=== PATIENT | male | born 1940 | race Caucasian/White ===

== ENCOUNTER 2023-09-11 07:45 | Outpatient (OUT) | payer OTHER, MEDICARE, SELFPAY ==
[2023-09-11 08:35] LABS: Creatinine Urine Random 150.14 mg/dL (20.00-300.00); Microalbum Creatinine Ratio Ur 170.5 mg/g (0.0-29.9); Microalbumin Urine Random 25.6 mg/dL (<=30.0)
[2023-09-11 08:58] LABS: Albumin Level 3.7 g/dL (3.4-5.0); Anion Gap 11.8; BUN Creatinine Ratio 20.6; Calcium 9.5 mg/dL (8.5-10.1); Carbon Dioxide 27.3 mmol/L (21.0-32.0); Chloride 102 mmol/L (98-107); Chol HDL Ratio 4.4; Cholesterol 193 mg/dL (<=200); Estimated GFR (African America 58 (>=60); Estimated GFR (Non-African Ame 48 (>=60); Glucose 119 mg/dL (74-106); HDL Cholesterol 44 mg/dL (40-60); LDL Cholesterol Calculated 121.4 mg/dL; Phosphorus 4.8 mg/dL (2.6-4.7); Potassium 4.1 mmol/L (3.5-5.1); Sodium 137 mmol/L (136-145); Triglycerides 138 mg/dL (<=150); VLDL CHOLESTEROL 27.6 mg/dL
== END 2023-09-11 07:46 | disposition home or self-care (01) ==
LOC: LAB 07:51
PROVIDERS: Visit Provider Internal Medicine
DX: E11.49 Type 2 diabetes mellitus with other diabetic neurological complication (principal); E66.9 Obesity, unspecified; Z71.3 Dietary counseling and surveillance; Z79.4 Long term (current) use of insulin
CPT/HCPCS: 36415; 80061; 80069; 82043; 82306; 82570

== ENCOUNTER 2024-03-10 16:07 | Emergency (ER) | payer OTHER, MEDICARE, SELFPAY ==
[2024-03-10 16:14] VITALS: BP 162/81; PULSE 79; TEMP 36.8; O2SAT 98; BMI 32.5
--- NOTE | 2024-03-10 16:20 | XR_ITS ---
The [address] [address] Patient Name: JELLY ALVARES MRN: [id number] date: 1940 Sex: M Assigned Patient Location: ER Current Patient Location: ER Accession/Order Number: [id number] Exam Date: 03/10/2024 16:27 Report Date: 03/10/2024 16:56 At the request of: CHARLY HEARN Procedure: XR chest 1V EXAM: CHEST 1 VIEW HISTORY: Cough, Covid + TECHNIQUE: Chest, one view. COMPARISON: None. FINDINGS: Lungs are clear. No focal consolidation, pleural effusion, or pneumothorax. Pulmonary vasculature is within normal limits. Cardiomediastinal silhouette is normal. XR/XR chest 1V IMPRESSION: 1. Clear lungs without acute cardiopulmonary disease. With patient's history of Covid infection, recommend followup imaging if symptoms worsen or persist. Electronically authenticated by: EBONY RUBIO Date: 03/10/2024 16:56
--- NOTE | 2024-03-10 16:21 | ED_ITS ---
HPI - URI/Sore Throat General Chief Complaint: Upper Respiratory Infection Stated Complaint: URTI Time Seen by Provider: 03/10/24 16:09 History of Present Illness HPI Narrative: Patient is an 83-year-old male with a 3-day history of runny nose, cough and chest congestion who presents to the ER after a positive COVID test at home. He states he talked to his doctor's office today, his doctor is aware that he tested positive for COVID and recommended that the patient stay home and take zinc. Patient states he presents to the emergency department for something for the COVID . He has no complaints of chest pain, no significant sputum production or wheezing. No objective fevers or vomiting. He has no history of diabetes, no history of coronary artery disease. He takes only a blood pressure medication daily. Related Data Home Medications ?Medication ?Instructions ?Recorded ?Confirmed spironolactone 25 mg tablet 25 mg PO DAILY 03/10/24 03/10/24 Previous Rx's ?Medication ?Instructions ?Recorded albuterol sulfate 90 mcg/actuation 2 inh inhalation Q4H PRN shortness 03/10/24 aerosol inhaler of breath or wheezing #8.5 grams dexamethasone 4 mg tablet 4 mg PO BID 5 days #10 tabs 03/10/24 Allergies Allergy/AdvReac Type Severity Reaction Status Date / Time No Known Drug Allergies Allergy Verified 03/10/24 16:13 Review of Systems ROS Constitutional Denies: fever or chills Ears, nose, mouth, and throat Reports: nasal congestion; Denies: throat pain Cardiovascular Denies: chest pain Respiratory Reports: shortness of breath and cough; Denies: wheezing Gastrointestinal Denies: nausea or vomiting Musculoskeletal Denies: back pain Integumentary/Breast Denies: rash Neurological Denies: headache Hematologic/Lymphatic Denies: easy bruising or easy bleeding Exam Narrative Exam Narrative: Gen.: Awake, alert, in no distress Head: Normocephalic, atraumatic ENT: Moist mucous membranes Respiratory: No respiratory distress, lungs clear bilaterally Cardio: Regular rate and rhythm Extremities: Moves extremities equally Psych: Normal mood and affect Neuro: No focal neuro deficit Skin: Warm, dry, intact Constitutional Vital Signs, click to edit/add: Last Vital Signs Temp 98.2 F 03/10/24 16:14 Pulse 79 03/10/24 16:14 Resp 18 03/10/24 16:14 BP 162/81 H 03/10/24 16:14 Pulse Ox 98 03/10/24 16:14 O2 Del Method Room Air 03/10/24 16:14 Course Vital Signs Vital signs: Vital Signs Temperature 98.2 F 03/10/24 16:14 Pulse Rate 79 03/10/24 16:14 Respiratory Rate 18 03/10/24 16:14 Blood Pressure 162/81 H 03/10/24 16:14 Pulse Oximetry 98 03/10/24 16:14 Oxygen Delivery Method Room Air 03/10/24 16:14 Temperature 98.2 F 03/10/24 16:14 Pulse Rate 79 03/10/24 16:14 Respiratory Rate 18 03/10/24 16:14 Blood Pressure 162/81 H 03/10/24 16:14 Pulse Oximetry 98 03/10/24 16:14 Oxygen Delivery Method Room Air 03/10/24 16:14 MDM - URI/Sore Throat MDM Narrative Medical decision making narrative: Vital signs are within normal limits, patient breathing easily in the ER. Chest x-ray is clear. Patient was given home-going instructions for COVID. Decadron, albuterol inhaler given for home. Follow-up with PCP and return to the ER if symptoms change or worsen SUPERVISED APC VISIT, PHYSICIAN ATTESTATION: Based on the medical record the care appears appropriate. ? Medical Records Attestation: I reviewed the patient's medical records. Imaging Data Chest x-ray: Attestation: I have reviewed the pertinent imaging results. Radiologist's impression: ITS Impressions Chest X-Ray 03/10/24 16:20 IMPRESSION: 1. Clear lungs without acute cardiopulmonary disease. With patient's history of Covid infection, recommend followup imaging if symptoms worsen or persist. Electronically authenticated by: EBONY RUBIO Date: 03/10/2024 16:56 Discharge Plan Discharge Stand Alone Forms: Portal Instructions Chief Complaint: Upper Respiratory Infection Clinical Impression: COVID-19 Patient Disposition: Home, Self-Care Time of Disposition Decision: 17:02 Condition: Good Prescriptions / Home Meds: New dexamethasone 4 mg tablet 4 mg PO BID 5 Days Qty: 10 0RF albuterol sulfate 90 mcg/actuation HFA aerosol inhaler 2 inh inhalation Q4H PRN (Reason: shortness of breath or wheezing) Qty: 8.5 0RF No Action spironolactone 25 mg tablet 25 mg PO DAILY Print Language: Amharic Instructions: How to Recover from COVID-19 at Home (ED) Referrals: ALONSO BOLTON [Primary Care Provider] - 1 week
[2024-03-10 17:12] VITALS: BP 158/74; O2SAT 99
== END 2024-03-10 17:12 | disposition home or self-care (01) ==
PROVIDERS: Emergency Provider Emergency Medicine; PCP Family Medicine
DX: U07.1 COVID-19 (principal); Z79.899 Other long term (current) drug therapy
CPT/HCPCS: 71045; 99283

== ENCOUNTER 2024-03-25 14:21 | Outpatient (OUT) | payer OTHER, MEDICARE, SELFPAY ==
--- NOTE | 2024-03-25 14:29 | US_ITS ---
The [address] [address] Patient Name: JELLY ALVARES MRN: [id number] date: 1940 Sex: M Assigned Patient Location: US Current Patient Location: US Accession/Order Number: [id number] Exam Date: 03/25/2024 14:30 Report Date: 03/25/2024 15:05 At the request of: ALONSO BOLTON Procedure: US venous doppler LE LT EXAM: US venous doppler LE LT HISTORY: Ulcers Of Bilateral Lower Leg, Acute Leg Pain COMPARISON: None. TECHNIQUE: Multiple sonographic images of the deep veins of the left lower extremity were obtained, supplemented with Doppler. FINDINGS: The deep veins of the left lower extremity are fairly well visualized from the groin to the mid calf. No filling defect is identified to indicate a thrombus. There is normal compression augmentation to flow. There is a nonhealing wound in the distal aspect of the lower leg and adjacent to the bone is a small incompetent varicose vein. US/US venous doppler LE LT IMPRESSION: There is no direct or indirect evidence of deep vein thrombosis in the left lower extremity at this time. Adjacent to the distal nonhealing wound is a small incompetent varicose vein, of uncertain significance. Electronically authenticated by: JAMISON MARTINEZ Date: 03/25/2024 15:05
== END 2024-03-25 14:22 | disposition home or self-care (01) ==
LOC: US 14:22
PROVIDERS: PCP Family Medicine; Visit Provider Family Medicine
DX: L97.911 Non-pressure chronic ulcer of unspecified part of right lower leg limited to breakdown of skin (principal); L97.921 Non-pressure chronic ulcer of unspecified part of left lower leg limited to breakdown of skin; T07.XXXA Unspecified multiple injuries, initial encounter; I87.2 Venous insufficiency (chronic) (peripheral); M79.605 Pain in left leg
CPT/HCPCS: 93971

== ENCOUNTER 2025-05-06 10:49 | Emergency (ER) | payer OTHER, MEDICARE, SELFPAY ==
--- OUTSIDE RECORDS SUMMARY | 2025-05-06 10:57 | XMS_ITS | Encounter Summary ---
Author Organization [facility] Address [address] [place] [address] Care Team Providers Care Cable Cutter And Swager Name Role Phone Arun Downey MD Unavailable [phone] Arun Downey MD Unavailable [phone] Gladis Cline MD Unavailable [phone] Genna Yañez MD Unavailable [phone] Unallocated, Noms Provider Primary Care Provi dilcia Encounter Details Date Type Department Care Team (Late st Contact Info) Description 10/20/2024 Orders Only [facility] Family Medicine [address] [place] [address] Arun Downey MD [address] [place] [address] Social History Tobacco Use Types Packs/Day Years Used Date Smoking Tobacco: Former Cigarettes Smokeless Tobacco: Never Comments:Last smoked : > 20 years Alcohol Use Standard Drinks/Week Comments Yes 4 (1 standard drink = 0.6 oz pur e alcohol) PHQ-2 Answer Date Recorded Patient Health Questionnaire-2 Score 0 10/23/2023 Sex and Gender Information Value Date Recorded Sex Assigned at Not on file Legal Sex Male 6:38 PM EDT Gender Identity Not on file Sexual Orientation Not on file documented as of this encounter Plan of Treatment Upcoming Encounters Date Type Department Care Team (Late st Contact Info) Description 05/09/2025 1:20 PM EDT Office Visit [facility] [address] [place] [address] Genna Yañze MD [address] [place] [address] documented as of this encounter Visit Diagnoses Not on filedocumented in this encounter Additional Health Concerns Assessment Noted Time PHQ-9 Depression Total Score: 0 10/23/19 24 2:00 PM EST documented as of this encounter Care Teams Cable Cutter And Swager Relationship Specialty Start Date End Date Arun Downey MD [address] [place] [address] PCP - [employer] 10/02/22 11/05/24 Arun Downey MD [address] [place] [address] PCP - [facility] 11/30/22 Unallocated, Noms Provider, [address] [place] [address] PCP - General Family Medicine 05/27/24 Gladis Cline MD [address] [place] [address] Referring Physician Dermatology 03/18/24 Genna Yañez MD [address] [place] [address] Referring Physician Endocrinology 03/18/24 documented as of this encounter
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
--- OUTSIDE RECORDS SUMMARY | 2025-05-06 10:57 | XMS_ITS | Encounter Summary ---
Author Organization [facility] Address [address], [address] [place] [address] Care Team Providers Care Community Resource Officer Name Role Phone Arun Downey MD Primary Care Provider [phone] Reason for Visit * Reason Comments Medication Refill Encounter Details Date Type Department Care Team (Late st Contact Info) Description 09/25/2020 Refill [facility] Neurology [address] [place] [address] Brigido Granados MD [address] [address] Medication Refill Social History Tobacco Use Types Packs/Day Years Used Date Smoking Tobacco: Never Smokeless Tobacco: Never Sex and Gender Information Value Date Recorded Sex Assigned at Not on file Legal Sex Male 1:52 PM EDT Gender Identity Not on file Sexual Orientation Not on file documented as of this encounter Plan of Treatment Upcoming Encounters Date Type Department Care Team (Late st Contact Info) Description 05/13/2025 11:00 AM EDT Appointment [facility] [address] [place] [address] Brigido Granados MD [address] [facility] [address] [place] [address] DYSPORT [address], BILATERAL DYSTONIA documented as of this encounter Visit Diagnoses Diagnosis Attention deficit hyperactivity disorder, combined type Attention deficit disorder with hyperactivity documented in this encounter Care Teams Community Resource Officer Relationship Specialty Start Date End Date Arun Downey MD PCP - General 01/08/22 documented as of this encounter
--- OUTSIDE RECORDS SUMMARY | 2025-05-06 10:57 | XMS_ITS | Encounter Summary ---
Author Organization [facility] Address [address] [place] [address] Care Team Providers Care Ski Lift Attendant Name Role Phone Arun Downey MD Unavailable [phone] Arun Downey MD Unavailable [phone] Gladis Cline MD Unavailable [phone] Genna Yañez MD Unavailable [phone] Unallocated, Noms Provider MD Primary Care Provi dilcia Encounter Details Date Type Department Care Team (Late st Contact Info) Description 01/12/2024 Orders Only [facility] Family Medicine [address] [facility] [place] [address] Genna Yañez MD [address] [place] [address] Social History Tobacco Use Types Packs/Day Years [...] Description 05/09/2025 1:20 PM EDT Office Visit [facility] [address] [place] [address] Genna Yañez MD [address] [place] [address] documented as of this encounter Procedures Procedure Name Priority Date/Time Associated Diagnosis Comments HEMOGLOBIN A1C Routine 01/12/2024 1:58 PM EDT documented in this encounter Results * (ABNORMAL) Hemoglobin A1c (01/12/2024 1:58 PM EDT) HEMOGLOBIN A1C 8.7 H Blood Venous blood specimen / Unknown Genna Yañez MD LAB BLOOD ORDERABLES Edited R esult - Final documented in this encounter Visit Diagnoses Not on filedocumented in this encounter Additional Health Concerns Assessment Noted Time PHQ-9 Depression Total Score: 0 10/23/19 24 2:00 PM EST documented as of this encounter Care Teams Ski Lift Attendant Relationship Specialty Start Date End Date Arun Downey MD [address] [place] [address] (Fax) PCP - [employer] 10/02/22 11/05/24 Arun Downey MD [address] [place] [address] (Fax) PCP - [employer] 11/30/22 Unallocated, Noms Provider, [address] [place] [address] PCP - General Family Medicine 05/27/24 Gladis Cline MD [address] [place] [address] Referring Physician Dermatology 03/18/24 Genna Yañez MD [address] [place] [id number] Referring Physician Endocrinology 03/18/24 documented as of this encounter
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
--- OUTSIDE RECORDS SUMMARY | 2025-05-06 10:57 | XMS_ITS | Clinical Summary ---
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 Active lisinopril 10 mg tablet Take 10 mg by mouth once daily. Active sitaGLIPtin-met FORMIN (JANUMET XR) 50-1,000 mg TM24 Take by mouth. Active Aspirin 81 mg Tab Take 81 mg by mouth. Active nateglinide (STARLIX) 120 mg tablet Take 120 mg by mouth as directed. Active tamsulosin (FLOMAX) 0.4 mg Cp24 Take 0.4 mg by mouth. Active montelukast (SINGULAIR) 10 mg tablet Take 10 mg by mouth as directed. Active ferrous sulfate 324 mg (65 mg iron) TbEC Take 1 tablet by mouth twice daily with meals. 60 tablet 0 05/22/2013 Active docusate sodium 100 mg capsule Take 1 capsule by mouth twice daily. 60 capsule 0 05/22/2013 Active traMADol (ULTRAM) 50 mg tablet Take 50 mg by mouth every 4 hours as needed. 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 12/16/2017 Overview (12/16/2017): Added automatically from request for surgery [id number] Primary localized osteoarthrosis, lower leg 05/02 Arthritis of knee, degenerative 01/04/2013 Unspecified essential hypertension Overview (05/20/2013): Essential hypertension Immunizations Immunization Administration Dates Next Due influenza vaccine, whole virus 12/30/2012 pneumococcal polysaccharide (PPV23) vaccine, 23 valent (PNEUMOVAX 23) 12/30/2012 Social History Tobacco Use Types Packs/Day Years Used Date Smoking Tobacco: Former Cigarettes 0 05/19/1953 - 05/19/1973 Pipe Cigars Smokeless Tobacco: Never Tobacco Cessation:Counseling Given: Yes Alcohol Use Standard Drinks/Week Comments Yes 1.3 (1 standard drink = 0.6 oz p ure alcohol) PHQ-2 Answer Date Recorded PHQ-2 score 1 12/16/2017 Area Deprivation Index Answer Date Oren rded National Score (1-100), lower number is lower ri sk Not on file 08/07/2020 State Score (1-10), lower number is lower risk N ot on file 08/07/2020 Data from: https://www.neighborhoodatlas.medicine.[facility].edu/. Last address used for calculation Not on file 08/07/2020 Sex and Gender Information Value Date Recorded Sex Assigned at Not on file Legal Sex Male 8:54 AM EST Gender Identity Not on file Sexual Orientation Not on file Last Filed Vital Signs Vital Sign Reading Time Taken Comments Blood Pressure 146/86 12/17/2017 2:34 PM EDT Pulse 92 12/17/2017 2:34 PM EDT Temperature 35.7 C (96.2 F) 12/17/2017 1:34 PM EDT Respiratory Rate 16 12/17/2017 2:34 PM EDT Oxygen Saturation 94% 12/17/2017 2:34 PM EDT Inhaled Oxygen Concentration - - Weight 99.8 kg (220 lb 0.3 oz) 12/17/2017 1:34 P M EDT Height 175.3 cm (5' 9 ) 05/19/2013 6:55 PM EDT Body Mass Index 32.49 05/19/2013 6:55 PM EDT Plan of Treatment Health Maintenance Due Date Last Done Comments Anxiety Screening 1958 Depression Screening 1958 DTaP,Tdap,Td Vaccine (1 - Tdap) 1960 Shingrix Vaccine (1 of 2) 1991 Pneumococcal Vaccine: 50+ (2 of 2 - PCV) 12/30/2013 12/30/2012 Diabetes Screening 05/22/2016 05/22/2013, 0 05/21/2013, 05/20/2013, Additional history exists RSV Vaccine (1 - 1-dose 75+ series) 2016 Advance Directive Discussion 09/01/2024 Influenza Vaccine (#1) 2025 12/30/2012 Medical Devices Implanted Type Area Insurance Law Specialist Device Identifier Shelf Expiration Date Model / Serial / Lot 0---Cement Bone Simplex P W/ Tobramycin 1gm - [id number] Implanted:Qty: 2 on 05/19/2013 at [facility] Cement / Putty Right: Bone - Knee [employer] 10/29/2014 [id number] / / [id number]---Ins Tib 6 9mm Kn X3 Ps Trthln - [id number] Implanted:Qty: 1 on 05/19/2013 at [facility] Joint - Knee Right: Bone - Knee [employer] 02/28/2018 [id number] / / [id number]---Comp Fem 6 Rt Kn Ps Alfonso Trthln - [id number] Implanted:Qty: 1 on 05/19/2013 at [facility] Joint - Knee Right: Bone - Knee [employer] 02/28/2018 [id number] / / [id number]---Comp Pat 10mm 35mm Asym Trthln - [id number] Implanted:Qty: 1 on 05/19/2013 at [facility] Joint - Patella Right: Bone - Knee [employer] 08/31/2017 [id number] / / [id number]---Baseplt Tib Trthln 6 Prim - [id number] Implanted:Qty: 1 on 05/19/2013 at [facility] Plate Right: Bone - Knee [employer] 05/31/2018 [id number] / / [id number] Procedures Procedure Name Priority Date/Time Associated Diagnosis Comments BASIC METABOLIC PANEL (EU,FV,HL,SARBJIT,MM,SP) Routine 05/22/2013 6:20 AM EDT from Last 3 Months or Most Recently Relevant to Health Maintenance Results * (ABNORMAL) BASIC METABOLIC PANEL (EU,FV,HL,LK,SARBJIT,MM,SP) (05/22/2013 6:20 AM EDT) Glucose 144(H) 65 - 100 mg/dL [facility] BUN 15 10 - 25 mg/dL [facility] Creatinine 1.02 0.70 - 1.40 mg/dL [facility] Sodium 135 135 - 146 mmol/L [facility] Potassium 4.4 3.5 - 5.0 mmol/L [facility] Chloride 99 98 - 110 mmol/L [facility] CO2 28 23 - 32 mmol/L [facility] Calcium 8.1(L) 8.5 - 10.5 mg/dL [facility] Glom Filtration Rate (AA) >60 >60 [facility] Glom Filtration Rate (AMARILIS) >60 >60 . [facility] Blood specimen (specimen) BLOOD SPECIMEN / Unknown 05/22/2013 6:20 AM EDT 05/22/2013 7:04 AM EDT us Jimmy Rubin MD [facility] Final Result [facility] [address] [address] from Last 3 Months or Most Recently Relevant to Health Maintenance Insurance [employer] MEDICARE MEDICARE [facility] Advance Directives Documents on File Type Date Recorded Patient Telecommunications Specialist Expl anation Advance Directive(s) 05/25/2013 9:57 AM Care Teams Trailer Truck Driver Relationship Specialty Start Date End Date Antonio Maki Jr., [facility] [place] [address] PCP - General Internal Medicine 12/22/12
--- OUTSIDE RECORDS SUMMARY | 2025-05-06 10:57 | XMS_ITS | Encounter Summary ---
Author Organization [facility] Address [address] [place] [address] Care Team Providers Care It Systems Analyst Consultant Name Role Phone Arun Downey MD Unavailable [phone] Arun Downey MD Unavailable [phone] Gladis Cline MD Unavailable [phone] Genna Yañez MD Unavailable [phone] Unallocated, Noms Provider Primary Care Provi dilcia Encounter Details Date Type Department Care Team (Late st Contact Info) Description 06/30/2024 Orders Only [facility] [address] [place] [address] Brain November, Venous stasis dermatitis of both lower extremities; Multiple open wounds; Venous insufficiency; Type 2 diabetes mellitus with stage 3a chronic kidney disease, with long-term current use of insulin (HCC); Varicose veins of bilateral lower extremities with other complications Social History Tobacco Use Types Packs/Day Years [...] PM EDT Office Visit [facility] [address] [place] [address] Genna Yañez MD [address] [place] [address] documented as of this encounter Visit Diagnoses Diagnosis Venous stasis dermatitis of both lower extremities Multiple open wounds Open wound(s) (multiple) of unspecified site(s), without mention of complication Venous insufficiency Unspecified venous (peripheral) insufficiency Type 2 diabetes mellitus with stage 3a chronic kidney disease, 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, with long-term current use of insulin (HCC) documented in this encounter Additional Health Concerns Assessment Noted Time PHQ-9 Depression Total Score: 0 10/23/19 24 2:00 PM EST documented as of this encounter Care Teams It Systems Analyst Consultant Relationship Specialty Start Date End Date Arun Downey MD [address] [facility] [address] [place] [address] PCP - [employer] 10/02/22 11/05/24 Arun Downey MD [address] [address] PCP - [employer] 11/30/22 Unallocated, Guillermo Thurman MD [address] [place] [address] PCP - General Family Medicine 05/27/24 Gladis Cline MD [address] [place] [address] Referring Physician Dermatology 03/18/24 Genna Yañez MD [address] [place] [address] Referring Physician Endocrinology 03/18/24 documented as of this encounter
--- OUTSIDE RECORDS SUMMARY | 2025-05-06 10:57 | XMS_ITS | Clinical Summary ---
Author Organization [facility] Address [address] [facility], [address] [place] [address] Care Team Providers Care Embedded Case Manager Name Role Phone Arun Downey MD Primary Care Provider [phone] Allergies No known active allergies Medications metFORMIN (GLUCOPHAGE) 1000 MG tablet Take 1 tablet by mouth 2 times daily (with meals) Active traMADol (ULTRAM) 50 MG tablet Take 50 mg by mouth every 6 hours as needed for Pain.. Active insulin detemir (LEVEMIR) 100 UNIT/ML injection vial Inject 60 Units into the skin nightly Active aspirin EC 81 MG EC tablet Take 81 mg by mouth daily Active lisinopril (PRINIVIL;ZESTR IL) 10 MG tablet Take 1 tablet by mouth daily Active tamsulosin (FLOMAX) 0.4 MG capsule Take 1 capsule by mouth daily Active montelukast (SINGULAIR) 10 MG tablet Take 1 tablet by mouth nightly Active Cholecalciferol (VITAMIN D3) 2000 units CAPS Take 2,000 Units by mouth Active colesevelam (WELCHOL) 625 MG tablet Take 3 tablets by mouth 2 times daily (with meals) Active pioglitazone (ACTOS) 15 MG tablet Take 1 tablet by mouth daily Active pravastatin (PRAVACHOL) 40 MG tablet Take 1 tablet by mouth daily Active diclofenac sodium 1 % GEL Apply 2 g topically 2 times daily Active apixaban (ELIQUIS) 5 MG TABS tablet Take 1 tablet by mouth 2 times daily 60 tablet 8 Active insulin lispro (HUMALOG) 100 UNIT/ML injection vial Inject 0-12 Units into the skin 3 times daily (with meals) pls give pt rick. Dx:E11.65 10 mL 3 8 Active Additional Information Patient not taking.Reported on 10/12/2024 insulin glargine (LANTUS) 100 UNIT/ML injection pen Insulin Glargine Insulin Glargine Active 50 UNIT Subcutaneous Daily July 31, 2019 9:29am 07-31-2019 [facility] ([id number]) 9 Active B-D UF III MINI PEN NEEDLES 31G X 5 MM [facility] 9 Active NOVOLOG FLEXPEN 100 UNIT/ML injection pen INJECT 6-8-10 UNITS ACCORDING TO MEAL SIZE (PLUS SLIDIDNG SCALE EXPECT UP TO 40 TOTAL DAILY UNITS) 2 Active ciprofloxacin (CIPRO) 500 MG tablet TAKE 1 TABLET (500 MG) BY MOUTH IN THE MORNING AND BEFORE BEDTIME FOR 10 DAYS 5 Active Continuous Glucose Sensor (FREESTYLE YUE 2 SENSOR) [facility] 4 Active FIASP FLEXTOUCH 100 UNIT/ML SOPN INJECT 15-18-20 UNITS ACCORDING TO MEAL SIZE PLUS ISS #2 (EXPECT DAILY DOSE OF 70 UNITS) 5 Active spironolactone (ALDACTONE) 25 MG tablet Take 1 tablet by mouth 2 times daily 4 Active methylphenidate (RITALIN) 10 MG tabletIndicatio ns:Cataplexy and narcolepsy Take 1 tablet by mouth 3 times daily for 30 days. Max Daily Amount: 30 mg 90 tablet 5 Active Active Problems Problem Noted Date Diagnosed Date Failed neck syndrome 05/07/2023 Left lower quadrant pain 03/29/2022 Unspecified abdominal pain 03/29/2022 Cough, unspecified 12/15/2021 Localized edema 07/11/2021 Other specified arthritis, unspecified site 07/02 Type 2 diabetes mellitus with hyperglycemia 07/02 Other specified symptoms and signs involving the circulatory and respiratory systems 07/06/2021 Local infection of the skin and subcutaneous tissue, unspecified 06/21/2021 Unspecified open wound, left lower leg, initial encounter 06/21/2021 Cervical dystonia 12/12/2020 Attention deficit hyperactivity disorder, combin ed type 02/07/2020 Cutaneous hypersensitivity 12/09/2019 Essential (primary) hypertension 10/04/2019 Overview (04/25/2022): Overview: Essential hypertension Essential hypertension 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 Dietary counseling and surveillance 01/15/2019 shelter current use of insulin 01/15/2019 Mixed hyperlipidemia 01/15/2019 Obesity 01/15/2019 Type 2 diabetes mellitus 01/08/2019 Bursitis of right shoulder 06/22/2018 Bursitis of right shoulder 06/22/2018 Effusion, left wrist 06/22/2018 Left wrist pain 06/22/2018 Impingement syndrome of right shoulder 8 Impingement syndrome of right shoulder region Cervical radiculopathy 12/16/2017 Facet arthropathy, cervical 12/16/2017 Overview (05/01/2021): Overview: Added automatically from request for surgery [id number] Added automatically from request for surgery [id number] Cervical spondylosis 12/16/2017 Overview (05/01/2021): Overview: Added automatically from request for surgery [id number] Overview: Added automatically from request for surgery [id number] Added automatically from request for surgery [id number] Added automatically from request for surgery [id number] Primary localized osteoarthrosis, lower leg 05/02 Osteoarthritis of knee 01/04/2013 Spasmodic torticollis Encounters Date Type Department Care Team Description 03/21/2025 Refill [facility] Neurology [address] [place] [address] Brigido Granados MD Medication Refill 02/14/2025 Telephone [facility] Neurology [address] [place] [address] [address] [place] [address] Brigido Granados MD DYSPORT 02/14/2025 Refill [facility] Neurology [address] [place] [address] [address] [place] [address] Brigido Granados MD Medication Refill from Last 3 Months Immunizations Immunization Administration Dates Next Due Pneumococcal, PPSV23, PNEUMO VAX 23, (age 2y+), SC/IM, 0.5mL 12/30/2012 Family History Medical History Relation Name Comments Cancer Mother Relation Name Status Comments Mother Social History Tobacco Use Types Packs/Day Years Used Date Smoking Tobacco: Never Smokeless Tobacco: Never Tobacco Cessation:Counseling Given: Not Answered Sex and Gender Information Value Date Recorded Sex Assigned at Not on file Legal Sex Male 1:52 PM EDT Gender Identity Not on file Sexual Orientation Not on file Last Filed Vital Signs Vital Sign Reading Time Taken Comments Blood Pressure 136/84 10/12/2024 1:34 PM EST Pulse 64 10/12/2024 1:34 PM EST Temperature 36 C (96.8 F) 08/14/2018 3:28 PM EST Respiratory Rate 18 05/19/2018 11:47 PM EDT Oxygen Saturation 98% 05/19/2018 11:47 PM EDT Inhaled Oxygen Concentration - - Weight 101.6 kg (224 lb) 10/12/2024 1:34 PM EST Height 167.6 cm (5' 6 ) 05/08/2022 2:29 PM EDT Body Mass Index 36.15 05/08/2022 2:29 PM EDT Plan of Treatment Upcoming Encounters Date Type Department Care Team (Late st Contact Info) Description 05/13/2025 11:00 AM EDT Appointment [facility] [address] [place] [address] Brigido Granados MD [address] [facility] [address] [place] [address] DYSPORT 1,000 UNITS, BILATERAL DYSTONIA Health Maintenance Due Date Last Done Comments Lipids 1950 Depression Screen 1953 Diabetic Alb to Cr ratio (uACR) test 1959 Respiratory Syncytial Virus (RSV) or age 60 yrs+ (1 - 1-dose 75+ series) 2016 GFR test (Diabetes, CKD 3-4, OR last GFR 15-59) 05/19/2019 05/19/2018, 04/28/2018, 04/27/2018, Additional history exists COVID-19 Vaccine ( season) 2024 08/05/2022, 01/11/2022, 06/05/2021, Additional history exists Annual Wellness Visit (Medicare Advantage) 09/01/2024 Flu vaccine (#1) 04/01/2025 10/08/2024, 03/2022, 06/05/2021, Additional history exists DTaP/Tdap/Td vaccine (3 - Td or Tdap) 06/19/2031 06/19/2021, 06/19/2021 Shingles vaccine Completed 09/06/2019, , 08/14/2015 Pneumococcal 50+ years Vaccine Completed 05/10/2020, 09/17/2016, 12/30/2012 Hepatitis A vaccine Aged Out No longe r eligible based on patient's age to complete this topic Hepatitis B vaccine Aged Out No longe r eligible based on patient's age to complete this topic Hib vaccine Aged Out No longer eligi ble based on patient's age to complete this topic Meningococcal (ACWY) vaccine Aged Out No longer eligible based on patient's age to complete this topic Meningococcal B vaccine Aged Out No l onger eligible based on patient's age to complete this topic Polio vaccine Aged Out No longer elig ible based on patient's age to complete this topic Medical Devices Implanted Type Area Art Education Professor Device Identifier Shelf Expiration Date Model / Serial / Lot Floseal Hemostat Matrx 5ml Needle Free Implanted:Qty : 1 on 04/27/2018 by Savage Smalls MD at [facility] Bone/Gra ft/Tissu e/Human/ Synth N/A: Spine Cervical [employer] [id number] 09/10/2019 [id number] / / [id number] Procedures Procedure Name Priority Date/Time Associated Diagnosis Comments COMPREHENSIVE METABOLIC PANEL STAT 05/19/2018 5:45 PM EDT from Last 3 Months or Most Recently Relevant to Health Maintenance Results * (ABNORMAL) Comprehensive Metabolic Panel (05/19/2018 5:45 PM EDT) Sodium 137 132 - 144 mEq/L 05/19/2018 6:08 PM [facility] Potassium 4.2 3.5 - 5.1 mEq/L 05/19/2018 6:08 PM [facility] Chloride 96(L) 98 - 107 mEq/L 05/19/2018 6:08 PM [facility] CO2 28 22 - 29 mEq/L 05/19/2018 6:08 PM [facility] Anion Gap 13 7 - 13 mEq/L 05/19/2018 6:08 PM [facility] Glucose 216(H) 74 - 109 mg/dL 05/19/2018 6:08 PM [facility] BUN 13 8 - 23 mg/dL 05/19/2018 6:08 PM [facility] Creatinine 0.74 0.70 - 1.20 mg/dL 05/19/2018 6:08 PM [facility] GFR Non- >60.0 >60 05/19/2018 6:08 PM [facility] Comment: >60 mL/min/1.73m2 EGFR, calc. for ages 18 and older using the MDRD formula (not corrected for weight), is valid for stable renal function. GFR >60.0 >60 05/19/2018 6:08 PM [facility] Comment: >60 mL/min/1.73m2 EGFR, calc. for ages 18 and older using the MDRD formula (not corrected for weight), is valid for stable renal function. Calcium 9.7 8.6 - 10.2 mg/dL 05/19/2018 6:08 PM [facility] Total Protein 7.3 6.4 - 8.1 g/dL 05/19/2018 6:08 PM [facility] Albumin 4.0 3.9 - 4.9 g/dL 05/19/2018 6:08 PM [facility] Total Bilirubin 0.9 0.0 - 1.2 mg/dL 05/19/2018 6:08 PM [facility] Alkaline Phosphatase 46 35 - 104 U/L 05/19/2018 6:08 PM [facility] ALT 12 0 - 41 U/L 05/19/2018 6:08 PM EDT [facility] AST 12 0 - 40 U/L 05/19/2018 6:08 PM EDT [facility] Globulin 3.3 2.3 - 3.5 g/dL 05/19/2018 6:08 PM EDT [facility] BLOOD SPECIMEN / Unknown 05/19/2018 5:45 PM EDT 05/19/2018 6:05 PM EDT us Jitendra Roy DO CHEMISTRY ORDERABLES Final Res ult [facility] [address] [place] [address], [facility] [phone] from Last 3 Months or Most Recently Relevant to Health Maintenance Insurance [employer] MEDICARE SUPP [facility] Advance Directives * Full Code (Latest Code Status on File) Date Activated Date Inactivated Comments 04/27/2018 3:56 PM 04/28/2018 4:26 PM Care Teams Embedded Case Manager Relationship Specialty Start Date End Date Arun Downey MD PCP - General 01/08/22
--- OUTSIDE RECORDS SUMMARY | 2025-05-06 10:57 | XMS_ITS | Encounter Summary ---
Author Organization [facility] Address [address] [place] [address] Care Team Providers Care Data Programmer Name Role Phone Arun Downey MD Unavailable [phone] Arun Downey MD Unavailable [phone] Gladis Cline MD Unavailable [phone] Genna Yañez MD Unavailable [phone] Unallocated, Noms Provider MD Primary Care Provi dilcia Encounter Details Date Type Department Care Team (Late st Contact Info) Description 10/23/2023 Orders Only [facility] [address] [facility] [place] [address] Genna Yañez MD [address] [place] [address] Social History Tobacco Use Types Packs/Day Years [...] on file documented as of this encounter Functional Status * Over the past 2 weeks, how often have you been bothered by any of the following problems? Question Answer Date of Assessment Author Little interest or pleasure in doing things Not at all 10/23/2023 2:00 PM Karla Devlin MA Feeling down, depressed, or hopeless Not at all 10/23/2023 2:00 PM Karla Devlin MA Patient Health Questionnaire -2 Score 0 10/23/2023 2:00 PM Karla Devlin MA * Question Answer Date of Assessment Author Trouble falling or staying asleep, or sleeping too much Not at all 10/23/2023 2:00 PM Karla Devlin MA Feeling tired or having peterson le energy Not at all 10/23/2023 2:00 PM Karla Devlin MA Poor appetite or overeating Not at all 10/23/2023 2: 00 PM Karla Devlin MA Feeling bad about yourself - or that you are a failure or have let yourself or your family down Not at all 10/23/2023 2:00 PM Karla Tsai MA Trouble concentrating on thi ngs, such as reading the newspaper or watching television Not at all 10/23/2023 2:00 PM Karla Devlin MA Moving or speaking so slowly that other people could have noticed? Or the opposite - being so fidgety or restless that you have been moving around a lot more than usual. Not at all 10/23/2023 2:00 PM Karla Devlin MA Thoughts that you would be b hero off or hurting yourself in some way Not at all 10/23/2023 2:00 PM Karla Devlin MA Patient Health Questionnaire -9 Score 0 10/23/2023 2:00 PM Karla Devlin MA documented as of this encounter Plan of Treatment Upcoming Encounters Date Type Department Care Team (Late st Contact Info) Description 05/09/2025 1:20 PM EDT Office Visit [facility] [address] [place] [address] Genna Yañez MD [address] [place] [address] documented as of this encounter Procedures Procedure Name Priority Date/Time Associated Diagnosis Comments MICROALBUMIN / CREATININE URINE RATIO Routine 09/11/2023 1:29 PM EST documented in this encounter Results * (ABNORMAL) Microalbumin / creatinine urine ratio (09/11/2023 1:29 PM EST) MICROALBUMIN, URINE 25.6 ALB/CREAT RATIO 170.5 H URINE CREAT 150.14 Urine Urine specimen obtained by clean catch procedure / Unknown us Genna Yañez MD LAB URINE ORDERABLES Edited R esult - Final documented in this encounter Visit Diagnoses Not on filedocumented in this encounter Additional Health Concerns Assessment Noted Time PHQ-9 Depression Total Score: 0 10/23/19 24 2:00 PM EST documented as of this encounter Care Teams Data Programmer Relationship Specialty Start Date End Date Arun Downey MD [address] [facility] [address] [place] [address] PCP - [employer] 10/02/22 11/05/24 Arun Downey MD [address] [address] PCP - [employer] 11/30/22 Unallocated, Noms Provider, [address] [place] [address] PCP - General Family Medicine 05/27/24 Gladis Cline MD [address] [place] [address] Referring Physician Dermatology 03/18/24 Genna Yañez MD [address] [place] [address] Referring Physician Endocrinology 03/18/24 documented as of this encounter
--- OUTSIDE RECORDS SUMMARY | 2025-05-06 10:57 | XMS_ITS | Encounter Summary ---
Author Organization [facility] Address [address] [place] [address] Care Team Providers Care Rental Car Porter Name Role Phone Arun Bolton MD Unavailable [phone] Arun Bolton MD Unavailable [phone] Gladis Cline MD Unavailable [phone] Genna Yañez MD Unavailable [phone] Unallocated, [facility] Provider Primary Care Provi dilcia Encounter Details Date Type Department Care Team (Late st Contact Info) Description 03/25/2024 Clinisync Result Encounter [facility] External Department Unsolicited Arun Bolton MD [address] [facility] [address] [place] [address] Social History Tobacco Use Types Packs/Day Years [...] [facility] [address] [place] [phone] Genna Yañez MD [address] [place] [address] documented as of this encounter Procedures Procedure Name Priority Date/Time Associated Diagnosis Comments US VENOUS DOPPLER LE LT 03/25/2024 3:05 PM EDT documented in this encounter Results * US VENOUS DOPPLER LE LT (03/25/2024 3:05 PM EDT) Anatomical Region Laterality Modality Other 03/25/2024 3:05 PM EDT Narrative 03/25/2024 3:08 PM EDT [address] [address] Ultrasound Report Signed Patient: JELLY ALVARES MR#: [id number] : 1940 Acct:[id number] Age/Sex: 83 / M ADM Date: 03/25/24 Loc: US Attending Dr: ARUN BOLTON Ordering Physician: ARUN BOLTON Date of Service: 03/25/24 Procedure(s): US venous doppler LE LT Accession Number(s): [id number] cc: ARUN BOLTON [address] [address] Patient Name: JELLY ALVRAES MRN: [id number] date: 1940 Sex: M Assigned Patient Location: US Current Patient Location: US Accession/Order Number: [id number] Exam Date: 03/25/2024 14:30 Report Date: 03/25/2024 15:05 At the request of: ARUN BOLTON Procedure: US venous doppler LE LT EXAM: US venous doppler LE LT HISTORY: Ulcers Of Bilateral Lower Leg, Acute Leg Pain COMPARISON: None. TECHNIQUE: Multiple sonographic images of the deep veins of the left lower extremity were obtained, supplemented with Doppler. FINDINGS: The deep veins of the left lower extremity are fairly well visualized from the groin to the mid calf. No filling defect is identified to indicate a thrombus. There is normal compression augmentation to flow. There is a nonhealing wound in the distal aspect of the lower leg and adjacent to the bone is a small incompetent varicose vein. US/US venous doppler LE LT IMPRESSION: There is no direct or indirect evidence of deep vein thrombosis in the left lower extremity at this time. Adjacent to the distal nonhealing wound is a small incompetent varicose vein, of uncertain significance. Electronically authenticated by: JAMISON FONTANA Date: 03/25/2024 15:05 Dictated By: Jamison Fontana M.D. Signed By: 03/25/24 1508 DD/ 1505 TD/TT: Instrument Assembly Supervisor: Procedure Note Radiology, Radiologist, MD - 03/25/2024 [place] [address] Ultrasound Report Signed Patient: JELLY ALVARES WMR#: [id number] : 1940cct:[id number] Age/Sex: 83 / MADM Date: 03/25/24 Loc: US Attending Dr: ARUN BOLTON Ordering Physician: ARUN BOLTON Date of Service: 03/25/24 Procedure(s): US venous doppler LE LT Accession Number(s): [id number] cc: ARUN BOLTON [address] [address] Patient Name: JELLY ALVARES MRN: [id number] date: 1940 Sex: M Assigned Patient Location: US Current Patient Location: US Accession/Order Number: [id number] Exam Date: 03/25/2024 14:30 Report Date: 03/25/2024 15:05 At the request of: ARUN BOLTON Procedure: US venous doppler LE LT EXAM: US venous doppler LE LT HISTORY: Ulcers Of Bilateral Lower Leg, Acute Leg Pain COMPARISON: None. TECHNIQUE: Multiple sonographic images of the deep veins of the left lower extremity were obtained, supplemented with Doppler. FINDINGS: The deep veins of the left lower extremity are fairly well visualized from the groin to the mid calf. No filling defect is identified toindicate a thrombus. There is normal compression augmentation to flow. There is a nonhealing wound in the distal aspect of the lower leg andadjacent to the bone is a small incompetent varicose vein. US/US venous doppler LE LT IMPRESSION: There is no direct or indirect evidence of deep vein thrombosis in theleft lower extremity at this time. Adjacent to the distal nonhealing wound is a small incompetent varicosevein, of uncertain significance. Electronically authenticated by: JAMISON FONTANA Date: 03/25/2024 15:05 Dictated By: Jamison Fontana M.D. Signed By:03/25/24 1508 DD/ 1505 TD/TT: Instrument Assembly Supervisor: Arun Bolton MD [facility] Final Resu lt documented in this encounter Visit Diagnoses Not on filedocumented in this encounter Additional Health Concerns Assessment Noted Time PHQ-9 Depression Total Score: 0 10/23/19 24 2:00 PM EST documented as of this encounter Care Teams Rental Car Porter Relationship Specialty Start Date End Date Arun Bolton MD [address] [place] [address] PCP - [employer] 10/02/22 11/05/24 Arun Bolton MD [address] [place] [address] PCP - [employer] 11/30/22 Unallocated, [facility] Provider, [address] [place] [address] PCP - General Family Medicine 05/27/24 Gladis Cline MD [address] [place] [address] Referring Physician Dermatology 03/18/24 Genna Yañez MD [address] [place] [address] Referring Physician Endocrinology 03/18/24 documented as of this encounter
--- OUTSIDE RECORDS SUMMARY | 2025-05-06 10:57 | XMS_ITS | Encounter Summary ---
Author Organization [facility] Address [address] [place] [address] Care Team Providers Care Fitter Type Bar And Segment Name Role Phone Arun Downey MD Unavailable Arun Downey MD Unavailable [phone] Gladis Cline MD Unavailable [phone] Genna Yañez MD Unavailable [phone] Unallocated, [facility] Provider Primary Care Provi dilcia Encounter Details Date Type Department Care Team (Late st Contact Info) Description 09/30/2023 Orders Only [facility] [address] [place] [address] Genna Yañez MD [address] [place] [address] Social History Tobacco Use Types Packs/Day Years Used Date Smoking Tobacco: Former Cigarettes Comments:Last smoked : > 20 years Alcohol [...] PM EDT Office Visit [facility] [address] [place] [address] Genna Yañez MD [address] [place] [address] documented as of this encounter Procedures Procedure Name Priority Date/Time Associated Diagnosis Comments URIC ACID, 24 HOUR URINE (W/O CREATININE) Routine 09/30/2023 4:24 PM EST VITAMIN D 25 HYDROXY TOTAL Routine 09/30/2023 4:24 PM EST LIPID PANEL Routine 09/30/2023 4:24 PM EST COMPREHENSIVE METABOLIC PANEL Routine 09/30/2023 4:24 PM EST documented in this encounter Results * Comprehensive metabolic panel (09/30/2023 4:24 PM EST) Blood Venous blood specimen / Unknown Result [facility] Genna Yañez MD LAB BLOOD ORDERABLES Final Re sult * Lipid panel (09/30/2023 4:24 PM EST) Blood Venous blood specimen / Unknown Genna Yañez MD LAB BLOOD ORDERABLES Final Re sult * Vitamin D 25 hydroxy (09/30/2023 4:24 PM EST) Blood Venous blood specimen / Unknown Result [facility] Genna Yañez MD LAB BLOOD ORDERABLES Final Re sult * Uric acid, urine, 24 hour (09/30/2023 4:24 PM EST) Urine Urine specimen obtained by clean catch procedure / Unknown Result [facility] Genna Yañez MD LAB URINE ORDERABLES Final Re sult documented in this encounter Visit Diagnoses Not on filedocumented in this encounter Care Teams Fitter Type Bar And Segment Relationship Specialty Start Date End Date Arun Downey MD [address] [facility] [address] [place] [address] PCP - [employer] 10/02/22 11/05/24 Arun Downey MD [address] [place] [address] (Fax) PCP - [employer] 11/30/22 Unallocated, [facility] MD [facility] [address] [place], [place] [id number] PCP - General Family Medicine 05/27/24 Gladis Cline MD [address] [place] [address] Referring Physician Dermatology 03/18/24 Genna Yañez MD [address] [place] [address] Referring Physician Endocrinology 03/18/24 documented as of this encounter
--- OUTSIDE RECORDS SUMMARY | 2025-05-06 10:57 | XMS_ITS | Encounter Summary ---
Author Organization [facility] Address [address] [place] [address] Care Team Providers Care Substance Abuse Prevention Coordinator Name Role Phone Arun Downey MD Unavailable [phone] Arun Downey MD Unavailable [phone] Gladis Cline MD Unavailable [phone] Genna Yañez MD Unavailable [phone] Unallocated, [facility] Provider Primary Care Provi dilcia Encounter Details Date Type Department Care Team (Late Contact Info) Description 04/29/2024 Orders Only [facility] Family Medicine [address] [place] [address] Arun Downey MD [address] [place] [address] Social History Tobacco Use Types Packs/Day Years [...] Visit [facility] [address] [place] [address] Genna Yañez MD [address] [place] [address] documented as of this encounter Visit Diagnoses Not on filedocumented in this encounter Additional Health Concerns Assessment Noted Time PHQ-9 Depression Total Score: 0 10/23/19 24 2:00 PM EST documented as of this encounter Care Teams Substance Abuse Prevention Coordinator Relationship Specialty Start Date End Date Arun Downey MD [address] [place] [address] PCP - [employer] 10/02/22 11/05/24 Arun Downey MD [address] [place] [address] PCP - [employer] 11/30/22 Unallocated, [facility] Provider, [address] [place] [address] PCP - General Family Medicine 05/27/24 Gladis Cline MD [address] [place] [address] Referring Physician Dermatology 03/18/24 Genna Yañez MD [address] [place] [address] Referring Physician Endocrinology 03/18/24 documented as of this encounter
--- OUTSIDE RECORDS SUMMARY | 2025-05-06 10:57 | XMS_ITS | Encounter Summary ---
Author Organization [facility] Address [address] [facility], [address] [place] [address] Care Team Providers Care Supervisor Grading Name Role Phone Arun Downey MD Primary Care Provider [phone] Reason for Visit * Reason Comments Medication Refill Encounter Details Date Type Department Care Team (Late st Contact Info) Description 05/12/2020 Refill [facility] Neurology [address] [facility] [address] [place] [address] Brigido Granados MD [address] [address] Medication Refill Social History Tobacco Use Types [...] 05/13/2025 11:00 AM EDT Appointment [facility] [address] [place] [address] Brigido Granados MD [address] [facility] [address] [place] [address] DYSPORT [address], BILATERAL [place]ON[place] documented as of this encounter Visit Diagnoses Diagnosis Attention deficit hyperactivity disorder, combined type Attention deficit disorder with hyperactivity documented in this encounter Care Teams Supervisor Grading Relationship Specialty Start Date End Date Arun Downey MD PCP - General 01/08/22 documented as of this encounter
[2025-05-06 10:58] VITALS: BP 143/88; PULSE 94; TEMP 36.4; O2SAT 98; BMI 32.5
--- OUTSIDE RECORDS SUMMARY | 2025-05-06 11:03 | XMS_ITS | CCD ---
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 above: Result Comment: <100 mg/dl OPTIMAL 100 - 129 mg/dl NEAR OR ABOVE OPTIMAL 130 - 159 mg/dl BORDERLINE HIGH 160 - 189 mg/dl HIGH >190 mg/dl VERY HIGH Performed By: #### L IPID, RENAL #### [facility] [address] [address] [address] Corine Rajput Triglyceride [Mass/Vol] 189 mg/dL Critically high <=150 [facility] Comment on above: Performed By: #### L IPID, RENAL #### [facility] [address] [address] [address] Corine Rajput VLDL CALC 37.8 mg/dL Normal [facility] Comment on above: Performed By: #### L IPID, RENAL #### [facility] [address] [address] [address] Corine Rajput MICROALB CREAT RATIO RANDOMo n 07-14-2021 mALB 20.4 mg/L Normal <=30.0 [facility] Comment on above: Performed By: #### M CRR #### [facility] [address] [address] [address] Corine Rajput MALB CR RATIO 118.4 mg/g Critically high 0.0-29.9 [facility] Comment on above: Performed By: #### M CRR #### [facility] [address] [place] [address] Dr. Corine Rajput MALB CR RATIO RANGE SEE BELOW Normal [facility] Comment on above: Result Comment: NO M ICROALBUMINURIA 0-29 MG/G CLINICAL MICROALBUMINURIA 30-300 MG/G MACROALBUMINURIA >300 MG/G Performed By: #### M CRR #### [facility] [address] [address] [address] Corine Rajput URINE CREAT 172.30 mg/dL Normal 20.00-300. 00 [facility] Comment on above: Performed By: #### M CRR #### [facility] [address] [address] [address] Corine Rajput RENAL FUNCTION PANELon 07-14 Albumin [Mass/Vol] 3.6 g/dL Normal 3.5-5.0 [facility] Comment on above: Performed By: #### M CRR #### [facility] [address] [address] [address] Corine Rajput Calcium [Mass/Vol] 8.7 mg/dL Normal 8.4-10.2 [facility] Comment on above: Performed By: #### M CRR #### [facility] [address] [address] [address] Corine Rajput Chloride [Moles/Vol] 103 mmol/L Normal 98-107 [facility] Comment on above: Performed By: #### M CRR #### [facility] [address] [address] [address] Corine Rajput CO2 [Moles/Vol] 30.4 mmol/L Critically high 22.0-30.0 [facility] Comment on above: Performed By: #### M CRR #### [facility] [address] [address] [address] Corine Rajput Creatinine [Mass/Vol] 1.17 mg/dL Normal 0.66-1.25 [facility] Comment on above: Performed By: #### M CRR #### [facility] [address] [place] [address] Dr. Corine Rajput EGFR-AF SWAZI >60 Normal >=60 [facility] Comment on above: Performed By: #### M CRR #### [facility] [address] [place] [address] Dr. Corine Rajput EGFR-NON AF SWAZI =60 Normal >=60 [facility] Comment on above: Performed By: #### M CRR #### [facility] [address] [address] [address] Corine Rajput Glucose [Mass/Vol] 184 mg/dL Critically high 74-106 [facility] Comment on above: Performed By: #### M CRR #### [facility] [address] [place] [address] Dr. Corine Rajput Phosphate [Mass/Vol] 3.5 mg/dL Normal 2.5-4.5 [facility] Comment on above: Performed By: #### M CRR #### [facility] [address] [place] [address] Dr. Corine Rajput Potassium [Moles/Vol] 3.9 mmol/L Normal 3.4-5.0 [facility] Comment on above: Performed By: #### M CRR #### [facility] [address] [address] [address] Corine Rajput Sodium [Moles/Vol] 141 mmol/L Normal 137-145 [facility] Comment on above: Performed By: #### M CRR #### [facility] [address] [place] [address] Dr. Corine Rajput Urea nitrogen [Mass/Vol] 20.0 mg/dL Normal 9.0-20.0 [facility] Comment on above: Performed By: #### M CRR #### [facility] [address] [place] [address] Dr. Corine Rajput VITAMIN D 25 OHon 07-14-2021 VIT D 25-OH 30.8 ng/mL Normal [facility] Comment on above: Performed By: #### V ITAD #### [facility] [address] [place] [address] Dr. Corine Rajput VIT D RANGES SEE BELOW Normal [facility] Comment on above: Result Comment: <20 ng/mL Vit D deficient 20 - <30 ng/mL Vit D insufficient 30 - 100 ng/mL Vit D sufficient >100 ng/mL Potential Toxicity Performed By: #### V ITAD #### [facility] [address] [place] [address] Dr. Corine Rajput CBC AUTO DIFFon 06-19-2021 BASO # 0.0 103/ul Normal 0.0-0.1 [facility] Comment on above: Performed By: #### M CRR #### [facility] [address] [place] [address] Dr. Corine Rajput Basophils/100 WBC (Bld) 0.6 % Normal 0.2-2.0 [facility] Comment on above: Performed By: #### M CRR #### [facility] [address] [place] [address] Dr. Corine Rajput EO # 0.4 103/ul Normal 0.0-0.7 [facility] Comment on above: Performed By: #### M CRR #### [facility] [address] [place] [address] Dr. Corine Rajput Eosinophils/100 WBC (Bld) 5.9 % Normal 0.9-7.0 [facility] Comment on above: Performed By: #### M CRR #### [facility] [address] [place] [address] Dr. Corine Rajput Erythrocyte distribution width (RBC) [Ratio] 13.2 % Normal 11.0-15.0 [facility] Comment on above: Performed By: #### M CRR #### [facility] [address] [place] [address] Dr. Corine Rajput Hematocrit (Bld) [Volume fraction] 41.4 % Critically low 42.0-54.0 [facility] Comment on above: Performed By: #### M CRR #### [facility] [address] [place] [address] Dr. Corine Rajput Hemoglobin (Bld) [Mass/Vol] 13.7 g/dL Critically low 14.0-18.0 [facility] Comment on above: Performed By: #### M CRR #### [facility] [address] [place] [address] Dr. Corine Rajput IG # 0.02 10e3/ul Normal 0.00-0.03 [facility] Comment on above: Performed By: #### M CRR #### [facility] [address] [place] [address] Dr. Corine Rajput IG % 0.3 % Normal 0.0-0.5 [facility] Comment on above: Performed By: #### M CRR #### [facility] [address] [place] [address] Dr. Corine Rajput LYMPH # 1.2 103/ul Normal 1.2-3.8 [facility] Comment on above: Performed By: #### M CRR #### [facility] [address] [place] [address] Dr. Corine Rajput Lymphocytes/100 WBC (Bld) 16.5 % Critically low 20.5-60.0 [facility] Comment on above: Performed By: #### M CRR #### [facility] [address] [place] [address] Dr. Croine Rajput MANUAL DIFF REQ NO Normal [facility] Comment on above: Performed By: #### M CRR #### [facility] [address] [place] [address] Dr. Corine Rajput MCH (RBC) [Entitic mass] 30.9 pg Normal 25.9-34.0 [facility] Comment on above: Performed By: #### M CRR #### [facility] [address] [place] [address] Dr. Corine Rajput MCHC (RBC) [Mass/Vol] 33.1 g/dL Normal 29.9-35.2 [facility] Comment on above: Performed By: #### M CRR #### [facility] [address] [place] [address] Dr. Corine Rajput MCV (RBC) [Entitic vol] 93.5 fL Normal 80.0-94.0 [facility] Comment on above: Performed By: #### M CRR #### [facility] [address] [place] [address] Dr. Corine Rajput MONO # 0.7 103/ul Normal 0.3-0.8 [facility] Comment on above: Performed By: #### M CRR #### [facility] [address] [place] [address] Dr. Corine Rajput Monocytes/100 WBC (Bld) 10.0 % Normal 1.7-12.0 [facility] Comment on above: Performed By: #### M CRR #### [facility] [address] [place] [address] Dr. Corine Rajput NEUT # 4.7 103/ul Normal 1.4-6.5 [facility] Comment on above: Performed By: #### M CRR #### [facility] [address] [place] [address] Dr. Corine Rajput Neutrophils/100 WBC (Bld) 66.7 % Normal 43.0-75.0 [facility] Comment on above: Performed By: #### M CRR #### [facility] [address] [place] [address] Dr. Corine Rajput Platelet mean volume (Bld) [Entitic vol] 9.1 fL Critically low 9.5-13.5 [facility] Comment on above: Performed By: #### M CRR #### [facility] [address] [address] [address] Corine Rajput PLT 182 103/ul Normal 150-450 [facility] Comment on above: Performed By: #### M CRR #### [facility] [address] [address] [address] Corine Rajput RBC 4.43 106/ul Critically low 4.70-6.[address] [facility] Comment on above: Performed By: #### M CRR #### [facility] [address] [address] [address] Corine Rajput WBC 7.1 103/ul Normal 4.0-11.0 [facility] Comment on above: Performed By: #### M CRR #### [facility] [address] [address] [address] Corine Rajput CRPon 06-19-2021 CRP [Mass/Vol] mg/L Normal <=1.[address] [facility] Comment on above: Performed By: #### M CRR #### [facility] [address] [place] [address] Dr. Corine Rajput LACTATE/LACTIC ACIDon 2020 Lactate [Moles/Vol] 1.5 mmol/L Normal 0.7-2.0 [facility] Comment on above: Performed By: #### L ACT #### [facility] [address] [place] [address] Dr. Corine Rajput PROF 14(COMP METB)on 021 Albumin [Mass/Vol] 3.7 g/dL Normal 3.5-5.0 [facility] Comment on above: Performed By: #### M CRR #### [facility] [address] [address] [address] Corine Rajput Albumin/Globulin [Mass ratio] 0.9 {ratio} Normal [facility] Comment on above: Performed By: #### M CRR #### [facility] [address] [address] [address] Corine Rajput ALP [Catalytic activity/Vol] 42 U/L Normal 38-126 [facility] Comment on above: Performed By: #### M CRR #### [facility] [address] [address] [address] Corine Rajput ALT [Catalytic activity/Vol] 23 U/L Normal 21-72 [facility] Comment on above: Performed By: #### M CRR #### [facility] [address] [address] [address] Corine Rajput Anion gap [Moles/Vol] 14.1 mmol/L Normal [facility] Comment on above: Performed By: #### M CRR #### [facility] [address] [address] [address] Corine Rajput AST [Catalytic activity/Vol] 20 U/L Normal 17-59 [facility] Comment on above: Performed By: #### M CRR #### [facility] [address] [place] [address] Dr. Corine Rajput Bilirubin [Mass/Vol] 0.5 mg/dL Normal 0.2-1.3 [facility] Comment on above: Performed By: #### M CRR #### [facility] [address] [place] [address] Dr. Corine Rajput Calcium [Mass/Vol] 8.9 mg/dL Normal 8.4-10.2 [facility] Comment on above: Performed By: #### M CRR #### [facility] [address] [place] [address] Dr. Corine Rajput Chloride [Moles/Vol] 102 mmol/L Normal 98-107 [facility] Comment on above: Performed By: #### M CRR #### [facility] [address] [address] [address] Corine Rajput CO2 [Moles/Vol] 26.2 mmol/L Normal 22.0-30.0 [facility] Comment on above: Performed By: #### M CRR #### [facility] [address] [place] [address] Dr. Corine Rajput Creatinine [Mass/Vol] 1.19 mg/dL Normal 0.66-1.25 [facility] Comment on above: Performed By: #### M CRR #### [facility] [address] [address] [address] Corine Rajput EGFR-AF SWAZI >60 Normal >=60 [facility] Comment on above: Performed By: #### M CRR #### [facility] [address] [address] [address] Corine Rajput EGFR-NON AF SWAZI 59 mL/min/1.73m2 Critically low >=60 [facility] Comment on above: Performed By: #### M CRR #### [facility] [address] [address] [address] Corine Rajput Globulin (S) [Mass/Vol] 3.9 g/dL Normal [facility] Comment on above: Performed By: #### M CRR #### [facility] [address] [address] [address] Corine Rajput Glucose [Mass/Vol] 182 mg/dL Critically high 74-106 [facility] Comment on above: Performed By: #### M CRR #### [facility] [address] [address] [address] Corine Rajput Potassium [Moles/Vol] 4.3 mmol/L Normal 3.4-5.0 [facility] Comment on above: Performed By: #### M CRR #### [facility] [address] [address] [address] Corine Rajput Protein [Mass/Vol] 7.6 g/dL Normal 6.1-8.2 [facility] Comment on above: Performed By: #### M CRR #### [facility] [address] [address] [address] Corine Rajput Sodium [Moles/Vol] 138 mmol/L Normal 137-145 [facility] Comment on above: Performed By: #### M CRR #### [facility] [address] [address] [address] Corine Rajput Urea nitrogen [Mass/Vol] 22.0 mg/dL Critically high 9.0-20.0 [facility] Comment on above: Performed By: #### M CRR #### [facility] [address] [place], [place] [address] Dr. Corine Rajput Urea nitrogen/Creatinine [Mass ratio] 18.5 mg/mg Normal [facility] Comment on above: Performed By: #### M CRR #### [facility] [address] [place], [place] [address] Dr. Corine Rajput SED RATE WESTERGRENon 2020 SED RATE 33 mm/hr Critically high <=20 [facility] Comment on above: Performed By: #### S EDR #### [facility] [address] [place], [place] [address] Dr. Corine Rajput IntraOperative Documentson 1 IntraOperative Documents [id number]:[address] [facility] Coding Summary.on 06-06-2020 Coding Summary. 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 However, the narrative phrase printed from the coding software may appear abbreviated, or result in slightly different terminology. Revised Coded By: Luz Burnham Revised Date Saved: 06/02/2020 02:[address] [facility] Main OR Intraoperative Recor don 06-06-2020 Main OR Intraoperative Record IntraOp Document Type FT Summary Primary Physician: Ronal Busby DO Finalized Date/Time: 06/06/20 09:45:39 Pt. Name: JOSE JUAN ALVARES /Sex: 1940 Male Med Rec #: [id number] Physician: Brantbirdie Ronal DICKSON Financial #: [id number] Pt. Type: A Room/Bed: [place] [address] Admit/Disch: 05/29/20 06:26:37 - 05/29/20 09:35:00 Institution: Case Times FT Entry 1 Patient Times In Room 05/29/20 08:25:00 Out Room 05/29/20 08:47:00 Procedure Times Start 05/29/20 08:30:00 Stop 05/29/20 08:46:00 Anesthesia Times Last Modified By: Cierra MANRIQUE, Christopher Negro 05/29/20 08:47:34 General Comments: 06/06/2020 Chart opened to review and send charges. Renee Guzman CST. Case Attendance FT Entry 1 Entry 2 Entry 3 Case Attendee Ronal Busby DO RN, Christopher Norton RN, Ya Kaur Role Performed Surgeon - Primary Night Manager - Primary Night Manager - Primary Time In 05/29/20 08:25:00 05/29/20 08:25:00 05/29/20 08:25:00 Time Out 05/29/20 08:47:00 05/29/20 08:47:00 05/29/20 08:47:00 Procedure CATARACT EXTRACTION W/ CATARACT EXTRACTION W/ CATARACT EXTRACTION W/ INTRAOCULAR LENS(Right) INTRAOCULAR LENS(Right) INTRAOCULAR LENS(Right) Comments Last Modified By: Cierra MANRIQUE, Christopher Norton RN, Christopher Norton RN, Christopher Negro 05/29/20 08:47:35 05/29/20 08:47:35 05/29/20 08:47:35 Entry 4 Entry 5 Entry 6 Case Attendee Lina Mejia STERILE INSTRUMENT TECHNICIAN, Lynn Mendoza Role Performed Night Manager - Primary Scrub - Primary Scrub - Primary Time In 05/29/20 08:25:00 05/29/20 08:25:00 05/29/20 08:25:00 Time Out 05/29/20 08:47:00 05/29/20 08:47:00 05/29/20 08:47:00 Procedure CATARACT EXTRACTION W/ CATARACT EXTRACTION W/ CATARACT EXTRACTION W/ INTRAOCULAR LENS(Right) INTRAOCULAR LENS(Right) INTRAOCULAR LENS(Right) Comments IN ORIENTATION IN ORIENTATION Last Modified By: Cierra MANRIQUE, Christopher Norton RN, Christopher Torre RN 05/29/20 08:47:35 05/29/20 08:47:35 05/29/20 08:47:35 Perioperative Protocols FT Pre-Care Text: Implements protective measures prior to operative or invasive procedure, confirms identity before the operative or invasive procedure, verifies operative procedure, surgical site, and laterality Entry 1 Procedure(s) CATARACT EXTRACTION W/ Patient Identity Birthday, ID Band INTRAOCULAR LENS(Right) Verified (select at Check, Patient least 2): Participation Consents / H and P HandP, Surgery/Procedure Operative Site Present Verified Consent Marking Verified Surgical Site Yes Laterality Verified Yes Verified Procedure Verified Yes Correct Patient Yes Position Verified Availability Equipment, Implant, Prep Dry n/a Verified (If Medication Applicable) PreOp Antibiotic No Time Out Ronal Busby DO, Given Participants Cierra MANRIQUE, Errol Olmos RN, Roberto Powell Tamara A, [place] ELIZONDO, Pollo Aguila Rachel L Time Out Complete 05/29/20 08:29:00 Outcomes Met? Yes Last Modified By: Christopher Norton RN 05/29/20 08:32:26 Post-Care Text: The patient is free from signs and symptoms of injury caused by extraneous objects Allergy Information FT Pre-Care Text: Verifies allergies Entry 1 Allergies Reviewed? Yes Allergies Reviewed Self/Patient With Outcomes Met? Yes Last Modified By: Christopher Norton RN 05/29/20 08:16:18 Post-Care Text: The patient received appropriate medication(s) safely administered during the perioperative period Surgical Procedures FT Entry 1 Procedure Description Procedure CATARACT EXTRACTION W/ Modifiers Right INTRAOCULAR LENS IMPLANTATION Surgeon Description COMPLEX CATARACT EXTRACTION WITH INTRAOCULAR LENS IMPLANTATION- RIGHT EYE Primary Procedure Yes Primary Surgeon Ronal Busby DO Start 05/29/20 08:30:00 Stop 05/29/20 08:46:00 Anesthesia Type Local Surgical Service Ophthalmology Wound Class 1 - Clean Last Modified By: Christopher Norton RN 05/29/20 09:37:38 General Case Data FT Pre-Care Text: Classifies surgical wound, implements aseptic technique, initiates traffic control Entry 1 Case Information OR OR 3 FT Case Level Level 2 Wound Class 1 - Clean Specialty Ophthalmology Preop Diagnosis CATARACT RIGHT EYE Postop Same As Preop Yes Postop Diagnosis CATARACT RIGHT EYE Outcomes Met? Yes Last Modified By: Christopher Norton RN 05/29/20 08:14:13 Post-Care Text: The patient is free from signs and symptoms of infection Skin Assessment (Pre Procedure) FT Pre-Care Text: Implements protective measures to prevent skin/ tissue injury due to thermal or mechanical sources Evaluates for signs and symptoms of physical injury to skin and tissue Entry 1 Skin Integrity Intact, [place], Warm, and Skin Abnormality No Dry Outcomes Met? Yes Last Modified By: Christopher Norton RN 05/29/20 08:14:22 Post-Care Text: The patient is free from signs and symptoms of injury caused by extraneous objects Patient Positioning FT Pre-Care Text: Identifies physical alterations that require additional precautions for procedure-specific positioning, verifies presence of prosthetics or corrective devices, positions the patient, evaluates the patient for signs and symptoms of injury as a result of positioning Entry 1 Procedure CATARACT EXTRACTION W/ Additional folded towel under head INTRAOCULAR LENS(Right) Information Body Position Supine Feet Uncrossed? Yes Left Arm Position Resting at Side Right Arm Position Resting at Side Left Leg Position Extended Right Leg Position Extended Positioning Device Pillow Large Under Knees Press Points Checked Yes By Christopher Norton RN Outcomes Met? Yes Last Modified By: Christopher Norton RN 05/29/20 08:14:31 Post-Care Text: The patient is free from signs and symptoms of injury related to positioning Patient Care Devices FT Pre-Care Text: Implements protective measures to prevent skin/ tissue injury due to thermal or mechanical sources Entry 1 Entry 2 Entry 3 Equipment Type MICROSCOPE EYE[F] MONITOR CHARGE SURGERY PHACO UNIT[F] [F] Equipment Number Equipment Setting Outcomes Met? Yes Yes Yes Last Modified By: Christopher Norton RN, RN, Andrea L Krupp RN, Andrea L 05/29/20 08:14:48 05/29/20 08:14:48 05/29/20 08:14:48 Post-Care Text: The patient is free from signs and symptoms of injury caused by extraneous objects Transport To OR FT Pre-Care Text: Transports according to individual needs. Evaluates for signs and symptoms of skin and tissue injury as a result of transfer or transport Entry 1 Via Cart By Christopher Norton RN Safety Precautions Side Rails Up Outcomes Met? Yes Last Modified By: Christopher Norton RN 05/29/20 08:14:57 Post-Care Text: The patient is free from signs and symptoms of injury related to transfer/transport Counts Verification FT Pre-Care Text: Performs required counts Entry 1 Entry 2 Procedure(s) CATARACT EXTRACTION W/ CATARACT EXTRACTION W/ INTRAOCULAR LENS(Right) INTRAOCULAR LENS(Right) Type Initial Final Items Instruments Instruments Status Correct Correct Time By Salina ELIZONDO, Jillian Downing STERILE INSTRUMENT TECHNICIAN, Jillian Phillips Outcomes Met? Yes Yes Last Modified By: Christopher Norton RN, RN, Andrea L 05/29/20 08:30:42 05/29/20 08:30:42 Post-Care Text: The patient is free from signs and symptoms of injury caused by extraneous objects Skin Prep FT Pre-Care Text: Performs skin preparations Entry 1 Procedure CATARACT EXTRACTION W/ Prep Area operative site- RIGHT INTRAOCULAR LENS(Right) EYE Prep Agents Saline Rinse, Betadine Scrub and Solution Hair Removal Methods Not Indicated By Ya Norton RN Outcomes Met? Yes Last Modified By: Christopher Norton RN 05/29/20 08:16:09 Post-Care Text: The patient is free from signs and symptoms of infection Departure From OR FT Pre-Care Text: Transports according to individual needs. Evaluates for signs and symptoms of skin and tissue injury as a result of transfer or transport. Entry 1 Via Cart Safety Precautions Side Rails Up PostOp Destination Pre Surgery/ASU Transported By Christopher Norton RN Patient Status Stable Skin. Condition Intact, [place], Warm, and Dry Airway Maintenance Oxygen in Use? No Airway Device N/A Outcomes Met? Yes Last Modified By: Christopher Norton RN 05/29/20 08:31:59 Post-Care Text: The patient is free from signs and symptoms of injury related to transfer/transport General Comments: OR TRANSPORTER TO TRANSPORT PATIENT BACK TO ASU UNIT AFTER PROCEDURE Dressing/Packing FT Pre-Care Text: Administers care to wound sites Entry 1 Type Dressing Site and Details RIGHT EYE- PLASTIC EYE SHIELD AND PAPER TAPE Outcomes Met? Yes Last Modified By: Christopher Norton RN 05/29/20 08:32:14 Post-Care Text: The patient is free from signs and symptoms of infection Medication Administration FT Pre-Care Text: Verifies allergies, administers prescribed medications and solutions, administers prescribed antibiotic therapy and immunizing agents as ordered, evaluates response to medications Administers prescribed medications and solutions Entry 1 Route of Admin Intraocular Expiration Date Yes Verified Outcomes Met? Yes Last Modified By: Christopher Norton RN 05/29/20 08:15:08 Post-Care Text: The patient received appropriate medication(s) safely administered during the perioperative period For [facility] please see scanned medication reconcilliation form for medications used at the field during the procedure. Implant Log FT Pre-Care Text: Records devices implanted during the operative or invasive procedure Entry 1 Procedure CATARACT EXTRACTION W/ Implant/Explant Implant INTRAOCULAR LENS(Right) Implant Identification FT Description LARA [id number] 12.50MM Serial Number [id number] 21.50 [[id number]][F] Lot Number [id number] Bilingual Operator FT-[employer]CH [employer]OM[employer] Catalog ?# [id number] [F] Size 21.5 Expiration Date 03/31/23 Unique Device [id number] Identifier (OLIVER) Human Readable {01}[id number] Machine Readable [id number] Barcode Barcode Usage Data FT Implant Site Eye R Quantity 1 Implanted By Ronal Busby DO Biological Implants MR Classification Unknown Outcomes Met? Yes Last Modified By: Christopher Norton RN 05/29/20 08:34:27 Post-Care Text: The patient is free from signs and symptoms of injury caused by extraneous objects Case Comments Finalized By: Henrique Guzman CST Document Signatures Signed By: Christopher Norton RN 05/29/20 08:47 Christopher Norton RN 05/29/20 09:37 Henrique Guzman CST 06/06/20 09:45 [facility] Discharge Instructionson Discharge Instructions [id number]#1.00CD:127 [facility] IntraOperative Documentson 0 05-30-2020 IntraOperative Documents [id number]#1.00CD:[address] [facility] Operative Reporton 0 Operative Report Date of Surgery: SURGEON: Ronal Busby D.O. PREOPERATIVE DIAGNOSES: 1. Nuclear sclerotic cataract, right eye 2. Intraoperative floppy iris syndrome, right eye POSTOPERATIVE DIAGNOSES: 1. Nuclear sclerotic cataract, right eye 2. Intraoperative floppy iris syndrome, right eye OPERATION: Complex cataract extraction with intraocular lens placement for the right eye ANESTHESIA: Topical ESTIMATED BLOOD LOSS: Zero COMPLICATIONS: None PROCEDURE: The patient was brought to the Operating Room in supine position. After proper identification, the right eye was prepped and draped in a sterile ophthalmic fashion. Several drops of tetracaine were placed into the right eye and a paracentesis was created at the 11 oclock position. Approximately 1 cc of unpreserved Xylocaine was injected into the anterior chamber followed by Amvisc Plus. Using a 2.6 mm keratome blade, a clear corneal incision was created at the 9 oclock limbus. Healon 5 was then injected beneath the iris plane at the 3, 6 and 12 o'clock locations. A Malyugin ring measuring 6.25 mm was then inserted into the anterior chamber engaging the islets to the iris at the 3, 6 and 12 o'clock locations. The trailing islet was engaged with the iris at the 9 o'clock location with the assistance of a Kuglen hook. Healon 5 was then injected over the iris/Malyugin ring complex to push it posteriorly and stabilize it. A cystotome was then fashioned out of a 25 gauge needle and a curvilinear capsulorrhexis was begun and continued for 360 degrees with Utrata forceps. Balanced salt solution on a 26 gauge cannula was injected beneath the anterior capsule to hydrodissect as well as hydrodelineate the lens. After ensuring mobility, phacoemulsification was performed in a conquer and divide type fashion. After all nuclear material had been removed from the eye, IA was introduced and all residual cortical material was cleaned up. Additional Amvisc Plus was injected into the posterior bag and a lens Model MX60 21.5 diopters was injected and dialed into position. After ensuring centration, the second handpiece instrument was utilized to disengage the islets of the Malyugin ring at the 3 and 9 o'clock locations. The Malyugin ring napper tender was then used to remove the ring from the eye without difficulty. IA was reintroduced into the anterior chamber and all residual Amvisc Plus and Healon 5 were removed from the eye. Balanced salt solution on a 30 gauge cannula was injected into the stroma of both the clear corneal incision as well as the paracentesis to hydrate the wounds. Additional balanced salt solution was injected into the anterior chamber to pressurize the eye to approximately 20-22 mmHg by finger tension. 0.3 cc of antibiotic was injected into the anterior chamber to wash it out and maintain a pressure of 20 mmHg by finger tension. Weck-Zena sponges were used to check the wounds to be watertight. One drop of Iopidine, one drop of prednisolone acetate, one drop of Ocuflox were placed into the eye and a shield was placed overtop. The patient was sent to the Postoperative Area in satisfactory condition to follow up the following day for postoperative care. Ronal Busby D.O. gls Dictated: 05/29/2020 #[id number] Typed: 05/29/2020 #[id number] cc: Ronal Busby D.O. [facility] Comment on above: Result Comment: Elec tronically Signed By: Ronal Busby DO\.br\Date and Time Signed: 05/30/20 08:44 EDT Preoperative Documentson Preoperative Documents [id number]#[id number]:127 [facility] Consent for Procedure/Surger yon 05-29-2020 Consent for Procedure/Surgery [id number]#1.00CD:127 [facility] History and Physicalon 05-29 History and Physical HandP reviewed. No changes since dictated. HOSPITAL REGULATIONS: ALL Positive Important Negative Findings Shall Be Recorded DATE ADMITTED: 05/29/2020 The patient is a 79 year old white male who describes a gradual decline in his vision over the last year. He notes having difficulty with road signs at a distance. He also states having difficulty watching television, he states having difficulty at nighttime while driving because of headlights creating glare. PAST OCULAR HISTORY, PAST MEDICAL HISTORY, SOCIAL HISTORY, MEDICATIONS, ALLERGIES TO MEDICATIONS, REVIEW OF SYSTEMS AND PHYSICAL EXAMINATION: Unchanged from previously dictated. ASSESSMENT AND PLAN: 1. Visually significant cataract, right eye. After risks, benefits, alternatives as well as expectations were delivered to the patient he elected to go forward with cataract removal. He understands those risks include but not limited to infection, bleeding, loss of vision or loss of the eye itself. Secondly, he understands that postoperatively he will likely require spectacle correction for best visual acuity. Finally, complete ophthalmic examination was performed and there is not determined any other source of vision decline other than that of the cataract. 2. COVID-19: The patient was briefed on the condition of COVID-19 and the increased risk of its contraction in the hospital setting. The patient understands that these risks occur and he is willing to assume these risks given the severity of diminishment in activities of daily living. Ronal Busby D.O. lkr Dictated: 05/28/2020 #[id number] Typed 05/29/2020 #[id number] cc: Ronal Busby D.O. [facility] Comment on above: Result Comment: Elec tronically Signed By: Ronal Busby DO\.br\Date and Time Signed: 05/29/20 08:48 EDT Inpatient Patient Summaryon 05-29-2020 Inpatient Patient Summary [address] [address] [facility] Clinical Discharge Instructions PERSON INFORMATION Name: JOSE JUAN ALVARES [facility]#:[id number] PHYSICIANS Admitting Physician: Ronal Busby DO Attending Physician: Ronal Busby DO PCP: ANTONIO GERONIMO JR, DO Discharge Diagnosis: Cataract; Floppy iris syndrome Comment: PATIENT EDUCATION INFORMATION Instructions: Medication Leaflets: Follow up: With: Address: When: JOLIE DEUTSCH [address] [place] [id number] ( [phone] [facility] (1) Within 1 to 2 days MEDICATION LIST Medications to Continue with No Changes Other Medications insulin aspart (NovoLog) varies Subcutaneous before meals. insulin glargine (Lantus) 30 Units Subcutaneous every day. lisinopril (lisinopril 10 mg Tab) 1 Tablets By Mouth every day. metformin (metformin 500 mg oral tablet) 2 Tablets By Mouth 2 times a day. methylphenidate (Ritalin 10 mg oral tablet) 1 Tablets By Mouth 3 times a day., Keep me awake pioglitazone (pioglitazone 15 mg Tab) 1 Tablets By Mouth every day. pravastatin (pravastatin 40 mg Tab) 1 Tablets By Mouth every day. tamsulosin (tamsulosin 0.4 mg Cap) 1 Capsules By Mouth 2 times a day. Comment: [facility] Main OR PACU II [facility]ordon Main OR PACU II Record PACU Phase II Document Type FT Summary Primary Physician: Ronal Busby DO Finalized Date/Time: 05/29/20 10:23:39 Pt. Name: JOSE JUAN ALVARES/Sex: 1940 Male Med Rec #: [id number] Physician: Ronal Busby DO Financial #: [id number] Pt. Type: A Room/Bed: [place] [address] Admit/Disch: 05/29/20 06:26:37 - Institution: Case Times PACU II FT Pre-Care Text: Identifies barriers to communication and implements measures to provide psychological support and determines knowledge level Develops individualized plan of care, and ensures continuity of care Maintains patient's dignity and privacy, and maintains patient confidentiality Identifies and reports philosophical, cultural, and spiritual beliefs and values Identifies individual values and wishes concerning care administers prescribed antibiotic therapy and immunizing agents as ordered, Evaluates postoperative tissue perfusion Implements thermoregulation measures, and monitors body temperature Evaluates postoperative respiratory status Evaluates postoperative cardiac status Evaluates postoperative neurological status Assesses pain control, collaborated in initiating patient-controlled analgesia and implements alternative methods of pain control Verifies allergies, administers prescribed medications and solutions, evaluates response to medications Entry 1 In PACU II 05/29/20 08:50:00 Discharge from PACU 05/29/20 09:35:00 II Outcomes Met? Yes Last Modified By: Rivka Almaraz LPN 05/29/20 10:23:08 Post-Care Text: The patient demonstrates knowledge of the expected response to the operative or invasive procedure The patient's care is consistent with the individualized perioperative plan of care The patient's right to privacy is maintained The patient's value system, lifestyle, ethnicity, and culture are considered, respected, and incorporated into the perioperative plan of care The patient participates in decisions affecting his or her perioperative plan of care. The patient is free from signs and symptoms of infection The patient has wound/tissue perfusion consistent with or improved from baseline levels established preoperatively The patient is at or returning to normothermia at the conclusion of the immediate postoperative period The patient's respiratory function is consistent with or improved from baseline levels established preoperatively The patient's cardiovascular status is consistent with or improved from baseline levels established preoperatively The patient's neurological status is consistent with or improved from baseline levels established preoperatively The patient demonstrates and/or reports adequate pain control throughout the perioperative period The patient received appropriate medication(s), safely administered during the perioperative period Finalized By: Rivka Almaraz LPN Document Signatures Signed By: Rivka Almaraz LPN 05/29/20 10:[address] [facility] Main OR Preoperative Recordo n 05-29-2020 Main OR Preoperative Record PreOp Document Type FT Summary Primary Physician: Ronal Busby DO Finalized Date/Time: 05/29/20 08:29:36 Pt. Name: SUMANTHMIKIJOSE JUAN/Sex: 1940 Male Med Rec #: [id number] Physician: Ronal Busby DO Financial #: [id number] Pt. Type: A Room/Bed: [place] [address] Admit/Disch: 05/29/20 06:26:37 - Institution: Case Times PreOp FT Pre-Care Text: Verifies consent for planned procedure, identifies individual values and wishes concerning care, includes family members in perioperative teaching Entry 1 Patient Times. In Pre Surgery 05/29/20 06:30:00 Out Pre Surgery 05/29/20 08:15:00 Outcomes Met? Yes Last Modified By: Christopher Norton RN 05/29/20 08:29:32 Post-Care Text: The patient participates in decisions affecting his or her perioperative plan of care Finalized By: Christopher Norton RN Document Signatures Signed By: Christopher Norton RN 05/29/20 08:[address] [facility] Main OR Preoperative Record Holding Area Document Type FT Summary Primary Physician: Ronal Busby DO Finalized Date/Time: 05/29/20 07:01:51 Pt. Name: JOSE JUAN ALVARES /Sex: 1940 Male Med Rec #: [id number] Physician: Ronal Busby DO Financial #: [id number] Pt. Type: A Room/Bed: [place] [address] Admit/Disch: 05/29/20 06:26:37 - Institution: Case Times Holding FT Pre-Care Text: Verifies consent for planned procedure, identifies individual values and wishes concerning care, includes family members in perioperative teaching Secures patient's records' belongings, and valuables, maintains patient's dignity and privacy, and maintains patient confidentiality Entry 1 In Holding 05/29/20 06:30:00 Outcomes Met? Yes Last Modified By: Rivka Almaraz LPN 05/29/20 06:59:16 Post-Care Text: The patient participates in decisions affecting his or her perioperative plan of care The patient's right to privacy is maintained Surgery Checklist FT Entry 1 Patient Birthday, ID Band Procedure Surgical Consent, With Identification: Check, Patient Verification: Patient Participation NPO after Midnight: No Date/Time: 05/29/20 04:00:00 Personal Items: Cataract Lens Implant, Personal Items watch removed, upper Dentures, Jewelry Comment: and lower full in, bilat hearing aids removed, lens implant left eye Limitations: none Complaints of Pain: No Operative Site Yes Marked By: Derrick BUCHANAN Marking: Location: black dot marked above pts right eye Does Patient Smoke No Patient states Yes Comment - Adult sister in law Tierney postop adult Supervision supervision available Case Cancelled in No Holding Area see comments below for reason Last Modified By: Rivka Almaraz LPN 05/29/20 07:01:39 Finalized By: Rivka Almaraz LPN Document Signatures Signed By: Rivka Almaraz LPN 05/29/20 07:01 Rivka Almaraz LPN 05/29/20 07:01 [facility] Outpatient Surgery Discharge Instructionon 05-29-2020 Outpatient Surgery Discharge Instruction [place] [id number] Patient Discharge Instructions PERSON INFORMATION Name: JOSE JUAN ALVARES Date of : 1940 Current Date: 05/29/2020 07:17:48 PHYSICIANS Admitting Physician: Ronal Busby DO Discharge Diagnosis: Cataract; Floppy iris syndrome JOSE JUAN ALVARES has been given the following list of follow-up instructions, prescriptions, and patient education materials: PATIENT FOLLOW-UP INFORMATION Diet: Regular Call Your Doctor For: Severe pain at the operative site Wound Care Instructions: Remove dressing as instructed IF UNABLE TO CONTACT YOUR PHYSICIAN AND YOU FEEL IT IS AN EMERGENCY, GO TO THE NEAREST EMERGENCY ROOM OR CALL 911 I, JOSE JUAN ALVARES, have received the attached patient education materials/instructions and have verbalized understanding: May we do a follow up call? Yes No I was present when discharge instructions were given ___ Patient Signature Date Clinican/Nurse Signature Date Follow up: With: Address: When: JOLIE DEUTSCH [address] [place] [address] ( [phone] [facility] (7) Within 1 to 2 days Pharmacy Information: Thank you for choosing [facility] HERE ARE THE MEDICATION CHANGES THAT OCCURRED DURING YOUR HOSPITAL STAY Medications to Continue with No Changes Other Medications insulin aspart (NovoLog) varies Subcutaneous before meals. insulin glargine (Lantus) 30 Units Subcutaneous every day. lisinopril (lisinopril 10 mg Tab) 1 Tablets By Mouth every day. metformin (metformin 500 mg oral tablet) 2 Tablets By Mouth 2 times a day. methylphenidate (Ritalin 10 mg oral tablet) 1 Tablets By Mouth 3 times a day., Keep me awake pioglitazone (pioglitazone 15 mg Tab) 1 Tablets By Mouth every day. pravastatin (pravastatin 40 mg Tab) 1 Tablets By Mouth every day. tamsulosin (tamsulosin 0.4 mg Cap) 1 Capsules By Mouth 2 times a day. PATIENT EDUCATION INFORMATION Instructions: [facility] Patient Education - Texton 0 05-29-2020 Patient Education - Text [facility] Progress Note-Physicianon Progress Note-Physician Patient: JOSE JUAN ALVARES Age: 79 years Sex: Male : 1940 Associated Diagnoses: None Author: Ronal Busby DO Postoperative Information Date/ Time: 05/29/2020 08:46:00 Preoperative Diagnosis: Senile Cataract - OD , IFIS - OD . Postoperative Diagnosis: same . Procedure: Complex Cataract Extraction with IOL placement - OD. Anesthesia Method: Local. Performed by: Ronal Busby DO. Specimens Removed: none . Estimated Blood Loss: 0 ml. Complications: None. [facility] Comment on above: Result Comment: Elec tronically Signed By: Ronal Busby DO\.br\Date and Time Signed: 05/29/20 08:47 EDT Coding Summary.on 05-19-2020 Coding Summary. 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 However, the narrative phrase printed from the coding software may appear abbreviated, or result in slightly different terminology. Coded By: Luz Burnham Date Saved: 05/19/2020 08:16 am [facility] IntraOperative Documentson 0 05-17-2020 IntraOperative Documents [id number]#1.00CD:[address] [facility] Main OR Intraoperative Recor don 05-17-2020 Main OR Intraoperative Record IntraOp Document Type FT Summary Primary Physician: Ronal Busby DO Finalized Date/Time: 05/17/20 08:23:06 Pt. Name: JOSE JUAN ALVARES/Sex: 1940 Male Med Rec #: [id number] Physician: Ronal Busby DO Financial #: [id number] Pt. 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 Case Attendance FT Entry 1 Entry 2 Entry 3 Case Attendee Ronal Busby DO, RN, Christopher Ro RN, All Mchugh Role Performed Surgeon - Primary Night Manager - Primary Night Manager - Primary Time In 05/15/20 08:51:00 05/15/20 08:51:00 05/15/20 08:51:00 Time Out 05/15/20 09:15:00 05/15/20 09:15:00 05/15/20 09:15:00 Procedure CATARACT EXTRACTION W/ CATARACT EXTRACTION W/ CATARACT EXTRACTION W/ INTRAOCULAR LENS(Left) INTRAOCULAR LENS(Left) INTRAOCULAR LENS(Left) Comments Last Modified By: Cierra RN, Christopher Norton RN, Christopher Norton RN, Christopher Negro 05/15/20 09:17:37 05/15/20 09:17:37 05/15/20 09:17:37 Entry 4 Entry 5 Case Attendee Thomas ELIZONDO, Henrique Downing CST, Jillian Phillips Role Performed Scrub - Primary Staff - Other Time In 05/15/20 08:51:00 05/15/20 08:51:00 Time Out 05/15/20 09:15:00 05/15/20 09:15:00 Procedure CATARACT EXTRACTION W/ CATARACT EXTRACTION W/ INTRAOCULAR LENS(Left) INTRAOCULAR LENS(Left) Comments Last Modified By: Cierra MANRIQUE, Christopher Norton RN, Christopher Negro 05/15/20 09:17:37 05/15/20 09:17:37 Perioperative Protocols FT Pre-Care Text: Implements protective measures prior to operative or invasive procedure, confirms identity before the operative or invasive procedure, verifies operative procedure, surgical site, and laterality Entry 1 Procedure(s) CATARACT EXTRACTION W/ Patient Identity Birthday, ID Band INTRAOCULAR LENS(Left) Verified (select at Check, Patient least 2): Participation Consents / H and P HandP, Surgery/Procedure Operative Site Present Verified Consent Marking Verified Surgical Site Yes Laterality Verified Yes Verified Procedure Verified Yes Correct Patient Yes Position Verified Availability Equipment, Implant, Prep Dry n/a Verified (If Medication Applicable) PreOp Antibiotic No Time Out Ronal Busby DO, Given Participants Cierra MANRIQUE, Jia Olmos RN, Thomas Staples CST, Salina Lopez CST, Jillian Phillips Time Out Complete 05/15/20 08:54:00 Outcomes Met? Yes Last Modified By: Christopher Norton RN 05/15/20 08:57:10 Post-Care Text: The patient is free from signs and symptoms of injury caused by extraneous objects Allergy Information FT Pre-Care Text: Verifies allergies Entry 1 Allergies Reviewed? Yes Allergies Reviewed Self/Patient With Outcomes Met? Yes Last Modified By: Christopher Norton RN 05/15/20 08:41:51 Post-Care Text: The patient received appropriate medication(s) safely administered during the perioperative period Surgical Procedures FT Entry 1 Procedure Description Procedure CATARACT EXTRACTION W/ Modifiers Left INTRAOCULAR LENS IMPLANTATION Surgeon Description LEFT EYE- CATARACT EXTRACTION WITH INTRAOCULAR LENS IMPLANTATION Primary Procedure Yes Primary Surgeon Ronal Busby DO 05/15/20 08:56:00 Stop 05/15/20 09:14:00 Anesthesia Type Local Surgical Service Ophthalmology Wound Class 1 - Clean Last Modified By: Christopher Norton RN 05/15/20 09:17:43 General Case Data FT Pre-Care Text: Classifies surgical wound, implements aseptic technique, initiates traffic control Entry 1 Case Information OR OR 3 FT Case Level Level 2 Wound Class 1 - Clean Specialty Ophthalmology Preop Diagnosis CATARACT LEFT EYE Postop Same As Preop Yes Postop Diagnosis CATARACT LEFT EYE Outcomes Met? Yes Last Modified By: Christopher Norton RN 05/15/20 08:43:30 Post-Care Text: The patient is free from signs and symptoms of infection Skin Assessment (Pre Procedure) FT Pre-Care Text: Implements protective measures to prevent skin/ tissue injury due to thermal or mechanical sources Evaluates for signs and symptoms of physical injury to skin and tissue Entry 1 Skin Integrity Intact, [place], Warm, and Skin Abnormality No Dry Outcomes Met? Yes Last Modified By: Christopher Norton RN 05/15/20 08:43:15 Post-Care Text: The patient is free from signs and symptoms of injury caused by extraneous objects Patient Positioning FT Pre-Care Text: Identifies physical alterations that require additional precautions for procedure-specific positioning, verifies presence of prosthetics or corrective devices, positions the patient, evaluates the patient for signs and symptoms of injury as a result of positioning Entry 1 Procedure CATARACT EXTRACTION W/ Body Position Supine INTRAOCULAR LENS(Left) Feet Uncrossed? Yes Left Arm Position Resting at Side Right Arm Position Resting at Side Left Leg Position Extended Right Leg Position Extended Positioning Device Pillow Large Under Knees Press Points Checked Yes By Christopher Norton RN Outcomes Met? Yes Last Modified By: Christopher Norton RN 05/15/20 09:00:02 Post-Care Text: The patient is free from signs and symptoms of injury related to positioning Patient Care Devices FT Pre-Care Text: Implements protective measures to prevent skin/ tissue injury due to thermal or mechanical sources Entry 1 Entry 2 Entry 3 Equipment Type MICROSCOPE EYE[F] MONITOR CHARGE SURGERY PHACO UNIT[F] [F] Equipment Number Equipment Setting Outcomes Met? Yes Yes Yes Last Modified By: Christopher Norton RN, RN, Christopher Torre RN 05/15/20 08:43:01 05/15/20 08:43:01 05/15/20 08:43:01 Post-Care Text: The patient is free from signs and symptoms of injury caused by extraneous objects Transport To OR FT Pre-Care Text: Transports according to individual needs. Evaluates for signs and symptoms of skin and tissue injury as a result of transfer or transport Entry 1 Via Cart By Christopher Norton RN Safety Precautions Side Rails Up Outcomes Met? Yes Last Modified By: Christopher Norton RN 05/15/20 08:41:57 Post-Care Text: The patient is free from signs and symptoms of injury related to transfer/transport Counts Verification FT Pre-Care Text: Performs required counts Entry 1 Entry 2 Procedure(s) CATARACT EXTRACTION W/ CATARACT EXTRACTION W/ INTRAOCULAR LENS(Left) INTRAOCULAR LENS(Left) Type Initial Final Items Instruments Instruments Status Correct Correct Time By Henrique Guzman CST, CST, Foster M Outcomes Met? Yes Yes Last Modified By: Christopher Norton RN, RN, Andrea L 05/15/20 08:42:39 05/15/20 08:42:39 Post-Care Text: The patient is free from signs and symptoms of injury caused by extraneous objects Skin Prep FT Pre-Care Text: Performs skin preparations Entry 1 Procedure CATARACT EXTRACTION W/ Prep Area LEFT EYE INTRAOCULAR LENS(Left) Prep Agents Betadine Scrub and Solution Hair Removal By All Ro RN Outcomes Met? Yes Last Modified By: Christopher Norton RN 05/15/20 08:57:37 Post-Care Text: The patient is free from signs and symptoms of infection Departure From OR FT Pre-Care Text: Transports according to individual needs. Evaluates for signs and symptoms of skin and tissue injury as a result of transfer or transport. Entry 1 Via Cart Safety Precautions Side Rails Up PostOp Destination Pre Surgery/ASU Transported By Christopher Norton RN Patient Status Stable Skin. Condition Intact, [place], Warm, and Dry Airway Maintenance Oxygen in Use? No Airway Device N/A Outcomes Met? Yes Last Modified By: Christopher Norton RN 05/15/20 08:58:42 Post-Care Text: The patient is free from signs and symptoms of injury related to transfer/transport General Comments: OR TRANSPORTER TO TRANSPORT PATIENT BACK TO [facility]SU AFTER PROCEDURE Dressing/Packing FT Pre-Care Text: Administers care to wound sites Entry 1 Type Dressing Site and Details LEFT EYE- PLASTIC EYE SHIELD AND PAPER TAPE Outcomes Met? Yes Last Modified By: Christopher Norton RN 05/15/20 08:59:28 Post-Care Text: The patient is free from signs and symptoms of infection Medication Administration FT Pre-Care Text: Verifies allergies, administers prescribed medications and solutions, administers prescribed antibiotic therapy and immunizing agents as ordered, evaluates response to medications Administers prescribed medications and solutions Entry 1 Route of Admin Intraocular Expiration Date Yes Verified Outcomes Met? Yes Last Modified By: Christopher Norton RN 05/15/20 08:42:12 Post-Care Text: The patient received appropriate medication(s) safely administered during the perioperative period For [place] please see scanned medication reconcilliation form for medications used at the field during the procedure. Implant Log FT Pre-Care Text: Records devices implanted during the operative or invasive procedure Entry 1 Procedure CATARACT EXTRACTION W/ Implant/Explant Implant INTRAOCULAR LENS(Left) Implant Identification FT Description LARA [id number] 12.50MM Serial Number [id number] 21.50 [[id number]][F] Lot Number [id number] Bilingual Operator FT-BAUSCH AND LOMB Catalog ?# [id number] [F] Size 21.5 Expiration Date 12/29/22 Unique Device [id number] Identifier (OLIVER) Human Readable {01}[id number] Machine Readable [id number] Barcode Barcode Usage Data FT Implant Site Eye L Quantity 1 Implanted By Ronal Busby DO Biological Implants MR Classification Unknown Outcomes Met? Yes Last Modified By: Cierra MANRIQUE Christopher Sruthi 05/15/20 09:01:14 Post-Care Text: The patient is free from signs and symptoms of injury caused by extraneous objects Case Comments Finalized By: Staci Carter CST Document Signatures Signed By: Christopher Norton RN 05/15/20 09:17 Staci Carter CST 05/17/20 08:23 [facility] Consenton 05-16-2020 Consent [id number]#1.00CD:127 [facility] Discharge Instructionson Discharge Instructions [id number]#1.00CD:127 [facility] IntraOperative Documentson 0 05-16-2020 IntraOperative Documents [id number]#1.00CD:127 [facility] IntraOperative Documents [id number]#1.00CD:127 [facility] Operative Reporton 0 Operative Report Date of Surgery: SURGEON: Ronal Busby D.O. PREOPERATIVE DIAGNOSES: 1. Nuclear sclerotic cataract left eye 2. Intraoperative floppy iris syndrome left eye POSTOPERATIVE DIAGNOSES: 1. Nuclear sclerotic cataract left eye 2. Intraoperative floppy iris syndrome left eye OPERATION: Complex cataract extraction with intraocular lens placement to the left eye ANESTHESIA: Topical ESTIMATED BLOOD LOSS: Zero COMPLICATIONS: None PROCEDURE: The patient was brought to the Operating Room in supine position. After proper identification the left eye was prepped and draped in sterile ophthalmic fashion. Several drops of tetracaine were placed into the eye, and a paracentesis was created at the 5 oclock position. Approximately 1 cc of 1% Xylocaine was injected into the anterior chamber followed by Amvisc Plus. Using a 2.6 mm keratome blade, a clear corneal incision was created at the 3 oclock limbus. Healon 5 was then injected under the iris diaphragm at the 9, 6, and 12 o'clock locations. A Malyugin ring measuring 6.25 mm was then inserted engaging the iris in the Malyugin ring with the iris at the 9, 6, and 12 o'clock locations. The trailing eyelet was engaged with the iris with the assistance of a Kuglen hook. Healon 5 was then injected over the iris/Malyugin ring complex to push it posteriorly and stabilize it. A cystotome was then fashioned out of a 25-gauge needle, and a curvilinear capsulorrhexis was begun and continued for 360 degrees with Utrata forceps. Balanced salt solution in a 26-gauge cannula was injected beneath the anterior capsule to hydrodissect as well as hydrodelineate the lens. After ensuring mobility, phacoemulsification was performed in a cdsdygi-wyw-uywxoe type fashion. After all nuclear material had been removed from the eye, IA was introduced, and all of the cortical material was cleaned up. Additional Amvisc Plus was injected into the posterior bag, and lens Model MX60 21.5 diopter was injected and dialed into position. After ensuring centration, a second handpiece instrument was utilized to disengage the eyelet from the Malyugin ring at the 3 and 9 o'clock locations. This was then removed from the eye without difficulty with its napper tender. The IA was reintroduced into the anterior chamber, and all residual Amvisc Plus and Healon 5 were removed from the eye. Balanced salt solution in a 30-gauge cannula was injected into the stroma of both the clear corneal incision as well as the paracentesis to hydrate the wounds. Additional balanced salt solution was injected into the anterior chamber to pressurize the eye to approximately 20-22 mmHg by finger tension. Antibiotic 0.3 cc was used to wash out the anterior chamber, maintaining the pressure at 20-22 mmHg by finger tension. Weck-Zena sponges were used to check the wounds to be watertight. One drop of Iopidine, one drop of prednisolone acetate, and one drop of Ocuflox were placed into the eye, and a shield was placed overtop. The patient was sent to the Postoperative Area in satisfactory condition to follow up the following day for postoperative care. Ronal Busby D.O. [facility] Dictated: 05/15/2020 #[id number] Typed: 05/15/2020 #[id number] cc: Ronal Busby D.O. [facility] Comment on above: Result Comment: Elec tronically Signed By: Ronal Busby DO\.br\Date and Time Signed: 05/16/20 07:55 EDT Preoperative Documentson Preoperative Documents [id number]#[id number]:[address] [facility] Consent for Treatmenton 05-02 Consent for Treatment [id number]#1.00CD:127 [facility] History and Physicalon 05-15 History and Physical No changes to H and P. HOSPITAL REGULATIONS: ALL Positive Important Negative Findings Shall Be Recorded DATE ADMITTED: 05/15/2020 HISTORY: The patient is a 80-year-old white male with complaints of decline in vision out of his left eye. Gradually over the last year he believes that his vision has slowly worsened. He is having difficulty reading. Tasks such as newspapers and journals, he is having more difficulty seeing. Also, he states having difficulty seeing the computer screen. Finally, he states having difficulty at nighttime because of oncoming headlights creating glare and making it hard to drive. PAST OCULAR HISTORY: Cataract bilaterally. PAST MEDICAL HISTORY: 1. Knee surgery. 2. Neck fusion. 3. Surgery on his left ankle due to a fracture. 4. Insulin-dependent diabetes mellitus. 5. Narcolepsy. SOCIAL HISTORY: He drinks occasionally. He denies tobacco or recreational drug abuse. SYSTEMIC MEDICATIONS: 1. Ritalin. 2. Levemir. ALLERGIES: Denies. REVIEW OF SYSTEMS: No pertinent positives. PHYSICAL EXAMINATION: VITAL SIGNS: Blood pressure measured at 143/80 with a respiration rate of 12 and pulse of 71. GENERAL: He is awake, alert and oriented x3, well developed, well nourished, no acute distress. HEART: Regular rate and rhythm. LUNGS: Clear bilaterally. ABDOMEN: Soft, nontender, nondistended. EXTREMITIES: No pitting edema. EYES: Ophthalmic exam revealed a visual acuity of 20/40 that glared to 20/100 bilaterally. Pupils, motility, muscle balance, and confrontation to visual ferraro were within normal limits bilaterally. Pressures were measured at 16 bilaterally. Slit-lamp exam revealed blepharitis with a severe decrease in tear film bilaterally. Conjunctivae, cornea, anterior chamber, and iris were within normal limits bilaterally. Lens status demonstrated a 2+ nuclear sclerosis, 1+ cortical changes in the right eye and 3+ nuclear sclerosis and vacuoles in the left eye. Fundus exam is poorly dilated with poor visualization bilaterally. Optic discs, maculae, vessels, periphery, and vitreous within normal limits bilaterally. ASSESSMENT AND PLAN: 1. Visually significant cataract left eye. After risks, benefits, and alternatives, as well as expectations were delivered to the patient, he elected to go forward with cataract removal. He understands the risks to include but not limited to infection, bleeding, loss of vision, or loss of the eye itself. Secondly, he understands that postoperatively he is likely to require spectacle correction for best visual acuity. Finally, a complete ophthalmic exam was performed, and there was not determined to be any other source of vision decline other than that of the cataract. 2. COVID-19: The patient was briefed on the condition of COVID-19 and the increased risk of its contraction in the hospital setting. The patient understands that these risks occur, and he is willing to assume these risks given the severity of diminishment in activities of daily living. Ronal Busby D.O. [facility] Dictated: 05/14/2020 #[id number] Typed 05/14/2020 #[id number] cc: Ronal Busby D.O. [facility] Comment on above: Result Comment: Elec tronically Signed By: Ronal Busby DO\.br\Date and Time Signed: 05/15/20 08:06 EDT Inpatient Patient Summaryon 05-15-2020 Inpatient Patient Summary [place] [id number] [facility] Clinical Discharge Instructions PERSON INFORMATION Name: JOSE JUAN ALVARES [facility]#:[id number] PHYSICIANS Admitting Physician: Ronal Busby DO Attending Physician: Ronal Busby DO PCP: ANTONIO GERONIMO JR, DO Discharge Diagnosis: Cataract; Floppy iris syndrome Comment: PATIENT EDUCATION INFORMATION Instructions: Medication Leaflets: Follow up: With: Address: When: JOLIE DEUTSCH [address] [place] [address] ( [phone] Business (1) Within 1 to 2 days Type Location Start Finish State Surgery [facility] 05/29/2020 8:30 AM 05/29/2020 8:40 AM Confirmed MEDICATION LIST Medications to Continue with No Changes Other Medications colesevelam (Welchol 625 mg Tab) insulin aspart (NovoLog) insulin glargine (Lantus) lisinopril (lisinopril 10 mg Tab) metformin (metformin 500 mg oral tablet) methylphenidate (Ritalin 10 mg oral tablet) pioglitazone (pioglitazone 15 mg Tab) pravastatin (pravastatin 40 mg Tab) tamsulosin (tamsulosin 0.4 mg Cap) Comment: Normal [facility] Main OR PACU II [facility] Main OR PACU II Record PACU Phase II Document Type FT Summary Primary Physician: Ronal Busby DO Finalized Date/Time: 05/15/20 09:59:45 Pt. Name: JOSE JUAN ALVARES/Sex: 1940 Male Med Rec #: [id number] Physician: Ronal Busby DO Financial #: [id number] Pt. Type: A Room/Bed: [place] [address] Admit/Disch: 05/15/20 06:27:27 - Institution: Case Times PACU II FT Pre-Care Text: Identifies barriers to communication and implements measures to provide psychological support and determines knowledge level Develops individualized plan of care, and ensures continuity of care Maintains patient's dignity and privacy, and maintains patient confidentiality Identifies and reports philosophical, cultural, and spiritual beliefs and values Identifies individual values and wishes concerning care administers prescribed antibiotic therapy and immunizing agents as ordered, Evaluates postoperative tissue perfusion Implements thermoregulation measures, and monitors body temperature Evaluates postoperative respiratory status Evaluates postoperative cardiac status Evaluates postoperative neurological status Assesses pain control, collaborated in initiating patient-controlled analgesia and implements alternative methods of pain control Verifies allergies, administers prescribed medications and solutions, evaluates response to medications Entry 1 In PACU II 05/15/20 09:20:00 Discharge from PACU 05/15/20 10:00:00 II Outcomes Met? Yes Last Modified By: Kee Dave RN 05/15/20 09:59:44 Post-Care Text: The patient demonstrates knowledge of the expected response to the operative or invasive procedure The patient's care is consistent with the individualized perioperative plan of care The patient's right to privacy is maintained The patient's value system, lifestyle, ethnicity, and culture are considered, respected, and incorporated into the perioperative plan of care The patient participates in decisions affecting his or her perioperative plan of care. The patient is free from signs and symptoms of infection The patient has wound/tissue perfusion consistent with or improved from baseline levels established preoperatively The patient is at or returning to normothermia at the conclusion of the immediate postoperative period The patient's respiratory function is consistent with or improved from baseline levels established preoperatively The patient's cardiovascular status is consistent with or improved from baseline levels established preoperatively The patient's neurological status is consistent with or improved from baseline levels established preoperatively The patient demonstrates and/or reports adequate pain control throughout the perioperative period The patient received appropriate medication(s), safely administered during the perioperative period Finalized By: Kee Dave RN Document Signatures Signed By: Kee Dave RN 05/15/20 09:[address] [facility] Main OR Preoperative Recordo n 05-15-2020 Main OR Preoperative Record PreOp Document Type FT Summary Primary Physician: Ronal Busby DO Finalized Date/Time: 05/15/20 09:03:04 Pt. Name: DIAJOSE JUAN/Sex: 1940 Male Med Rec #: [id number] Physician: Ronal Busby DO Financial #: [id number] Pt. Type: A Room/Bed: [facility]/ Admit/Disch: 05/15/20 06:27:27 - Institution: Case Times PreOp FT Pre-Care Text: Verifies consent for planned procedure, identifies individual values and wishes concerning care, includes family members in perioperative teaching Entry 1 Patient Times. In Pre Surgery 05/15/20 06:35:00 Out Pre Surgery 05/15/20 08:41:00 Outcomes Met? Yes Last Modified By: Christopher Norton RN 05/15/20 09:03:00 Post-Care Text: The patient participates in decisions affecting his or her perioperative plan of care Finalized By: Christopher Norton RN Document Signatures Signed By: Christopher Norton RN 05/15/20 09:[address] [facility] Main OR Preoperative Record Holding Area Document Type FT Summary Primary Physician: Ronal Busby DO Finalized Date/Time: 05/15/20 07:02:56 Pt. Name: JOSE JUAN ALVARES Faiza Ortiz/Sex: 1940 Male Med Rec #: [id number] Physician: Ronal Busby DO Financial #: [id number] Pt. Type: A Room/Bed: [place] [address] Admit/Disch: 05/15/20 06:27:27 - Institution: Case Times Holding FT Pre-Care Text: Verifies consent for planned procedure, identifies individual values and wishes concerning care, includes family members in perioperative teaching Secures patient's records' belongings, and valuables, maintains patient's dignity and privacy, and maintains patient confidentiality Entry 1 In Holding 05/15/20 06:35:00 Outcomes Met? Yes Last Modified By: Roshni Olmstead RN 05/15/20 06:58:05 Post-Care Text: The patient participates in decisions affecting his or her perioperative plan of care The patient's right to privacy is maintained Surgery Checklist FT Entry 1 Patient ID Band Check Procedure Surgical Consent, With Identification: Verification: Family, With Patient NPO after Midnight: No Date/Time: 05/15/20 06:00:00 Personal Items: Glasses, Jewelry Personal Items watch, hearing aids Comment: both ears Complaints of Pain: No Operative Site Yes Marking: Marked By: Megan olmstead rn Location: above left eye Does Patient Smoke No Patient states Yes Comment - Adult Tierney= sister in law postop adult Supervision supervision available Case Cancelled in No Holding Area see comments below for reason Last Modified By: Roshni Olmstead RN 05/15/20 07:02:53 Finalized By: Roshni Olmstead RN Document Signatures Signed By: Roshni Olmstead RN 05/15/20 07:[address] [facility] Outpatient Surgery Discharge Instructionon 05-15-2020 Outpatient Surgery Discharge Instruction [place] [id number] Patient Discharge Instructions PERSON INFORMATION Name: JOSE JUAN ALVARES Date of : 1940 Current Date: 05/15/2020 07:26:42 PHYSICIANS Admitting Physician: Ronal Busby DO Discharge Diagnosis: Cataract; Floppy iris syndrome JOSE JUAN ALVARES has been given the following list of follow-up instructions, prescriptions, and patient education materials: PATIENT FOLLOW-UP INFORMATION Diet: Regular Call Your Doctor For: Severe pain at the operative site Wound Care Instructions: Remove dressing as instructed IF UNABLE TO CONTACT YOUR PHYSICIAN AND YOU FEEL IT IS AN EMERGENCY, GO TO THE NEAREST EMERGENCY ROOM OR CALL 911 I, JOSE JUAN ALVARES, have received the attached patient education materials/instructions and have verbalized understanding: May we do a follow up call? Yes No I was present when discharge instructions were given ___ Patient Signature Date Clinican/Nurse Signature Date Follow up: With: Address: When: JOLIE DEUTSCH [address] [place] [address] [phone] Business (1) Within 1 to 2 days Type Location Start Finish State Surgery [facility] 05/29/2020 8:30 AM 05/29/2020 8:40 AM Confirmed Pharmacy Information: Thank you for choosing [facility] HERE ARE THE MEDICATION CHANGES THAT OCCURRED DURING YOUR HOSPITAL STAY Medications to Continue with No Changes Other Medications colesevelam (Welchol 625 mg Tab) insulin aspart (NovoLog) insulin glargine (Lantus) lisinopril (lisinopril 10 mg Tab) metformin (metformin 500 mg oral tablet) methylphenidate (Ritalin 10 mg oral tablet) pioglitazone (pioglitazone 15 mg Tab) pravastatin (pravastatin 40 mg Tab) tamsulosin (tamsulosin 0.4 mg Cap) PATIENT EDUCATION INFORMATION Instructions: [facility] Patient Education - Texton 0 05-15-2020 Patient Education - Text [facility] Progress Note-Physicianon Progress Note-Physician Patient: JOSE JUAN ALVARES Age: 79 years Sex: Male : 1940 Associated Diagnoses: None Author: Ronal Busby DO Postoperative Information Date/ Time: 04/14/2020 09:15:00 Preoperative Diagnosis: Senile Cataract - OS, IFIS - OS . Postoperative Diagnosis: same . Procedure: Complex Cataract Extraction with IOL placement - OS. Anesthesia Method: Local. Performed by: Ronal Busby DO. Specimens Removed: none . Estimated Blood Loss: 0 ml. Complications: None. [facility] Comment on above: Result Comment: Elec tronically Signed By: Ronal Busby DO\.br\Date and Time Signed: 05/15/20 09:15 EDT Consent for Procedure/Surger yon 05-11-2020 Consent for Procedure/Surgery [id number] [facility] HISTORY PHYSICALon 8 HISTORY PHYSICAL HNO ID: [id number] thor: Luzmaria Crane: (none)Author Type: Physician AssistantType: HANDPFiled: 12/17/2017 1:18 PMNote Text:PROCEDURAL SEDATION HISTORY AND PHYSICAL EXAMSERVICE DATE: 12/17/2017SERVICE TIME: 1:18 PMSubjectiveHPI: This is a 77 year old male who presents with neck painPAST ANESTHESIA HISTORY: No history of adverse eventPAST MEDICAL HISTORYDiagnosis Date- Diabetes mellitus without mention of complication Diabetes mellitus- Unspecified essential hypertension Essential hypertensionPAST SURGICAL HISTORYProcedure Laterality Date- COLONOSCOP W/ OR W/O BRS SPEC Colonoscopy- OPEN RX ANKLE DISLOCATN+FIXATN ORIF Ankle- REPAIR OF NASAL SEPTUM Septoplasty hx sinus surgery surgery leftPrior to Admission medications as of 12/16/17 1424Medication Sig Last Dose TakingtraMADol (ULTRAM) 50 mg tablet Take 50 mg by mouth every 4 hours asneeded.ferrous sulfate 324 mg (65 mg iron) TbEC Take 1 tablet by mouth twicedaily with meals.docusate sodium 100 mg capsule Take 1 capsule by mouth twice daily.methylphenidate (RITALIN) 10 mg tablet Take 10 mg by mouth as directed.lisinopril 10 mg tablet Take 10 mg by mouth once daily.sitaGLIPtin-metFORMIN (JANUMET XR) 50-1,000 mg TM24 Take by mouth.Aspirin 81 mg Tab Take 81 mg by mouth. not takingnateglinide (STARLIX) 120 mg tablet Take 120 mg by mouth as directed.tamsulosin (FLOMAX) 0.4 mg Cp24 Take 0.4 mg by mouth.montelukast (SINGULAIR) 10 mg tablet Take 10 mg by mouth as directed.ALLERGIESNo Known AllergiesObjectivePHYSICAL EXAM: The remainder of the physical exam is noncontributory.AIRWAY: Airway Visualization of Uvula: No (See Comment) (MP4)Mouth opening greater than 2 fingerbreadths: No (See Comment) (2fingerbreadths)Neck Full Range of Motion: No (See Comment) (Severely limited extension )LUNGS: Lungs clear to auscultation, Good diaphragmatic excursionCARDIAC: Normal S1 and S2; no rubs, murmurs, or gallops, regular rate andrhythmAssessment/PlanASA Class: ASA Class:: Patient with severe systemic diseaseActive Problems: Facet arthropathy, cervical (HCC) Assessment AND Plan: Facet arthropathy, cervical 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 *Provisional Diagnosis/Treatment Plan: Facet arthropathy, cervical AndSpondylosis of cervicothoracic region without myelopathy orradiculopathy/Cervical facet blockSIGNATURE: Luzmaria Vivas PA-C PATIENT NAME: Jose Juan ZiegleryDATE: December 17, 2017 : 1:18 PM PAGER: [phone] [facility] OPERATIVE NOon 12-17-2017 OPERATIVE NO HNO ID: [id number] thor: Galdino Ayala: Pain ManagementAuthor Type: PhysicianType: Operative ReportFiled: 12/19/2017 5:10 PMNote Text:[facility] Management CenterPre-Procedure NotePatient Name: Jose Juan ZiegleryMRN: [id number]:Jose Juan Alvares is a 77 year old male who [facility] BL CERVICAL FACET MEDIAL BRANCH NERVE BLOCK.This is his first (1) procedure..The pain is located in the back of the neck and radiates to left shoulder.The pain is aching in nature and is described as constant. Current painintensity is 7.Patient denies any contraindications to the procedure includingcoagulopathy, infection, recent cerebral/myocardial infarct andhemodynamic instability. 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 There are no contraindications to the procedure.The patient expressed understanding and agreed to proceed. The personnelperforming the procedure was discussed. I verify that I personallyobtained Jose Juan Alvares's consent prior to the start of the procedure andthe signed consent can be found on the patient's chart.[place] 2017PROCEDURE: BL CERVICAL FACET MEDIAL BRANCH NERVE BLOCK (C 2 - C 5 )DESCRIPTION OF PROCEDURE:The patient was brought to the fluoroscopy suite.IV access was obtained prior to the procedure. The patient was positionedprone on the fluoroscopy table. Continuous hemodynamic monitoring wasinitiated including blood pressure, EKG, and pulse oximetry. IV sedationwas administered incrementally to allow the patient to remain comfortableand conversant throughout the procedure. The area of the cervical spinewas prepped povidone-iodine three times and draped into a sterile field.Fluoroscopy was used to identify the location of the cervical medialbranch nerves at the junctions of the superior articular process and thetransverse processes. Skin anesthesia was achieved using 4 cc of Lidocaine1% over the injection sites. A 22 gauge, 3 1/2 spinal needle was slowlyinserted at each level using AP, lateral and oblique fluoroscopic imaging.Negative aspiration for blood or CSF was confirmed. 0.5 ml of bupivacaine0.5% was injected in each level. The same technique was followed on theother side. A total of 4 ml bupivacaine 0.5% was injected on bothsides.The needles were removed and bleeding was nil. A sterile dressingwas applied. Jose Juan Kendall Karliecarina was taken to the Post-block Recovery Area forfurther observation.Sedation: Yes: Anxiolysis; Versed 2 mg IVPrimary Surgeon : Galdino Cho MDASST:NoneComplications: NoneEBL: NONESpecimen: NoneStart time: 1354Finish time: 1406ShriAdenike Kirk 2017[facility] Pain Management CenterPost-Procedure NotePatient name: Jose Juan Kendall KarlieyMRN: [id number]:Pre Procedure diagnosis:Cervical spondylosis without myelopathy (primary encounter diagnosis)Facet arthropathy, cervicalCervicalgiaPost-Pro cedure diagnosis: samePost Procedure Pain Level: 0 on a scale of 0-10.Postoperative Nausea/Vomiting (PONV): absentPostoperative hydration status: adequatePLAN:- s/p BL CERVICAL FACET MEDIAL BRANCH NERVE BLOCK (C 2 - C 5 ) # 1 .- RTC in 2-4 weeks for BL CMBB.- The treatment plan was discussed with the patient. Post procedureinstructions were reviewed and the patient voiced understanding.Jose Juan Alvares was discharged to Home. Condition at the time ofdischarge was Adenike Preston 2017 [facility] PT EDon 12-17-2017 PT ED HNO ID: [id number] thor: Inga Phillips (Rn) Eric RNService: (none)Author Type: Registered NurseType: Patient EducationFiled: 12/17/2017 2:17 PMNote Text:POST OP LEARNING RESPONSEINSTRUCTION PROVIDED TO: Patient and family memberMETHOD OF INSTRUCTION: Written instruction - handoutsVerbal instructionPATIENT / FAMILY RESPONSE: Verbalizes understanding of: POST-PROCEDUREINSTRUCTIONS- Correct actions to take to reduce post procedurecomplicationsFOLLO W-UP PLAN: Follow up phone call.SUPPLEMENTAL MATERIAL: NoneREFERRAL (RECOMMENDATION): NoneElectronically Signed By: Inga Reyes RN In Department: PROCEDURES [facility] CNOVon 12-16-2017 CNOV Office Visit (PAMAVN) -------JOSE JUAN ALVARES ([id number]) 1940 MDate Time Provider Department12/16/17 8:40 AM GALDINO CHO During your visit today, we recorded the following information about you: Pulse Blood pressure 100/minute 129/76Galdino Cho MD 12/17/2017 4:23 PM Addendum. Chronic Pain Consult NoteDate: December 16, 2017 - 9:13 AMReferring physician: SelfThis consult was requested by Self for my medical opinion. My finalrecommendations will be communicated to the referring physician by [facility] for [facility] providers or by letter via [facility] for external providers.Chief Complaint: Neck painHistory of Present Illness:Jose Juan Alvares is a 77 year old male who [facility] with a chief complaint of neck pain. Thepatient has had this pain for 2 months. The pain is located in the neck andradiates to the left upper extremity to the level of the shoulder. The painis described as a constant pain that is aching and stiff. Today, the painintensity is rated as a 10 on a scale of 0-10. The pain intensity is rated 5 onthe BEST day and a 10 on the WORST day. Symptoms interfere with physicalactivity, work, sleeping, driving, reaching for shelves and lifting. The painis exacerbated by trying to turn his neck. The pain is alleviated bymedications. The patient reports 4 hours of uninterrupted sleep per night.The patient reports none.Previous pain treatments: medications, TENS, chiropractic manipulation,injectionsPhys ical Therapy/Home Exercise: NoPain Medications:- Opioids: tramadol- NSAIDs: aleve, mortin- Anti-Depressants: n- Anti-Convulsants: gabapentin- Others: baclofenOARRS Report: Reviewed: The patient's OARRS report was reviewed and isconsistent with the reported medication use.Pain medications reviewed: YesPast Medical History:PAST MEDICAL HISTORYDiagnosis Date- Diabetes mellitus without mention of complication Diabetes mellitus- Unspecified essential hypertension Essential hypertensionPast Surgical History:PAST SURGICAL HISTORYProcedure Laterality Date- COLONOSCOP W/ OR W/O [facility] SPEC Colonoscopy- OPEN RX ANKLE DISLOCATN+FIXATN ORIF Ankle- REPAIR OF NASAL SEPTUM Septoplasty hx sinus surgery surgery leftFamily History: No family history on file.Social History:Alcohol Use: Approximately 1.5 oz/week [which includes 1 Mixed Drinks per week]Tobacco Use: for 20 years. Quit 05/19/1973. Types: Cigarettes, Pipe, CigarsDrug Use: NoOccupation: Employed- works part-time at [employer]Psychiatric History: no historyAllergies:ALLERGIESN o Known AllergiesCurrent Outpatient Medications:Current Outpatient Prescriptions:traMADol (ULTRAM) 50 mg tablet Take 50 mg by mouth every 4 hours as needed.ferrous sulfate 324 mg (65 mg iron) TbEC Take 1 tablet by mouth twice dailywith meals.docusate sodium 100 mg capsule Take 1 capsule by mouth twice daily.methylphenidate (RITALIN) 10 mg tablet Take 10 mg by mouth as directed.lisinopril 10 mg tablet Take 10 mg by mouth once daily.sitaGLIPtin-metFORMIN (JANUMET XR) 50-1,000 mg TM24 Take by mouth.Aspirin 81 mg Tab Take 81 mg by mouth.nateglinide (STARLIX) 120 mg tablet Take 120 mg by mouth as directed.tamsulosin (FLOMAX) 0.4 mg Cp24 Take 0.4 mg by mouth.montelukast (SINGULAIR) 10 mg tablet Take 10 mg by mouth as directed.No current facility-administered medications for this visit.Review of Systems:GENERAL: No weight loss, malaise or fevers.HEENT: Negative for frequent or significant headachesNECK: Negative for lumps and painRESPIRATORY: Negative for cough, shortness of breath.CARDIOVASCULAR: Negative for chest pain.GASTROINTESTINAL: Negative for abdominal discomfort, or change in bowel habitsGENITOURINARY: No history of dysuria, frequency or incontinenceMUSCULOSKELETAL : See HPINEUROLOGIC: Negative for dizziness or syncope.SKIN: Negative for lesions, rash, and itching.PSYCHIATRIC: Negative for sleep disturbance, recent psychosocial stressors.HEMATOLOGIC/LYMPH ATIC/IMMUNOLOGIC: Negative for prolonged bleeding, bruisingeasily or swollen nodes.ENDOCRINE: Negative for cold or heat intolerance, polyuria, polydipsia andgoiter.The remainder of the ROS was negative.Physical Examination:BP 129/76 Pulse 100General:well appearing, alert, in no acute distressSkin: skin color, texture, turgor normal, no rashes or lesionsHEENT: normocephalic, atraumatic, sclera non-ictericCV: Regular rate and rhythm.- pulses equalResp: percussion normal, good diaphragmatic excursionGI: Soft, non-tender, non-distended.: not examinedMusculoskeletal: Neck: Supple; good ROM., Tenderness over the bilateral cervical paraspinalmuscles Back: No pain on palpation of the lumbar spine. Full ROM without reproduciblepain. Extremities: Extremities normal. No deformities, edema, or skin discolorationNeurological: Mental Status: alert Cranial Nerves: Not examined Reflexes: Deep tendon reflexes are 2+ all throughout. Motor Strength: Motor strength and tone are 5/5 all throughout. Sensory: Sensation was intact to light touch all throughout. Gait: Normal.Recent Imaging:MRI cervical : moderate central canal naorrowing secondary to facet spondylosisAssessment:Jose Juan Alvares is a 77 year old male with a chief complaint of neck pain. Thepatient has had this pain for 2 months. The pain is located in the neck andradiates to the left upper extremity to the level of the shoulder. Symptomsinterfere with physical activity, work, sleeping, driving, reaching for shelvesand lifting. The pain is exacerbated by trying to turn his neck. 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 Patient will benefit from physical therapy with emphasis on corestabilization exercises, correction of body mechanics, development of homeexercise program, soft-tissue/joint mobilization, stretching/flexibilityexerc ise2. Pt would benefit froma series of 2 diagnostic and possibly therapeuticbilateral cervical facets medial branch block (C3,4,5,6). If the patientsacquired consistent and substantial but temporary relief, we can proceed withradiofrequency ablation of bilateral cervical facet medial branch(C3,4,5,6).Risks, benefits and alternatives were discussed with the patient indetails. All patients questions were answered.3. Continue NSAIDs and baclofen4. Counseled patient regarding the importance of activity modification, diet,exercise, consistent sleep habits and stress management.The above plan and management options were discussed at length with patient.Patient is in agreement with the above and verbalized understanding. It will becommunicated with the referring physician via electronic record, fax, or mail.[place] 2017Galdino Cho MD 12/16/2017 9:34 AM Signed1. Patient will benefit from physical therapy with emphasis on corestabilization exercises, correction of body mechanics, development of homeexercise program, soft-tissue/joint mobilization, stretching/flexibilityexerc ise2. Pt would benefit froma series of diagnostic and possibly therapeuticbilateral cervical facets medial branch block (C3,4,5,6). If the patientsacquired consistent and substantial but temporary relief, we can proceed withradiofrequency ablation of bilateral cervical facet medial branch(C3,4,5,6).Risks, benefits and alternatives were discussed with the patient indetails. All patients questions were answered.3. Continue NSAIDs and baclofen4. 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 ASPIRIN 81 MG TABLET Take 81 mg by mouth. NATEGLINIDE 120 MG TABLET Take 120 mg by mouth as direc* TAMSULOSIN 0.4 MG CAPSULE Take 0.4 mg by mouth. MONTELUKAST 10 MG TABLET Take 10 mg by mouth as direct*Problem List As Of Date 12/16/2017 Noted Resolved Arthritis of knee, degenerative [M17.10] INVALID FOR* Unspecified essential hypertension [I10] More... Primary localized osteoarthrosis, lower leg [M1*INVALID FOR* Facet arthropathy, cervical (HCC) [M46.92] INVALID FOR* More... Spondylosis of cervicothoracic region without m*INVALID FOR* More... Other instructions from your clinician: 1. Patient will benefit from physical therapy with emphasis on core stabilization exercises, correction of body mechanics, development of home exercise program, soft-tissue/joint mobilization, stretching/flexibility exercise 2. Pt would benefit froma series of diagnostic and possibly therapeutic bilateral cervical facets medial branch block (C3,4,5,6). If the patients acquired consistent and substantial but temporary relief, we can proceed with radiofrequency ablation of bilateral cervical facet medial branch (C3,4,5,6).Risks, benefits and alternatives were discussed with the patient in details. All patients questions were answered. 3. Continue NSAIDs and baclofen 4. Counseled patient regarding the importance of activity modification, diet, exercise, consistent sleep habits and stress management. Status:Closed by GALDINO CHO MD on 12/17/17 [facility] 12-16-2017 HOSP Patient:Kristin Alvares WMRN: Height:5' 9 (1.753 m)Weight:220 lb 0.3 oz (99.8 kg)Outpatient Medications as of 12/17/17:traMADol (ULTRAM) 50 mg tabletferrous sulfate 324 mg (65 mg iron) TbECdocusate sodium 100 mg capsulemethylphenidate (RITALIN) 10 mg tabletlisinopril 10 mg tabletsitaGLIPtin-metFORMIN (JANUMET XR) 50-1,000 mg [id number] 81 mg Tabnateglinide (STARLIX) 120 mg tablettamsulosin (FLOMAX) 0.4 mg [id number] (SINGULAIR) 10 mg tabletAdmission/Clinic Administered Medications as of 12/17/17:Patient has no admission medications.Problem List:Arthritis of knee, degenerative [M17.10]Unspecified essential hypertension [I10]Primary localized osteoarthrosis, lower leg [M17.10]Facet arthropathy, cervical (HCC) [M46.92]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 Chronic Pain Consult NoteDate: December 16, 2017 - 9:13 AMReferring physician: SelfThis consult was requested by Self for my medical opinion. My finalrecommendations will be communicated to the referring physician by way of theshared medical record for internal providers or by letter via the [facility] Service for external providers.Chief Complaint: Neck painHistory of Present Illness:Jose Juan Alvares is a 77 year old male who presents to [facility] with a chief complaint of neck pain. Thepatient has had this pain for 2 months. The pain is located in the neck andradiates to the left upper extremity to the level of the shoulder. The pain isdescribed as a constant pain that is aching and stiff. Today, the pain intensityis rated as a 10 on a scale of 0-10. The pain intensity is rated 5 on the BESTday and a 10 on the WORST day. Symptoms interfere with physical activity, work,sleeping, driving, reaching for shelves and lifting. The pain is exacerbated bytrying to turn his neck. The pain is alleviated by medications. The patientreports 4 hours of uninterrupted sleep per night.The patient reports none.Previous pain treatments: medications, TENS, chiropractic manipulation,injectionsPhys ical Therapy/Home Exercise: NoPain Medications:- Opioids: tramadol- NSAIDs: aleve, mortin- Anti-Depressants: n- Anti-Convulsants: gabapentin- Others: baclofenOARRS Report: Reviewed: The patient's OARRS report was reviewed and isconsistent with the reported medication use.Pain medications reviewed: YesPast Medical History:PAST MEDICAL HISTORYDiagnosis Date- Diabetes mellitus without mention of complication Diabetes mellitus- Unspecified essential hypertension Essential hypertensionPast Surgical History:PAST SURGICAL HISTORYProcedure Laterality Date- COLONOSCOP W/ OR W/O [facility] SPEC Colonoscopy- OPEN RX ANKLE DISLOCATN+FIXATN ORIF Ankle- REPAIR OF NASAL SEPTUM Septoplasty hx sinus surgery surgery leftFamily History: No family history on file.Social History:Alcohol Use: Approximately 1.5 oz/week [which includes 1 Mixed Drinks per week]Tobacco Use: for 20 years. Quit 05/19/1973. Types: Cigarettes, Pipe, CigarsDrug Use: NoOccupation: Employed- works part-time at [employer]iatric History: no historyAllergies:ALLERGIESN o Known AllergiesCurrent Outpatient Medications:Current Outpatient Prescriptions:traMADol (ULTRAM) 50 mg tablet Take 50 mg by mouth every 4 hours as needed.ferrous sulfate 324 mg (65 mg iron) TbEC Take 1 tablet by mouth twice daily withmeals.docusate sodium 100 mg capsule Take 1 capsule by mouth twice daily.methylphenidate (RITALIN) 10 mg tablet Take 10 mg by mouth as directed.lisinopril 10 mg tablet Take 10 mg by mouth once daily.sitaGLIPtin-metFORMIN (JANUMET XR) 50-1,000 mg TM24 Take by mouth.Aspirin 81 mg Tab Take 81 mg by mouth.nateglinide (STARLIX) 120 mg tablet Take 120 mg by mouth as directed.tamsulosin (FLOMAX) 0.4 mg Cp24 Take 0.4 mg by mouth.montelukast (SINGULAIR) 10 mg tablet Take 10 mg by mouth as directed.No current facility-administered medications for this visit.Review of Systems:GENERAL: No weight loss, malaise or fevers.HEENT: Negative for frequent or significant headachesNECK: Negative for lumps and painRESPIRATORY: Negative for cough, shortness of breath.CARDIOVASCULAR: Negative for chest pain.GASTROINTESTINAL: Negative for abdominal discomfort, or change in bowel habitsGENITOURINARY: No history of dysuria, frequency or incontinenceMUSCULOSKELETAL : See HPINEUROLOGIC: Negative for dizziness or syncope.SKIN: Negative for lesions, rash, and itching.PSYCHIATRIC: Negative for sleep disturbance, recent psychosocial stressors.HEMATOLOGIC/LYMPH ATIC/IMMUNOLOGIC: Negative for prolonged bleeding, bruisingeasily or swollen nodes.ENDOCRINE: Negative for cold or heat intolerance, polyuria, polydipsia andgoiter.The remainder of the ROS was negative.Physical Examination:BP 129/76 Pulse 100General:well appearing, alert, in no acute distressSkin: skin color, texture, turgor normal, no rashes or lesionsHEENT: normocephalic, atraumatic, sclera non-ictericCV: Regular rate and rhythm.- pulses equalResp: percussion normal, good diaphragmatic excursionGI: Soft, non-tender, non-distended.: not examinedMusculoskeletal: Neck: {PM NECK:47989:: Supple; good ROM. } Back: No pain on palpation of the lumbar spine. Full ROM without reproduciblepain. Extremities: Extremities normal. No deformities, edema, or skin discolorationNeurological: Mental Status: alert Cranial Nerves: Not examined Reflexes: Deep tendon reflexes are 2+ all throughout. Motor Strength: Motor strength and tone are 5/5 all throughout. Sensory: Sensation was intact to light touch all throughout. Gait: Normal.Recent Imaging:MRI cervical : moderate central canal naorrowing secondary to facet spondylosisAssessment:Jose Juan Alvares is a 77 year old male with a chief complaint of neck pain. Thepatient has had this pain for 2 months. The pain is located in the neck andradiates to the left upper extremity to the level of the shoulder. Symptomsinterfere with physical activity, work, sleeping, driving, reaching for shelvesand lifting. The pain is exacerbated by trying to turn his neck. The pain isalleviated by medications.Previous pain treatments: TENS, chiropractic manipulation, injections, PainMedications: Opioids: tramadol, NSAIDs: aleve, mortin, Anti-Convulsants:gabapentin , Others: baclofenOn exam, Plan:1. Patient will benefit from physical therapy with emphasis on corestabilization exercises, correction of body mechanics, development of homeexercise program, soft-tissue/joint mobilization, stretching/flexibilityexerc ise2. Pt would benefit froma series of 2 diagnostic and possibly therapeuticbilateral cervical facets medial branch block (C3,4,5,6). If the patientsacquired consistent and substantial but temporary relief, we can proceed withradiofrequency ablation of bilateral cervical facet medial branch(C3,4,5,6).Risks, benefits and alternatives were discussed with the patient indetails. All patients questions were answered.3. Continue NSAIDs and baclofen4. Counseled patient regarding the importance of activity modification, diet,exercise, consistent sleep habits and stress management.The above plan and management options were discussed at length with patient.Patient is in agreement with the above and verbalized understanding. It will becommunicated with the referring physician via electronic record, fax, or mail.Shrif Costandi, MDApril 2017Previous VersionSmadai Cho MD 12/16/2017 9:34 AM Signed1. Patient will benefit from physical therapy with emphasis on corestabilization exercises, correction of body mechanics, development of homeexercise program, soft-tissue/joint mobilization, stretching/flexibilityexerc ise2. Pt would benefit froma series of diagnostic and possibly therapeuticbilateral cervical facets medial branch block (C3,4,5,6). If the patientsacquired consistent and substantial but temporary relief, we can proceed withradiofrequency ablation of bilateral cervical facet medial branch(C3,4,5,6).Risks, benefits and alternatives were discussed with the patient indetails. All patients questions were answered.3. Continue NSAIDs and baclofen4. Counseled patient regarding the importance of activity modification, diet,exercise, consistent sleep habits and stress management. [facility] PROGRESSon 12-16-2017 PROGRESS HNO ID: [id number] thor: Galdino Ayala: (none)Author Type: PhysicianType: Progress NotesFiled: 12/17/2017 4:23 PMNote Text:. Chronic Pain Consult NoteDate: December 16, 2017 - 9:13 AMReferring physician: SelfThis consult was requested by Self for my medical opinion. My finalrecommendations will be communicated to the referring physician by way ofthe shared medical record for internal providers or by letter via the[facility] for external providers.Chief Complaint: Neck painHistory of Present Illness:Jose Juan Alvares is a 77 year old male who presents to [facility] with a chief complaint of neck pain.The patient has had this pain for 2 months. The pain is located in theneck and radiates to the left upper extremity to the level of theshoulder. The pain is described as a constant pain that is aching andstiff. Today, the pain intensity is rated as a 10 on a scale of 0-10. Thepain intensity is rated 5 on the BEST day and a 10 on the WORST day.Symptoms interfere with physical activity, work, sleeping, driving,reaching for shelves and lifting. The pain is exacerbated by trying toturn his neck. The pain is alleviated by medications. The patient reports4 hours of uninterrupted sleep per night.The patient reports none.Previous pain treatments: medications, TENS, chiropractic manipulation,injectionsPhys ical Therapy/Home Exercise: NoPain Medications:- Opioids: tramadol- NSAIDs: aleve, mortin- Anti-Depressants: n- Anti-Convulsants: gabapentin- Others: baclofenOARRS Report: Reviewed: The patient's OARRS report was reviewed and isconsistent with the reported medication use.Pain medications reviewed: YesPast Medical History:PAST MEDICAL HISTORYDiagnosis Date- Diabetes mellitus without mention of complication Diabetes mellitus- Unspecified essential hypertension Essential hypertensionPast Surgical History:PAST SURGICAL HISTORYProcedure Laterality Date- COLONOSCOP W/ OR W/O [facility] Colonoscopy- OPEN RX ANKLE DISLOCATN+FIXATN ORIF Ankle- REPAIR OF NASAL SEPTUM Septoplasty hx sinus surgery surgery leftFamily History: No family history on file.Social History:Alcohol Use: Approximately 1.5 oz/week [which includes 1 Mixed Drinks perweek]Tobacco Use: for 20 years. Quit 05/19/1973. Types: Cigarettes, Pipe,CigarsDrug Use: NoOccupation: Employed- works part-time at [employer] History: no historyAllergies:ALLERGIESN o Known AllergiesCurrent Outpatient Medications:Current Outpatient Prescriptions:traMADol (ULTRAM) 50 mg tablet Take 50 mg by mouth every 4 hours asneeded.ferrous sulfate 324 mg (65 mg iron) TbEC Take 1 tablet by mouth twicedaily with meals.docusate sodium 100 mg capsule Take 1 capsule by mouth twice daily.methylphenidate (RITALIN) 10 mg tablet Take 10 mg by mouth as directed.lisinopril 10 mg tablet Take 10 mg by mouth once daily.sitaGLIPtin-metFORMIN (JANUMET XR) 50-1,000 mg TM24 Take by mouth.Aspirin 81 mg Tab Take 81 mg by mouth.nateglinide (STARLIX) 120 mg tablet Take 120 mg by mouth as directed.tamsulosin (FLOMAX) 0.4 mg Cp24 Take 0.4 mg by mouth.montelukast (SINGULAIR) 10 mg tablet Take 10 mg by mouth as directed.No current facility-administered medications for this visit.Review of Systems:GENERAL: No weight loss, malaise or fevers.HEENT: Negative for frequent or significant headachesNECK: Negative for lumps and painRESPIRATORY: Negative for cough, shortness of breath.CARDIOVASCULAR: Negative for chest pain.GASTROINTESTINAL: Negative for abdominal discomfort, or change in bowelhabitsGENITOURINARY: No history of dysuria, frequency or incontinenceMUSCULOSKELETAL : See HPINEUROLOGIC: Negative for dizziness or syncope.SKIN: Negative for lesions, rash, and itching.PSYCHIATRIC: Negative for sleep disturbance, recent psychosocialstressors.HEMAT OLOGIC/LYMPHATIC/IMMUNOLOGI C: Negative for prolonged bleeding,bruising easily or swollen nodes.ENDOCRINE: Negative for cold or heat intolerance, polyuria, polydipsia andgoiter.The remainder of the ROS was negative.Physical Examination:BP 129/76 Pulse 100General:well appearing, alert, in no acute distressSkin: skin color, texture, turgor normal, no rashes or lesionsHEENT: normocephalic, atraumatic, sclera non-ictericCV: Regular rate and rhythm.- pulses equalResp: percussion normal, good diaphragmatic excursionGI: Soft, non-tender, non-distended.: not examinedMusculoskeletal: Neck: Supple; good ROM., Tenderness over the bilateral cervicalparaspinal muscles Back: No pain on palpation of the lumbar spine. Full ROM withoutreproducible pain. Extremities: Extremities normal. No deformities, edema, or skindiscolorationNeurologic al: Mental Status: alert Cranial Nerves: Not examined Reflexes: Deep tendon reflexes are 2+ all throughout. Motor Strength: Motor strength and tone are 5/5 all throughout. Sensory: Sensation was intact to light touch all throughout. Gait: Normal.Recent Imaging:MRI cervical : moderate central canal naorrowing secondary to facetspondylosisAssessment: Jose Juan Alvares is a 77 year old male with a chief complaint of neck pain.The patient has had this pain for 2 months. The pain is located in theneck and radiates to the left upper extremity to the level of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 (1,000 mg) in the evening. Take with meals., Disp: 180 tablet, Rfl: 3 montelukast (Singulair) 10 MG tablet, Take 1 tablet by mouth at bedtime, Disp: , Rfl: NovoLOG FLEXPEN 100 UNIT/ML pen, See administration instructions Sliding scale, Disp: , Rfl: pioglitazone (Actos) 30 MG tablet, , Disp: , Rfl: Ritalin 10 MG tablet, 1 tablet on empty stomach Orally three times daily, Disp: , Rfl: spironolactone (Aldactone) 25 MG tablet, Take 1 tablet (25 mg) by mouth in the morning and 1 tablet(25 mg) before bedtime., Disp: 60 tablet, Rfl: 0 tamsulosin (Flomax) 0.4 MG 24 hr capsule, 1 capsule 1 (one) time each day at the same time, Disp: ,Rfl: Social History: Social History Socioeconomic History Marital status: Spouse name: Not on file Number of children: Not on file Years of education: Not on file Highest education level: Not on file Occupational History Not on file Tobacco Use Smoking status: Former Types: Cigarettes Smokeless tobacco: Never Tobacco comments: Last smoked : > 20 years Vaping Use Vaping status: Never Used Substance and Sexual Activity Alcohol use: Yes Alcohol/week: 4.0 - 8.0 standard drinks of alcohol Types: 4 - 8 Standard drinks or equivalent per week Drug use: Never Sexual activity: Not on file Other Topics Concern Not on file Social History Narrative Not on file Social Drivers of Health Financial Resource Strain: Not on file Food Insecurity: Not on file Transportation Needs: Not on file Physical Activity: Not on file Stress: Not on file Social Connections: Not on file Intimate Partner Violence: Not on file Housing Stability: Not on file ROS: General: denies fever, chills, fatigue, malaise GI: denies loose or watery stool on antibiotic OBJECTIVE LE EXAM: DERM: Elongated thick yellow crumbly nails digits 1 through 10. Negative hair growth with thin shiny atrophic skin bilaterally. 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 Diabetes 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, without long-term current use of insulin ([facility]) 2. Pain due to onychomycosis of toenails of both feet 3. Venous insufficiency 4. Hav (hallux abducto valgus), left 5. Hav (hallux abducto valgus), right PLAN Discussed proper foot care with patient today. Debride nails in length and thickness digits 1 through 10 Patient educated today on proper diabetic foot care including monitoring feet daily for any signs of infection openings in the skin or irregularities to both feet. Patient had a diabetic neurologicalexam today to both their feet and discussed proper shoe gear. Shay Baker DPM documented in this encounterSSM [facility] [id number] Telephone encounter Note* Telephone Encounter - Christopher Lucas - 10/19/2024 9:50 AM EST Shoe paperwork is going to be fax in for dinesh Manzano [facility] [id number] Miscellaneous Notes* Telephone Encounter - Christopher Lucas - 10/19/2024 9:50 AM EST Shoe paperwork is going to be fax in for dinesh Manzano documented in this encounterSSM [facility] [id number] History of Present illness Narrative* Arun Bolton MD - 10/04/2024 11:45 AM EST Images from the original note were not included. Patient ID: Jose Juan Alvares is a 84 y.o. male who presents for: Pt is here today to have Che recheck his right big toe. Review of Systems Constitutional: Negative for chills and fever. Respiratory: Negative for cough, shortness of breath and wheezing. Cardiovascular: Negative for chest pain and palpitations. Gastrointestinal: Negative for abdominal pain. Genitourinary: Negative for frequency and urgency. Objective 3 agreed to does have the previously described hematoma. It is soft and a little bit more fluctuanttoday but there is no sign of erythema or increased calor. The previous erythema that was noted is resolved. No Known Allergies Current Outpatient Medications on File Prior to Visit Medication Sig Dispense Refill baclofen (Lioresal) 10 MG tablet Take 1 tablet by mouth in the morning and 1 tablet in the evening and 1 tablet before bedtime. ciprofloxacin (Cipro) 500 MG tablet Take 1 tablet (500 mg) by mouth in the morning and 1 tablet (500 mg) before bedtime. Do all this for 10 days. 20 tablet 0 Continuous Blood Gluc Sensor (FreeStyle Yue 14 Day Sensor) misc fluorouracil (Efudex) 5 % cream Apply to directed areas on the scalp twice a day x 14 days. Dispense 30 day supply but only use for 14 days. 40 g 0 insulin aspart, with niacinamide, (Fiasp FlexTouch) 100 UNIT/ML injection INJECT 15-18-20 UNITS ACCORDING TO MEAL SIZE PLUS ISS#2 ( EXPECT DAILY DOSE 70 UNITS) 75 mL 1 insulin glargine (Lantus) 100 UNIT/ML injection Inject 50 Units under the skin at bedtime 45 mL 1 insulin pen needle (B-D UF III MINI PEN NEEDLES) 31G x 5 mm misc USE FOUR TIMES A DAY 100 each 3 insulin pen needle (B-D UF III MINI PEN NEEDLES) 31G x 5 mm misc Inject 1 each under the skin in the morning and 1 each at noon and 1 each in the evening and 1 each before bedtime. metFORMIN (Glucophage) 1000 MG tablet Take 1 tablet (1,000 mg) by mouth in the morning and 1 tablet(1,000 mg) in the evening. Take with meals. 180 tablet 3 montelukast (Singulair) 10 MG tablet Take 1 tablet by mouth at bedtime NovoLOG FLEXPEN 100 UNIT/ML pen See administration instructions Sliding scale pioglitazone (Actos) 30 MG tablet Ritalin 10 MG tablet 1 tablet on empty stomach Orally three times daily spironolactone (Aldactone) 25 MG tablet Take 1 tablet (25 mg) by mouth in the morning and 1 tablet (25 mg) before bedtime. 60 tablet 0 tamsulosin (Flomax) 0.4 MG 24 hr capsule 1 capsule 1 (one) time each day at the same time No current facility-administered medications on file prior to visit. 1. Cellulitis of great toe, right Improving continue antibiotic 2. Hematoma of right great toe We discussed and I really just wanted to rechecked this before the weekend to make sure he was stable. I think things are stable and we stay the course. I discussed with him that if this breaks open he is to contact me and we will need to unroof it. There is no charge for today's visit. 3. Morbid obesity due to excess calories (CMS/HCC) documented in this encounterSS[facility] [id number] History of Present illness Narrative* Arun Bolton MD - 09/30/2024 11:45 AM EST Images from the original note were not included. Patient ID: Jose Juan Alvares is a 84 y.o. male who presents for: Pt has purple looking and swollen right great toe which he states has been increasing in darkness and firmness since he had his diabetic foot exam done for his shoes last week. Review of Systems Constitutional: Negative for chills and fever. Hematological: Does not bruise/bleed easily. Objective The patient is pleasant and in no acute distress The patient has good eye contact and clear speech The patient does have a moderate hematoma around the pad of the right great toe. It is firm and intact. No evidence of cut or puncture wound. mild soft tissue erythema surrounding this. He does have onychomycosis With mild incurvation of multiple nails. Visit Vitals Ht 5' 6 Wt 219 lb BMI 35.35 kg/m Smoking Status Former BSA 2.15 m No Known Allergies Current Outpatient Medications on File Prior to Visit Medication Sig Dispense Refill baclofen (Lioresal) 10 MG tablet Take 1 tablet by mouth in the morning and 1 tablet in the evening and 1 tablet before bedtime. Continuous Blood Gluc Sensor (FreeStyle Yue 14 Day Sensor) misc fluorouracil (Efudex) 5 % cream Apply to directed areas on the scalp twice a day x 14 days. Dispense 30 day supply but only use for 14 days. 40 g 0 insulin aspart, with niacinamide, (Fiasp FlexTouch) 100 UNIT/ML injection INJECT 15-18-20 UNITS ACCORDING TO MEAL SIZE PLUS ISS#2 ( EXPECT DAILY DOSE 70 UNITS) 75 mL 1 insulin glargine (Lantus) 100 UNIT/ML injection Inject 50 Units under the skin at bedtime 45 mL 1 insulin pen needle (B-D UF III MINI PEN NEEDLES) 31G x 5 mm misc USE FOUR TIMES A DAY 100 each 3 insulin pen needle (B-D UF III MINI PEN NEEDLES) 31G x 5 mm misc Inject 1 each under the skin in the morning and 1 each at noon and 1 each in the evening and 1 each before bedtime. metFORMIN (Glucophage) 1000 MG tablet Take 1 tablet (1,000 mg) by mouth in the morning and 1 tablet(1,000 mg) in the evening. Take with meals. 180 tablet 3 montelukast (Singulair) 10 MG tablet Take 1 tablet by mouth at bedtime NovoLOG FLEXPEN 100 UNIT/ML pen See administration instructions Sliding scale pioglitazone (Actos) 30 MG tablet Ritalin 10 MG tablet 1 tablet on empty stomach Orally three times daily tamsulosin (Flomax) 0.4 MG 24 hr capsule 1 capsule 1 (one) time each day at the same time spironolactone (Aldactone) 25 MG tablet Take 1 tablet (25 mg) by mouth in the morning and 1 tablet (25 mg) before bedtime. 60 tablet 0 No current facility-administered medications on file prior to visit. 1. Cellulitis of right toe (Primary) This is mild in nature but is complicated by his diabetes. I do not suspect the monofilament test as a cause of the hematoma and infection. It is certainly a remote possibility. He does have callus along the tail but it does not appear to be cracked. The incurvated nails do pushing to the pads of his toe. He also verbally noted that his diabetic shoes wererubbing on his toes. This is part of why he had the exam previously done so as to be eligible for di abetic shoes. In prescribing a new medication consideration of the following encompasses moderate decision making: the current prescriptions and supplements, the current allergies and medication intolerances, the current medical conditions, and potential drug interactions. Risks, benefits, and reason for starting their medication were discussed. The patient was given a chance to ask questions today and all questions were answered. The patient is to contact us if any other questions arise or if any problems occur with the adjustment in their medication. - ciprofloxacin (Cipro) 500 MG tablet; Take 1 tablet (500 mg) by mouth in the morning and 1 tablet (500 mg) before bedtime. Do all this for 10 days. Dispense: 20 tablet; Refill: 0 2. Hematoma of right great toe I did discuss with him and I could not drain and unroof the hematoma. I think that would leave his toe exceedingly raw and tender. It appears his hematoma is intact at this point. We discussed the possibility that this could develop a tear or whole somewhere in the blood could leak. If that happenshe is to call and schedule for an urgent appointment. Otherwise we are going to see him back in a couple of days and re-evaluate this. 3. Type 2 diabetes mellitus with diabetic polyneuropathy, with long-term current use of insulin ([facility]/HCC) Comorbid complicating condition. documented in this encounterSSM [facility] [id number] History of Present illness Narrative* Arun Bolton MD - 09/21/2024 11:30 AM EST Images from the original note were not included. Patient ID: Jose Juan Alvares is a 84 y.o. male who presents for: Pt is here today to do a face to face for diabetic shoes and diabetic insole inserts. We received the paperwork needed from Inga Garay, Orthotics specialist from [facility], see scanned docs. [place] his shoes are wore out and over 2 years old and the shoe is tipping and making his foot turnout. He denies any foot pain, sores on his feet, diabetic neuropathy. Review of Systems Constitutional: Negative for chills and fever. Respiratory: Negative for cough, shortness of breath and wheezing. Cardiovascular: Negative for chest pain and palpitations. Gastrointestinal: Negative for abdominal pain. Genitourinary: Negative for frequency and urgency. Objective The patient is pleasant and in no acute distress The patient has good eye contact and clear speech Starting with his legs he has signs of venous insufficiency and varicosities with 1+ pitting edema both pedal and pretibial. The skin is warm with borderline capillary refill. Faint dorsal pedal us pulses are detected bilaterally. Left 2nd toe has a mildly inflamed hammertoe. The skin of the feet are very dry. He has significant callus formation on the heels and the balls of his feet. The end of the 2nd hammertoe On the left also has some callus. Monofilament testing was significantly abnormal. The patient missed all test points except for the original 1 so he could feel what the monofilament was like on his leg, in the arch of the feet bilaterally and on the pads of his toe except for the Right great toe. Otherwise, he had no sensation in either of the heel areas or across the forefoot. All of the toe pads except as noted for the right great toe. He also has some mild pes planus on the left foot. Visit Vitals Ht 5' 6 Wt 219 lb BMI 35.35 kg/m Smoking Status Former BSA 2.15 m No Known Allergies Current Outpatient Medications on File Prior to Visit Medication Sig Dispense Refill baclofen (Lioresal) 10 MG tablet Take 1 tablet by mouth in the morning and 1 tablet in the evening and 1 tablet before bedtime. Continuous Blood Gluc Sensor (FreeStyle Yue 14 Day Sensor) misc fluorouracil (Efudex) 5 % cream Apply to directed areas on the scalp twice a day x 14 days. Dispense 30 day supply but only use for 14 days. 40 g 0 insulin aspart, with niacinamide, (Fiasp FlexTouch) 100 UNIT/ML injection INJECT 15-18-20 UNITS ACCORDING TO MEAL SIZE PLUS ISS#2 ( EXPECT DAILY DOSE 70 UNITS) 75 mL 1 insulin glargine (Lantus) 100 UNIT/ML injection Inject 50 Units under the skin at bedtime 45 mL 1 insulin pen needle (B-D UF III MINI PEN NEEDLES) 31G x 5 mm misc USE FOUR TIMES A DAY 100 each 3 insulin pen needle (B-D UF III MINI PEN NEEDLES) 31G x 5 mm misc Inject 1 each under the skin in the morning and 1 each at noon and 1 each in the evening and 1 each before bedtime. metFORMIN (Glucophage) 1000 MG tablet Take 1 tablet (1,000 mg) by mouth in the morning and 1 tablet(1,000 mg) in the evening. Take with meals. 180 tablet 3 montelukast (Singulair) 10 MG tablet Take 1 tablet by mouth at bedtime NovoLOG FLEXPEN 100 UNIT/ML pen See administration instructions Sliding scale pioglitazone (Actos) 30 MG tablet Ritalin 10 MG tablet 1 tablet on empty stomach Orally three times daily spironolactone (Aldactone) 25 MG tablet Take 1 tablet (25 mg) by mouth in the morning and 1 tablet (25 mg) before bedtime. 60 tablet 0 tamsulosin (Flomax) 0.4 MG 24 hr capsule 1 capsule 1 (one) time each day at the same time No current facility-administered medications on file prior to visit. 1. Pre-ulcerative calluses He denies any previous ulcers but does sort of remember a sore on 1 of his feet couple of years ago . The calluses are moderately thickened with significant scale along the edges. 2. Type 2 diabetes mellitus with diabetic polyneuropathy, with long-term current use of insulin ([facility]) (Primary) Chronic problem question stability. He denies any significant pain is feet other than if he is on them too long they get sore and achy.We did discuss the importance of not only getting his diabetic shoes, but checking his feet every single day. And then on questioning he acknowledges having a tack in 1 of his feet couple of years ago. We also discussed that they make pumice stones with a handle in it might be a good idea if he couldespecially promises he will is a little bit. 3. Hammer toe of second toe of left foot Chronic problem that is inflamed. They discussed and he has no pain here. We discussed that that isall the more important he keeps an eye on this area as he could get infection and not realize it and then have a diabetic foot infection. He verbalized understanding. 4. Varicose veins of bilateral lower extremities with other complications Chronic problem, stable, on spironolactone. Comorbidity for the potential complications of his feet. 5. Morbid obesity due to excess calories ([facility]) Recommend once he gets his new shoes he tried to do more walking. documented in this encounterSSM [facility] Health [id number] History of Present illness Narrative* Genna Yañez MD - 09/13/2024 1:40 PM EST Jose Juan Alvares is a 84 y.o. male Genna Yañez MD presents with chief complaint of Diabetes HPI: Interim history: 09/2024 Followup visit 09/13/2024 for type 2 diabetes. A1c in the office 8.6, blood sugar 199. He is on Lantus 50, Fiasp 06-12-15 with ISS#2, off metformin 1000 twice a day, actos 30. Interim history: 05/2024 Followup visit 05/10/2024 for type 2 diabetes. A1c in the office 9.1, blood sugar 203 . He is on Lantus 50, Fiasp --- with ISS#2, off metformin 1000 twice a day, actos 30. CGM interpretation: 0-15-85 , avg 236. Interim history: 12/2023 Followup visit 01/12/2024 for type 2 diabetes. A1c in the office 8.7, blood sugar 147 . He is on Lantus 50,Fiasp --06-12 with ISS#2, off metformin 1000 twice a day, actos 30. CGM interpretation: 09-22-76 , avg 225. can not tolerate [email or web address] Interim history: 09/2023 Followup visit 09/15/2023 for type 2 diabetes. A1c in the office 8.8, blood sugar 234 . He is on Lantus 50, Humalog 06-12-15 with ISS#2, off metformin 1000 twice a day, actos 30. CGM interpretation: , avg 205. lab on 09/2023 GFR 48, TC 193, HDL 44, LDL 121, VIT D 25, AL/CR 170. Interim history: 05/2023 Followup visit 05/19/2023 for type 2 diabetes. A1c in the office 8.4, blood sugar 224 . He is on Lantus 50, Humalog 06-12-14 with ISS#2, metformin 1000 twice a day, actos 15. CGM interpretation: 0-17-83 , avg 232. Interim history: 10/2022 Followup visit 11/20/2022 for type 2 diabetes. A1c in the office 8.6, blood sugar 200 . He is on Lantus 50, Humalog - with ISS#2, metformin 1000 twice a day, off actos 15. CGM interpretation: 0-10-90 , avg 240. Interim history: 07/2022 Followup visit 07/10/2022 for type 2 diabetes. A1c in the office 8.7, blood sugar 157 . He is on Lantus 50, Humalog 14 with ISS#2, metformin 1000 twice a day, actos 15. CGM interpretation: 0-17=83 , avg 225 Interim history: 12/2021 Followup visit 01/15/2022 for type 2 diabetes. A1c in the office 8.2, blood sugar 159 . He is on Lantus 50, Humalog 6-10 with ISS#2, metformin 1000 twice a day, actos 15. CGM interpretation: 0-61-39, avg 172 Interim history: 10/2021 Followup visit 10/29/2021 for type 2 diabetes. A1c in the office 8.6, blood sugar 208. He is on Lantus 40, Humalog 6, 8, 14 with ISS#2, metformin 1000 twice a day, CGM interpretation: 113-87, avg 217 Interim history: 07/2021 Followup visit 07/12/21 for type 2 diabetes. A1c in the office 7.6, blood sugar 177. He is on Lantus 40, Humalog 6, 8, 10 with ISS#2, metformin 1000 twice a day, CGM interpretation: 134-65, avg 197 Interim history: 04/2021 Followup visit 04/17/21 for type 2 diabetes. A1c in the office 7.8, blood sugar 215. He is on [id number], Humalog 6, 8, 10 with ISS#2, metformin 1000 twice a day . on Actos 15, CGM interpretation: 0-59-41, avg 173 Interim history: 11/2020 Followup visit 01/01/21 for type 2 diabetes. A1c in the office 8.4, blood sugar 133. He is on Lantus 40, Humalog 6, 8, 10 with ISS#2, metformin 1000 twice a day . on Actos 15, CGM interpretation: 647-53, avg 186 Interim history: 10/2020 Followup visit 10/09/20 for type 2 diabetes. A1c in the office 8.5, blood sugar 178. He is on Lantus 40, Humalog 6, 8, 10 with ISS#2, metformin 1000 twice a day . on Actos 15, CGM interpretation: 6-62-38, avg 171 Interim history: 06/2020 Followup visit 06/12/20 for type 2 diabetes. A1c in the office 7.8, blood sugar 158. He is on Lantus 30, Humalog 6, 8, 10 with ISS#2, metformin 1000 twice a day , off Victoza 1.2. on Actos 15, CGM interpretation: 7 days 184, 30 days 182 Interim history: 01/2020 Followup visit 02/16/20 for type 2 diabetes. A1c in the office 7.7, blood sugar 117. He is on [id number], Humalog 6, 8, 10, barely uses scale, #2, metformin 1000 twice a day but barely he used Victoza 1.2 and Actos 15, he said maybe once or twice a week. CGM interpretation: Low percent in low range, 74 in good range, 25 above range target, 155. Interim History: 10/2019. Follow-up visit of 10/06/2019 for type 2 diabetes. A1c in the office 8.2, blood sugar is 178. CGM interpretation; 1% in low range, 50 in good range, and 40 in high range, average 171. He is on [id number], Humalog 6-8-10 according to meal size, metformin 1000 twice a day, Actos 15, and Victoza 1.2. He is off for almost 1 week. Interim history 07/20. Followup visit on 07/14/2019 for type 2 diabetes, A1c 7.4, blood sugar is 136. CGM interpretation in his arm in 0 in low range, 55 in good range, 45 in high range, average 178 . He is on Lantus 50, barely used Humalog, sometimes 3 units when sugar is high. Does not have scale yet and metformin 1000twice a day, Actos 15 and Victoza 1.2. Interim History 04/19: Followup visit on 04/28/19 for type 2 diabetes, A1c at the office is 8.7, blood sugar is 110. CGM Interpretation: A low range study, good range 64, 69 in high range, average 201. He is on Lantus 50. Humalog 3-4-5, no sliding scale, metformin 1000 twice a day and Actos 15, Victoza at 1.8 but he is not consistent doing once or twice a week Interim history: 12/2018 Follow-up visit 01/21/19 for type 2 diabetes. CGM interpretation done: 1% in low range, 32% in goodrange, 67% in high range, average 205, standard deviation 55. He had a severe low yesterday. Last visit we cut back his Lantus to 60 and he did not do Humalog 6, 8, 10, he thinks that causes too low.Metformin 1000 twice a day and now Actos 15 and he started Victoza with his PCP back 1.8. Labs done. BUN 19, creatinine 1.1, GFR above 60, total cholesterol 132, HDL 35, LDL 56, triglycerides 202, albumin/creatinine 82 positive, vitamin D 36, C-peptide 5. HPI: 01/17 New patient came by himself for diabetes. He has diabetes since long time. 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 Erratic insulin schedule. Use Lantus 72 units when he come from work, metformin 1000 mg twice a day, Actos not sure the dose (lowest dose he say), and he has diabetes since long time. Due for eye exam.A1c in the office 10.3, blood sugars 194. SUBJECTIVE: MEDICATIONS: Current Outpatient Medications Medication Instructions baclofen (Lioresal) 10 MG tablet 1 tablet, 3 times daily Continuous Blood Gluc Sensor (FreeStyle Yue 14 Day Sensor) misc fluorouracil (Efudex) 5 % cream Apply to directed areas on the scalp twice a day x 14 days. Dispense 30 day supply but only use for 14 days. insulin aspart, with niacinamide, (Fiasp FlexTouch) 100 UNIT/ML injection INJECT 15-18-20 UNITS ACCORDING TO MEAL SIZE PLUS ISS#2 ( EXPECT DAILY DOSE 70 UNITS) insulin glargine (LANTUS) 50 Units, Subcutaneous, Nightly insulin pen needle (B-D UF III MINI PEN NEEDLES) 31G x 5 mm misc USE FOUR TIMES A DAY insulin pen needle (B-D UF III MINI PEN NEEDLES) 31G x 5 mm misc 1 each, 4 times daily metFORMIN (GLUCOPHAGE) 1,000 mg, Oral, 2 times daily with meals montelukast (Singulair) 10 MG tablet 1 tablet, Nightly NovoLOG FLEXPEN 100 UNIT/ML pen See admin instructions pioglitazone (Actos) 30 MG tablet Ritalin 10 MG tablet 1 tablet on empty stomach Orally three times daily spironolactone (ALDACTONE) 25 mg, Oral, 2 times daily tamsulosin (Flomax) 0.4 MG 24 hr capsule 1 capsule, Every 24 hours ALLERGIES: No Known Allergies Past Medical History: Diagnosis Date Albuminuria Chronic kidney disease, stage 3a (HCC) (CMS/[facility]) Current use of insulin ([facility]) Dietary counseling and surveillance 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1985 [place] Obesity with body mass index (BMI) of 30.0 to 39.9 Personal history of other medical treatment Hx oxycodone post op Type 2 diabetes mellitus with other diabetic neurological complication ([facility]) Vitamin D deficiency, unspecified Past Surgical History: Procedure Laterality Date ANKLE SURGERY Left CERVIX SURGERY TOTAL KNEE ARTHROPLASTY Right REVIEW OF SYMPTOMS: 14 POINT OF SYSTEM REVIEWED AND NEGATIVE OBJECTIVE: Constitutional: Afebrile @ home; no weakness or night sweats SKIN: No change in skin color; no itching, rash or lesions; no hair loss; HEENT: No HAs or injury; no dizziness; No difficulty with vision; no eye pain, discharge or lesions; no hearing loss or difficulty; no nasal discharge, NECK: No pain, limitation of motion, lumps or swollen glands RESP: No cough, wheezing or difficulty breathing. No CP with breathing; CARDIO: No CP , SOB or fatigue, No edema, palpitations or dyspnea with exertion GI: No N/V/D or abd. pain; good appetite with no recent change. No heart burn, liver or gallbladderdisease; no rectal bleeding or pain : No urinary pain , frequency or odor. MUSCULOSKELETAL: No muscle pain or cramps; no extremity weakness.No joint pain, stiffness, swellingor limitation of movement NEUROLOGY: No H/O seizures, stroke or fainting. No weakness, tremors. Hematology: No bleeding problems or excessive bruising ENDOCRINE: No increase in hunger, thirst or urination; admits compliance to medical management plan Feet: numbness tingling yes , ulcers or skin break no Lab Results Component Value Date HGBA1C 8.6 09/13/2024 HGBA1C 8.7 H 01/12/2024 Lab Results Component Value Date GLU 199 09/13/2024 GLU 184 07/14/2021 GLU 318 (H) 04/28/2018 Visit Vitals BP 124/80 Pulse 77 Resp 16 Ht 5' 6 Wt 219 lb BMI 35.35 kg/m Smoking Status Former BSA 2.15 m ASSESSMENT AND PLAN: Assessment/Plan Diagnoses and all orders for this visit: Type 2 diabetes mellitus with stage 3a chronic kidney disease, with long-term current use of insulin ([facility]) ([facility]) - POCT glycosylated hemoglobin (Hb A1C) docked device - POCT glucose manually resulted - metFORMIN (Glucophage) 1000 MG tablet; Take 1 tablet (1,000 mg) by mouth in the morning and 1 tablet (1,000 mg) in the evening. Take with meals. Continue with Lantus 50 fiasp 10-12-15 according to meal size plus scale 2., metformin 1000 twice aday, Actos 30 mg once a day. Microalbuminuria Vitamin D deficiency Insulin long-term use ([facility]) Stage 3b chronic kidney disease (HCC) ([facility]) Class 2 severe obesity due to excess calories with serious comorbidity and body mass index (BMI) of35.0 to 35.9 in adult ([facility]) Diet and exercise reviewed with the patient Follow up in about 4 months (around 01/11/2025). documented in this [facility]01-13-2025 Evaluation note* Diagnosis Type 2 diabetes mellitus with stage 3a chronic kidney disease, with long-term current use of insulin ([facility]) ([facility])- Primary Microalbuminuria Proteinuria Vitamin D deficiency Insulin long-term use ([facility]) Encounter for long-term (current) use of insulin Stage 3b chronic kidney disease ([facility]) ([facility]) Class 2 severe obesity due to excess calories with serious comorbidity and body mass index (BMI) of 35.0 to 35.9 in adult ([facility]) documented in this encounter [facility] [id number] Telephone encounter Note* Telephone Encounter - Christopher Lucas - 07/26/2024 3:22 PM EST Jose Juan Ovalle called and said we sent diabetic shoe paperwork to Dr Baker but it needed to go to [employer] [phone]. tHANKS! [facility] [id number] Miscellaneous Notes* Telephone Encounter - Christopher Lucas - 07/26/2024 3:22 PM EST Jose Juan Ovalle called and said we sent diabetic shoe paperwork to Dr Baker but it needed to go to [employer] [phone]. tHANKS! documented in this encounterSSM [facility] CenterLpphunijoa05-40-1234 Telephone encounter Note* Telephone Encounter - Christopher Lucas - 06/14/2024 11:25 AM EDT Pt states wherever we sent diabetic shoe paperwork to is not in network, please resend to [phone] call [phone] for questions. Thank you! [facility] [id number] Miscellaneous Notes* Telephone Encounter - Christopher Lucas - 06/14/2024 11:25 AM EDT Pt states wherever we sent diabetic shoe paperwork to is not in network, please resend to [phone] call [phone] for questions. Thank you! documented in this encounterSSM DePaul Health [id number] History of Present illness Narrative* Shay Baker, NIECY - 05/27/2024 4:00 PM EDT Patient: Jose Juan Alvares : 1940 PCP: No primary care provider on file. SUBJECTIVE This is a 83 y.o. male that presents today for follow up of ulcer to the left ankle region.. Patient denies n/f/v/c. 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 Rosita Duong Personal history of other medical treatment Hx oxycodone post op Medications: Current Outpatient Medications: B-D UF III MINI PEN NEEDLES 31G X 5 MM misc, , Disp: , Rfl: collagenase (Santyl) 250 UNIT/GM ointment, Apply topically Daily, Disp: 30 g, Rfl: 0 Continuous Blood Gluc Sensor (FreeStyle Yue 14 Day Sensor) misc, , Disp: , Rfl: Fiasp FlexTouch 100 UNIT/ML injection, Inject under the skin See administration instructions [id number] UNITS ACCORDING TO MEAL SIZE PLUS ISS#2 ( EXPECT DAILY DOSE 70 UNITS), Disp: , Rfl: fluorouracil (Efudex) 5 % cream, Apply to directed areas on the scalp twice a day x 14 days. Dispense 30 day supply but only use for 14 days., Disp: 40 g, Rfl: 0 insulin glargine (Lantus) 100 UNIT/ML injection, 50 Units at bedtime, Disp: , Rfl: NovoLOG FLEXPEN 100 UNIT/ML pen, See administration instructions Sliding scale, Disp: , Rfl: pioglitazone (Actos) 30 MG tablet, , Disp: , Rfl: Ritalin 10 MG tablet, 1 tablet on empty stomach Orally three times daily, Disp: , Rfl: spironolactone (Aldactone) 25 MG tablet, Take 1 tablet (25 mg) by mouth in the morning and 1 tablet(25 mg) before bedtime., Disp: 60 tablet, Rfl: 0 tamsulosin (Flomax) 0.4 MG 24 hr capsule, 1 capsule 1 (one) time each day at the same time, Disp: ,Rfl: Social History: Social History Socioeconomic History Marital status: Spouse name: Not on file Number of children: Not on file Years of education: Not on file Highest education level: Not on file Occupational History Not on file Tobacco Use Smoking status: Former Types: Cigarettes Smokeless tobacco: Never Tobacco comments: Last smoked : > 20 years Vaping Use Vaping status: Never Used Substance and Sexual Activity Alcohol use: Yes Alcohol/week: 4.0 - 8.0 standard drinks of alcohol Types: 4 - 8 Standard drinks or equivalent per week Drug use: Never Sexual activity: Not on file Other Topics Concern Not on file Social History Narrative Not on file Social Determinants of Health Financial Resource Strain: Not on file Food Insecurity: Not on file Transportation Needs: Not on file Physical Activity: Not on file Stress: Not on file Social Connections: Not on file Intimate Partner Violence: Not on file Housing Stability: Not on file ROS: General: denies fever, chills, fatigue, malaise GI: denies loose or watery stool on antibiotic OBJECTIVE LE EXAM: DERM: Elongated thick yellow crumbly nails digits 1 through 10. Negative hair growth with thin shiny atrophic skin bilaterally. 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 Cellulitis of left foot 2. Diabetes 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, without long-term current use of insulin ([facility]) 3. Foot ulcer, left, with fat layer exposed ([facility]) 4. Venous insufficiency 5. Hav (hallux abducto valgus), left 6. Hav (hallux abducto valgus), right PLAN Application today of multilayer compressive dressing for swelling and edema to the foot and ankle region. Dressing consisting of Webril and Anant wrap today. Today's procedure is a staged procedure andpatient may need further procedures in the future. Visit spent with patient education on condition and treatment of condition. Discussed patient importance of diabetic shoe gear and prescription for diabetic shoes due to irritation at times from the HAV deformities bilaterally and that he would like to have prescription today and was given prescription that will be faxed to his primary care provider Shay Baker DPM documented in this encounterSSM DePaul Health [id number] History of Present illness Narrative* Shay Baker DPM - 05/13/2024 1:40 PM EDT Patient: Jose Juan Alvares : 1940 PCP: No primary care provider on file. SUBJECTIVE This is a 83 y.o. male that presents today for follow up of ulcer to the left ankle region.. He hasbeen applying treatment by primary care provider with some improvement but states it is very painful but denies nausea vomiting chills. 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 Rosita Duong Personal history of other medical treatment Hx oxycodone post op Medications: Current Outpatient Medications: B-D UF III MINI PEN NEEDLES 31G X 5 MM mis, , Disp: , Rfl: collagenase (Santyl) 250 UNIT/GM ointment, Apply topically Daily, Disp: 30 g, Rfl: 0 Continuous Blood Gluc Sensor (FreeStyle Yue 14 Day Sensor) mis, , Disp: , Rfl: Fiasp FlexTouch 100 UNIT/ML injection, Inject under the skin See administration instructions [id number] UNITS ACCORDING TO MEAL SIZE PLUS ISS#2 ( EXPECT DAILY DOSE 70 UNITS), Disp: , Rfl: fluorouracil (Efudex) 5 % cream, Apply to directed areas on the scalp twice a day x 14 days. Dispense 30 day supply but only use for 14 days., Disp: 40 g, Rfl: 0 insulin glargine (Lantus) 100 UNIT/ML injection, 50 Units at bedtime, Disp: , Rfl: NovoLOG FLEXPEN 100 UNIT/ML pen, See administration instructions Sliding scale, Disp: , Rfl: pioglitazone (Actos) 30 MG tablet, , Disp: , Rfl: Ritalin 10 MG tablet, 1 tablet on empty stomach Orally three times daily, Disp: , Rfl: spironolactone (Aldactone) 25 MG tablet, Take 1 tablet (25 mg) by mouth in the morning and 1 tablet(25 mg) before bedtime., Disp: 60 tablet, Rfl: 0 tamsulosin (Flomax) 0.4 MG 24 hr capsule, 1 capsule 1 (one) time each day at the same time, Disp: ,Rfl: Social History: Social History Socioeconomic History Marital status: Spouse name: Not on file Number of children: Not on file Years of education: Not on file Highest education level: Not on file Occupational History Not on file Tobacco Use Smoking status: Former Types: Cigarettes Smokeless tobacco: Never Tobacco comments: Last smoked : > 20 years Vaping Use Vaping status: Never Used Substance and Sexual Activity Alcohol use: Yes Alcohol/week: 4.0 - 8.0 standard drinks of alcohol Types: 4 - 8 Standard drinks or equivalent per week Drug use: Never Sexual activity: Not on file Other Topics Concern Not on file Social History Narrative Not on file Social Determinants of Health Financial Resource Strain: Not on file Food Insecurity: Not on file Transportation Needs: Not on file Physical Activity: Not on file Stress: Not on file Social Connections: Not on file Intimate Partner Violence: Not on file Housing Stability: Not on file ROS: General: denies fever, chills, fatigue, malaise OBJECTIVE LE EXAM: DERM: Elongated thick yellow crumbly nails digits 1 through 10. Negative hair growth with thin shiny atrophic skin bilaterally. Plus one pitting edema to bilateral ankles medial left ankle region hasa 1.0 cm x 1.0 cm 0.2 cm subcutaneous thickness depth ulceration with surrounding erythema and slight serous drainage with diminished fibrous slough present VASC: Positive DP and negative PT pedal pulses NEURO: 5.07 [place] monofilament test intact to digits and forefoot bilaterally 125Hz tuning fork diminished to 1st MPJ bilaterally ORTHO: Positive pain on palpation to nails 1 through 10 ASSESSMENT 1. Diabetes 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, without long-term current use of insulin ([facility]) 2. Foot ulcer, left, with fat layer exposed ([facility]) 3. Venous insufficiency 4. Cellulitis of left foot PLAN Application today of multilayer compressive dressing for swelling and edema to the foot and ankle region. Dressing consisting of Webril and Anant wrap today. Today's procedure is a staged procedure andpatient may need further procedures in the future. Visit spent with patient education on condition and treatment of condition. Sharp debridement with 15 blade of subcutaneous ulceration to left foot with active bleeding noted and removal and excision of fibrotic and necrotic tissue to wound and DSD applied with neosporin. Ptto continue with Santyl every other day at this point with compression Patient placed on oral antibiotics into contact Podiatry if any symptoms worsen report to BIRDEI Baker DPM documented in this encounterSSM DePaul Health [id number] History of Present illness Narrative* Shay Baker DPM - 04/29/2024 1:00 PM EDT Patient: Jose Juan Alvares : 1940 PCP: No primary care provider on file. SUBJECTIVE This is a 83 y.o. male that presents today for follow up of ulcer to the left ankle region.. He hasbeen applying treatment by primary care provider with some improvement but states it is very painful but denies nausea vomiting chills. 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 Rosita Duong Personal history of other medical treatment Hx oxycodone post op Medications: Current Outpatient Medications: B-D UF III MINI PEN NEEDLES 31G X 5 MM mis, , Disp: , Rfl: collagenase (Santyl) 250 UNIT/GM ointment, Apply topically Daily, Disp: 30 g, Rfl: 0 Continuous Blood Gluc Sensor (FreeStyle Yue 14 Day Sensor) [facility] [place], , Disp: , Rfl: Fiasp FlexTouch 100 UNIT/ML injection, Inject under the skin See administration instructions [id number] UNITS ACCORDING TO MEAL SIZE PLUS ISS#2 ( EXPECT DAILY DOSE 70 UNITS), Disp: , Rfl: fluorouracil (Efudex) 5 % cream, Apply to directed areas on the scalp twice a day x 14 days. Dispense 30 day supply but only use for 14 days., Disp: 40 g, Rfl: 0 insulin glargine (Lantus) 100 UNIT/ML injection, 50 Units at bedtime, Disp: , Rfl: NovoLOG FLEXPEN 100 UNIT/ML pen, See administration instructions Sliding scale, Disp: , Rfl: pioglitazone (Actos) 30 MG tablet, , Disp: , Rfl: Ritalin 10 MG tablet, 1 tablet on empty stomach Orally three times daily, Disp: , Rfl: spironolactone (Aldactone) 25 MG tablet, Take 1 tablet (25 mg) by mouth in the morning and 1 tablet(25 mg) before bedtime., Disp: 60 tablet, Rfl: 0 tamsulosin (Flomax) 0.4 MG 24 hr capsule, 1 capsule 1 (one) time each day at the same time, Disp: ,Rfl: Social History: Social History Socioeconomic History Marital status: Spouse name: Not on file Number of children: Not on file Years of education: Not on file Highest education level: Not on file Occupational History Not on file Tobacco Use Smoking status: Former Types: Cigarettes Smokeless tobacco: Never Tobacco comments: Last smoked : > 20 years Vaping Use Vaping status: Never Used Substance and Sexual Activity Alcohol use: Yes Alcohol/week: 4.0 - 8.0 standard drinks of alcohol Types: 4 - 8 Standard drinks or equivalent per week Drug use: Never Sexual activity: Not on file Other Topics Concern Not on file Social History Narrative Not on file Social Determinants of Health Financial Resource Strain: Not on file Food Insecurity: Not on file Transportation Needs: Not on file Physical Activity: Not on file Stress: Not on file Social Connections: Not on file Intimate Partner Violence: Not on file Housing Stability: Not on file ROS: General: denies fever, chills, fatigue, malaise Gastrointestinal: denies abdominal pain, ulcers, or changes in appetite or bowel habits Musculoskeletal: Positive history of generalized arthritis, denies loss of strength, pain to hip, knees, back Cardiovascular: denies CP, palpitations, irregular rhythms OBJECTIVE LE EXAM: DERM: Elongated thick yellow crumbly nails digits 1 through 10. Negative hair growth with thin shiny atrophic skin bilaterally. Plus one pitting edema to bilateral ankles medial left ankle region hasa 1.5 cm x 1.0 cm 0.2 cm subcutaneous thickness depth ulceration with negative erythema and slight serous drainage with fibrous slough present VASC: Positive DP and negative PT pedal pulses NEURO: 5.07 [place] monofilament test intact to digits and forefoot bilaterally 125Hz tuning fork diminished to 1st MPJ bilaterally ORTHO: Positive pain on palpation to nails 1 through 10 ASSESSMENT 1. Diabetes 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, without long-term current use of insulin ([facility]) 2. Foot ulcer, left, with fat layer exposed ([facility]) 3. Venous insufficiency PLAN Application today of multilayer compressive dressing for swelling and edema to the foot and ankle region. Dressing consisting of Webril and Anant wrap today. Today's procedure is a staged procedure andpatient may need further procedures in the future. Visit spent with patient education on condition and treatment of condition. Sharp debridement with 15 blade of subcutaneous ulceration to left foot with active bleeding noted and removal and excision of fibrotic and necrotic tissue to wound and DSD applied with neosporin. Ptto continue with Santyl daily with compression Shay Baker DPM documented in this encounterSSM DePaul Health [id number] History of Present illness Narrative* Arun Bolton MD - 10/01/2023 8:00 AM EST Patient ID: Jose Juan Alvares is a 83 y.o. male who presents for: Upper Respiratory Infection Patient complains of symptoms of a URI. Symptoms include congestion, nasal congestion, productive cough with yellow and green colored sputum, and shortness of breath. Onset of symptoms was a few weeks ago, and has been gradually worsening since that time. Treatment to date: theraflu which has helped . Review of Systems Constitutional: Negative for chills and fever. HENT: Positive for congestion. Negative for ear pain, sinus pressure, sinus pain and sore throat. Respiratory: Positive for cough. Negative for shortness of breath and wheezing. Neurological: Positive for headaches. Negative for light-headedness. Objective In general the patient is pleasant and in no acute distress. Bilateral ears, canals are within normal limits. TMs are transparent and somewhat retracted. No fluid layer. Bilateral nares demonstrate inflamed mucosa. Rather nasal sounding, mildly tender to palpation across the maxillary sinuses Oropharynx has moist mucosa there is no specific evidence of thrush. There is mild erythema of the pharynx. There is a grayish colored postnasal drip. Shoddy bilateral anterior cervical adenopathy. No signs of respiratory distress. Patient is speaking full sentences. There are symmetrical breath sounds That are coarse in nature. No rhonchi or rales are appreciated. No wheezes. Skin is warm and dry Visit Vitals Pulse 94 Ht 5' 6 Wt 226 lb SpO2 98% BMI 36.48 kg/m Smoking Status Former BSA 2.19 m No Known Allergies Current Outpatient Medications Medication Instructions B-D UF III MINI PEN NEEDLES 31G X 5 MM [facility] Continuous Blood Gluc Sensor (FreeStyle Yue 14 Day Sensor) [facility] insulin glargine (LANTUS) 50 Units, Nightly NovoLOG FLEXPEN 100 UNIT/ML pen See admin instructions, Sliding scale pioglitazone (Actos) 30 MG tablet Ritalin 10 MG tablet 1 tablet on empty stomach Orally three times daily tamsulosin (Flomax) 0.4 MG 24 hr capsule 1 capsule, Every 24 hours Assessment/Plan Diagnoses and all orders for this visit: Diagnoses and all orders for this visit: Bronchitis - cefuroxime (Ceftin) 500 MG tablet; Take 1 tablet (500 mg) by mouth in the morning and 1 tablet (500 mg) before bedtime. Do all this for 10 days. I do believe this started out with a viral upper respiratory infection. He certainly has some clinical signs of bronchitis and my guess is he may even have some mild COPD that is previously been undiagnosed. I do suspect he could have some mild sinusitis also. In prescribing a new medication consideration of the following encompasses moderate decision making: the current prescriptions and supplements, the current allergies and medication intolerances, the current medical conditions, and potential drug interactions. Drug interaction screening is reviewed and there are moderate to major severity ratings to consider during prescription drug management. Ifthe new medication is considered a controlled substance, then the OARRS and NARX scores are obtained and reviewed. Risks, benefits, and reason for starting their medication were discussed. The patient was given a chance to ask questions today and all questions were answered. The patient is to contact us, preferably by using the patient portal, or call if any other questions arise or ifany problems occur with the adjustment in their medication. documented in this encounterSSM DePaul Health [id number] Evaluation note* Encounter Date Diagnosis Assessment Notes Treatment Notes Treatment Clinical Notes Oct, Closed nondisplaced fracture of proximal phalanx of right ring finger, initial encounter (ICD-10 - S62.644A) Patient has sustained a fracture. This is stable, and we will treat nonoperatively at this time. Instructed on gentle motion of the fingers. Patient placed into a finger splint, along with direction of use as needed. Advised patient ice and elevate to decrease pain and swelling. Activity as tolerated. Call with any questions or concerns. Oct, Right hand pain (ICD-10 - M79.641) [facility] Other 10-19-2021 NotePROCEDURE: XR TIB_FIB LT 2V HISTORY: Osteomyelitis ; large abrasion to portillo since scraping on desk one week ago COMPARISON: None. FINDINGS: BONES:No fracture, dislocation, periosteal reaction, or subcortical lucency. Mild degenerative changes of the knee joint. Prior mechanical repair of the medial malleolus. SOFT TISSUES:Mild anterior soft tissue thickening; no radiopaque foreign bodies. EFFUSION:None visible. OTHER: Negative. IMPRESSION: 1. No evidence of osteomyelitis. 2. No radiopaque foreign body. Electronically authenticated by: HARLEEN KWAN Date: 2021-06-19 14:24[facility]* Diagnosis Cervical dystonia Spasmodic torticollis documented in this encounter [employer] Phone: evaluation note* Diagnosis Cervical dystonia Spasmodic torticollis documented in this encounter [employer] Phone: evaluation note* Diagnosis Cervical dystonia Spasmodic torticollis documented in this encounter [employer] Phone: evaluation note* Diagnosis Cervical dystonia Spasmodic torticollis documented in this encounter [employer] Phone: evaluation note* Diagnosis Bronchitis- Primary Bronchitis, not specified as acute or chronic documented in this encounter [facility]* Diagnosis Diabetes 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, without long-term current use of insulin (CMS/HCC)- Primary Pain due to onychomycosis of toenails of both feet Hav (hallux abducto valgus), left Hav (hallux abducto valgus), right Foot ulcer, left, with fat layer exposed (CMS/HCC) Venous insufficiency Unspecified venous (peripheral) insufficiency documented in [facility] encounter [facility]* Diagnosis Cellulitis of left foot- Primary Diabetes 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, without long-term current use of insulin (CMS/HCC) Foot ulcer, left, with fat layer exposed (CMS/HCC) Venous insufficiency Unspecified venous (peripheral)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 Referring Physician Dermatology 03/18/24 Genna Yañez MD [address] [place] [address] Referring Physician Endocrinology 03/18/24 Appeals Rn Relationship Specialty Start Date End Date Arun Bolton MD [address] [place] [address] (Fax) PCP - [employer] 10/02/22 Arun Boltno MD [address] [place] [address] (Fax) PCP - [employer] 11/30/22 Unallocated, MD [facility] [place] [address] PCP - General Family Medicine 05/27/24 Gladis Cline MD [address] [place] [address] Referring Physician Dermatology 03/18/24 Genna Yañez MD [address] [place] [address] Referring Physician Endocrinology 03/18/24 Appeals Rn Relationship Specialty Start Date End Date Arun Bolton MD [address] [place] [address] (Fax) PCP - [employer] 10/02/22 Arun Bolton MD [address] [place] [address] (Fax) PCP - [employer]oted 11/30/22 Unallocated, Noms MD [address] [place] [address] PCP - General Family Medicine 05/27/24 Gladis Cline MD [address] [place] [address] Referring Physician Dermatology 03/18/24 Genna Yañez MD [address] [place] [address] Referring Physician Endocrinology 03/18/24 Appeals Rn Relationship Specialty Start Date End Date Arun Bolton MD [address] [place] [address] (Fax) PCP - [employer] 10/02/22 Arun Bolton MD [address] [place] [address] (Fax) PCP - [employer] 11/30/22 UnallocatGuillermo rodriguez MD [address] [place] [address] PCP - General Family Medicine 05/27/24 Gladis Cline MD [address] [place] [address] Referring Physician Dermatology 03/18/24 Genna Yañez MD [address] [place] [address] Referring Physician Endocrinology 03/18/24 Appeals Rn Relationship Specialty Start Date End Date Arun Bolton MD [address] [place] [address] (Fax) PCP - [employer] 10/02/22 Arun Bolton MD [address] [place] [address] PCP - Devoted 11/30/22 Unallocated, Guillermo Thurman MD [address] [place] [address] PCP - General Family Medicine 05/27/24 Gladis Cline MD [address] [place] [address] Referring Physician Dermatology 03/18/24 Genna Yañez MD [address] [place] [address] Referring Physician Endocrinology 03/18/24 Appeals Rn Relationship Specialty Start Date End Date Arun Bolton MD [address] [place] [address] (Fax) PCP - Humana 10/02/22 Arun Bolton MD [address] [place] [address] (Fax) PCP - Devoted 11/30/22 UnallocatedGuillermo MD [address] [place] [address] PCP - General Family Medicine 05/27/24 Gladis Cline MD [address] [place] [address] Referring Physician Dermatology 03/18/24 Genna Yañez MD [facility] [place] [address] Referring Physician Endocrinology 03/18/24 Appeals Rn Relationship Specialty Start Date End Date Arun Bolton MD [address] [place] [address] (Fax) PCP - Humana 10/02/22 Arun Bolton MD [address] [place] [address] (Fax) PCP - Devoted 11/30/22 UnallocatedGuillermo MD [address] [place] [address] PCP - General Family Medicine 05/27/24 Gladis Cline MD [address] [place] [address] Referring Physician Dermatology 03/18/24 Genna Yañez MD [address] [place] [address] Referring Physician Endocrinology 03/18/24 Appeals Rn Relationship Specialty Start Date End Date Arun Bolton MD [address] [place] [address] (Fax) PCP - Humana 10/02/22 Arun Bolton MD [address] [place] [address] (Fax) PCP - Devoted 11/30/22 Unallocated, Guillermo Thurman MD [address] [place] [address] PCP - General Family Medicine 05/27/24 Gladis Cline MD [address] [place] [address] Referring Physician Dermatology 03/18/24 Genna Yañez MD [address] [place] [address] Referring Physician Endocrinology 03/18/24 Appeals Rn Relationship Specialty Start Date End Date Arun Bolton MD [address] [place] [address] (Fax) PCP - Hum[employer] 10/02/22 Arun Bolton MD [address] [place] [address] (Fax) PCP - Devoted 11/30/22 Unallocated, Guillermo Thurman MD [address] [place] [address] PCP - General Family Medicine 05/27/24 Gladis Cline MD [address] [place] [address] Referring Physician Dermatology 03/18/24 Genna Yañez MD [address] [place] [address] Referring Physician Endocrinology 03/18/24 Appeals Rn Relationship Specialty Start Date End Date Arun Bolton MD [address] [place] [address] (Fax) PCP - Devoted 11/30/22 Unallocated, Guillermo Thurman MD [address] [place] [address] PCP - General Family Medicine 05/27/24 Gladis Cline MD [address] [place] [address] Referring Physician Dermatology 03/18/24 Genna Yañez MD [address] [place] [address] Referring Physician Endocrinology 03/18/24 Appeals Rn Relationship Specialty Start Date End Date Arun Bolton MD [address] [place] [address] (Fax) PCP - Devoted 11/30/22 Unallocated, Guillermo Thurman MD [address] [address] PCP - General Family Medicine 05/27/24 Gladis Cline MD [address] [place] [address] Referring Physician Dermatology 03/18/24 Genna Yañez MD [address] [place] [address] Referring Physician Endocrinology 03/18/24 Appeals Rn Relationship Specialty Start Date End Date Arun Bolton MD [address] [place] [address] (Fax) PCP - Devoted 11/30/22 Unallocated, Guillermo Thurman MD [address] [place], [place] [address] [address] PCP - General Family Medicine 05/27/24 Gladis Cline MD [address] [place] [address] Referring Physician Dermatology 03/18/24 Genna Yañez MD [address] [place] [address] Referring Physician Endocrinology 03/18/24 Appeals Rn Relationship Specialty Start Date End Date Arun Bolton MD [address] [place] [address] (Fax) PCP - Devoted 11/30/22 Unallocated, Guillermo Thurman MD [facility] [place] [address] PCP - General Family Medicine 05/27/24 Gladis Cline MD [address] [place] [address] Referring Physician Dermatology 03/18/24 Genna Yañez MD [address] [place] [address] Referring Physician Endocrinology 03/18/24 Appeals Rn Relationship Specialty Start Date End Date Arun Bolton MD [address] [place] [address] (Fax) PCP - Devoted 11/30/22 Unallocated, Guillermo Thurman MD [address] [place] [address] PCP - General Family Medicine 05/27/24 Gladis Cline MD [address] [place] [address] Referring Physician Dermatology 03/18/24 Genna Yañez MD [address] [place] [address] Referring Physician Endocrinology 03/18/24 Appeals Rn Relationship Specialty Start Date End Date Arun Bolton MD [address] [place] [address] (Fax) PCP - Devoted 11/30/22 UnallocatedGuillermo MD [address] [address] PCP - General Family Medicine 05/27/24 Gladis Cline MD [address] [place] [address] Referring Physician Dermatology 03/18/24 Genna Yañez MD [address] [place] [address] Referring Physician Endocrinology 03/18/24 Appeals Rn Relationship Specialty Start Date End Date Arun Bolton MD [address] [place] [address] (Fax) PCP - Devoted 11/30/22 Unallocated, Guillermo Thurman MD [address] [place] [address] PCP - General Family Medicine 05/27/24 Gladis Cline MD [address] [place] [address] Referring Physician Dermatology 03/18/24 Genna Yañez MD [address] [place] [address] Referring Physician Endocrinology 03/18/24 Appeals Rn Relationship Specialty Start Date End Date Arun Bolton MD (Fax) PCP - General 01/08/22 Appeals Rn Relationship Specialty Start Date End Date Arun Bolton MD [address] [place] [address] (Fax) PCP - Devoted 11/30/22 Unallocated, [place] [address] [place] [address] PCP - General Family Medicine 05/27/24 Gladis Cline MD [address] [place] [address] Referring Physician Dermatology 03/18/24 Genna Yañez MD [address] [place] [address] Referring Physician Endocrinology 03/18/24 Appeals Rn Relationship Specialty Start Date End Date Arun Bolton MD [address] [place] [address] (Fax) PCP - Devoted 11/30/22 Unallocated, Guillermo Thurman MD [facility] [place] [address] PCP - General Family Medicine 05/27/24 Gladis Cline MD [address] [place] [address] Referring Physician Dermatology 03/18/24 Genna Yañez MD [address] [place] [address] Referring Physician Endocrinology 03/18/24 Appeals Rn Relationship Specialty Start Date End Date Arun Bolton MD [address] [place] [address] PCP - Devoted 11/30/22 Unallocated, MD Shaista Masters [address] [address] PCP - General Family Medicine 05/27/24 Gladis Cline MD [address] [place] [address] Referring Physician Dermatology 03/18/24 Genna Yañez MD [address] [place] [address] Referring Physician Endocrinology 03/18/24 Appeals Rn Relationship Specialty Start Date End Date Arun Bolton MD [address] [place] [address] PCP - Devoted 11/30/22 Unallocated, Noms Olman, [address] [place], [place] [address] PCP - General Family Medicine 05/27/24 Gladis Cline MD [address] [place] [address] Referring Physician Dermatology 03/18/24 Genna Yañez MD [address] [place] [address] Referring Physician Endocrinology 03/18/24 Scheduled Active and Recently Administ ered Medications (unrecognized section and content) Medication Order 03/24/2025 03/25/2025 03/26/2025 iohexol (OMNIPaque) 350 mg iodine/mL solution 100 mL (COMPLETED) 100 mL, intravenous, Once in imaging, Starting on 03/26/25 at 1212, For 1 dose 1224 (Given - Provid er: Rivka Bunch) FOR RECORDS PERTAINING TO PATIENTS WHO ARE OR HAVE BEEN ENROLLED IN A CHEMICAL DEPENDENCY/SUBSTANCEABUSE PROGRAM, SOME INFORMATION MAY BE OMITTED. This clinical summary was aggregated from multiple sources. Caution should be exercised in using it in the provision of clinical care. This summary normalizes information from multiple sources, and as a consequence, information in this document may materially change the coding, format and clinical context of patient data. In addition, data may be omitted in some cases. CLINICAL DECISIONS SHOULD BE BASED ON THE PRIMARY CLINICAL RECORDS. [employer] provides no warranty or guarantee of the accuracy or completeness of information in this document.
--- NOTE | 2025-05-06 11:25 | CT_ITS ---
The [address] [address] Patient Name: JELLY ALVARES MRN: [id number] date: 1940 Sex: M Assigned Patient Location: ER Current Patient Location: Accession/Order Number: [id number] Exam Date: 05/06/2025 12:15 Report Date: 05/06/2025 12:43 At the request of: ROBBIN GILLILAND DO Procedure: CT abdomen pelvis wo/w con CT ABDOMEN AND PELVIS WITHOUT AND WITH INTRAVENOUS CONTRAST COMPARISON: 03/27/2022 CLINICAL DATA: Left lower quadrant pain. Spiral images were obtained through the abdomen and pelvis before and after intravenous administration of [address] exam was performed using one or more following dose reduction techniques: Automated exposure control, adjustment of the mA and/or kV according to patient size, or use of iterative reconstruction technique. Limited cuts through the lung bases show dependent atelectasis. There is minor perinephric fibrofatty stranding. The kidneys are normal in size, position and contour. Precontrast, no renal, ureteral or bladder stones are seen. Following contrast administration, there are symmetric renal nephrograms. No hydronephrosis is noted. There is a tiny lower pole left renal cyst. No calcified gallstones are identified. No intrahepatic masses are seen. The spleen, pancreas and adrenal glands show no acute findings. There is atherosclerotic plaque at the aorta and iliac arteries. There is also moderate plaque at the proximal renal arteries and origin of the superior mesenteric and celiac arteries. There are similar small retroperitoneal lymph nodes. No ascites is seen. No dilated small bowel loops are seen. Stool is present throughout the colon. Subtle dextroscoliotic curvature as well as multilevel degenerative changes are present at the spine with associated spinal stenosis. Images through the pelvis show normal appendix. There are normal caliber small bowel loops. Stool is visualized at the distal colon. No diverticular disease is identified. There is a tiny umbilical hernia containing fat. The prostate is within normal limits for size. No urinary bladder abnormalities are noted. There is no ascites. CT/CT abdomen pelvis wo/w con IMPRESSION: NO OBSTRUCTIVE UROPATHY OR STONE DISEASE. NO BOWEL OBSTRUCTION. MILD TO MODERATE COLONIC STOOL. NO ACUTE FINDINGS. Impression dictated by: Saritha Abebe M.D. 05/06/2025 12:43 PM Dictation Location: [place] [address] Electronically authenticated by: [id number] Y Date: 05/06/2025 12:43
[2025-05-06 11:49] LABS: Hematocrit 34.0 % (42.0-54.0); Hemoglobin 11.5 g/dL (14.0-18.0); Immature Granulocytes Abs Auto 0.02 10^3/uL (0.00-0.03); Immature Granulocytes Pct Auto 0.3 % (0.0-0.5); Lymphocytes Absolute Auto 1.7 10^3/uL (1.2-3.8); Mean Corpuscular HGB Conc 33.8 g/dL (29.9-35.2); Mean Corpuscular Hemoglobin 31.7 pg (25.9-34.0); Mean Corpuscular Volume 93.7 fL (80.0-94.0); Platelet Count 185 10^3/uL (150-450); Red Blood Count 3.63 10^6/uL (4.70-6.10); White Blood Count 6.1 10^3/uL (4.0-11.0)
[2025-05-06 12:00] LABS: Alanine Aminotransferase 23 U/L (16-63); Albumin Globulin Ratio 1.0; Albumin Level 3.5 g/dL (3.4-5.0); Alkaline Phosphatase 44 U/L (46-116); Anion Gap 14.0; Aspartate Amino Transferase 19 U/L (15-37); Blood Urea Nitrogen 24.0 mg/dL (7.0-18.0); Calcium 8.5 mg/dL (8.5-10.1); Carbon Dioxide 24.8 mmol/L (21.0-32.0); Chloride 105 mmol/L (98-107); Estimated GFR (African America >60 (>=60 mL/min/1.73m^2); Estimated GFR (Non-African Ame 55 (>=60 mL/min/1.73m^2); Globulin 3.4 g/dL; Glucose 196 mg/dL (74-106); Potassium 3.8 mmol/L (3.5-5.1); Sodium 140 mmol/L (136-145); Total Protein 6.9 g/dL (6.4-8.2)
[2025-05-06 13:07] LABS: Glucose Urine UA 250 mg/dL (NEGATIVE)
[2025-05-06 13:13] LABS: Crystals Seen? None Seen #/HPF (None Seen)
[2025-05-06 13:14] LABS: Cast Seen? NONE SEEN #/LPF (NONE SEEN); Urine Culture Indicated NO
--- NOTE | 2025-05-06 18:52 | ED.GENADUL1 ---
HPI HPI - General Adult General Chief complaint: Abdominal Pain Stated complaint: L FLANK PAIN Time Seen by Provider: 05/06/25 11:01 Source: patient Mode of arrival: walk-in Limitations: no limitations History of Present Illness HPI narrative: Patient is an 84 old male presenting to the emergency department for evaluation of left lower abdominal/flank pain. Patient states that he he woke up this morning, noticed pain in the left side of his lower abdomen/flank. He states the pain is coming and going, is currently rated a 4 out of 10 in pain. He has never had pain like this in the past. He denies any other associated symptoms such as constipation, diarrhea, nausea, vomiting. Denies history of kidney stones. No dysuria or hematuria. No fevers or chills. No chest pain or shortness of breath. Related Data Home Medications ?Medication ?Instructions ?Recorded ?Confirmed spironolactone 25 mg tablet 25 mg PO DAILY 03/10/24 03/10/24 Previous Rx's ?Medication ?Instructions ?Recorded albuterol sulfate 90 mcg/actuation 2 inh inhalation Q4H PRN shortness 03/10/24 aerosol inhaler of breath or wheezing #8.5 grams dexamethasone 4 mg tablet 4 mg PO BID 5 days #10 tabs 03/10/24 Allergies Allergy/AdvReac Type Severity Reaction Status Date / Time No Known Drug Allergies Allergy Verified 05/06/25 10:58 Opioid HPI Opioid Management Most Recent Opioid Data: Last Pain Scale 2 Today, 10:58 Review of Systems ROS Status of ROS 10 or more systems reviewed and unremarkable except as noted in history and below PFSH PFSH Social History Little interest or pleasure in doing things: not at all Feeling down, depressed, or hopeless: not at all Exam Narrative Exam Narrative: CONSTITUTIONAL: Well-appearing, answering questions and following commands appropriately SKIN: Was warm and dry. EYES: Sclerae white. EARS, NOSE, THROAT: Moist oral mucosa. RESPIRATORY: Clear to auscultation bilaterally, no wheezes, crackles, or stridor, no use of accessory muscles CARDIOVASCULAR: Normal rate and regular rhythm. There is no S3, S4, murmur, rub. GASTROINTESTINAL: Abdomen soft, nondistended, and nontender. No rebound tenderness or guarding. No CVA tenderness. MUSCULOSKELETAL: No peripheral edema. NEUROLOGIC: Patient is awake and alert. Facies were symmetrical. Constitutional Vital Signs, click to edit/add: Last Vital Signs Temp 97.5 F L 05/06/25 10:58 Pulse 94 H 05/06/25 10:58 Resp 18 05/06/25 10:58 BP 143/88 H 05/06/25 10:58 Pulse Ox 98 05/06/25 10:58 O2 Del Method Room Air 05/06/25 10:58 Course Vital Signs Vital signs: Vital Signs Temperature 97.5 F L 05/06/25 10:58 Pulse Rate 94 H 05/06/25 10:58 Respiratory Rate 18 05/06/25 10:58 Blood Pressure 143/88 H 05/06/25 10:58 Pulse Oximetry 98 05/06/25 10:58 Oxygen Delivery Method Room Air 05/06/25 10:58 Temperature 97.5 F L 05/06/25 10:58 Pulse Rate 94 H 05/06/25 10:58 Respiratory Rate 18 05/06/25 10:58 Blood Pressure 143/88 H 05/06/25 10:58 Pulse Oximetry 98 05/06/25 10:58 Oxygen Delivery Method Room Air 05/06/25 10:58 Medical Decision Making MDM Narrative Medical decision making narrative: Patient is an 84-year-old male presenting to the emergency department for evaluation of left-sided flank/lower abdominal pain that began this morning. His vital signs are within normal limits. He is afebrile and hemodynamically stable. He overall has a normal physical examination without abdominal tenderness. Differential diagnosis includes diverticulitis, nephrolithiasis, UTI, or other electrolyte/metabolic derangement. IV was established and laboratory studies were obtained. CT abdomen/pelvis with and without contrast was ordered. CT abdomen/pelvis independently reviewed and interpreted by myself and radiology demonstrated mild amount of colonic stool without acute findings. No nephrolithiasis. Laboratory studies were unremarkable. No significant electrolyte or metabolic derangement. No evidence of acute kidney injury. No significant anemia, leukocytosis, or thrombocytopenia. No transaminitis or hyperbilirubinemia. Troponin nonelevated. Urinalysis was negative. On reevaluation, patient states his symptoms are almost completely resolved. He feels comfortable being discharged home. Symptoms are likely related to constipation. Instructed follow-up with his PCP for further care. Return precautions were given including any new or concerning symptoms. Patient understands and agrees the plan. FINAL IMPRESSION: #Acute left-sided abdominal pain, likely constipation DISPOSITION: Discharged home CONDITION: Good Medical Records Medical records reviewed: Yes I reviewed the patient's medical records Lab Data Lab results reviewed: Yes I reviewed the patient's lab results Labs: Lab Results 05/06/25 05/06/25 Range/Units 11:05 12:50 WBC 6.1 (4.0-11.0) 10^3/uL RBC 3.63 L (4.70-6.10) 10^6/uL Hgb 11.5 L (14.0-18.0) g/dL Hct 34.0 L (42.0-54.0) % MCV 93.7 (80.0-94.0) fL MCH 31.7 (25.9-34.0) pg MCHC 33.8 (29.9-35.2) g/dL RDW 14.4 (11.0-15.0) % Plt Count 185 (150-450) 10^3/uL MPV 9.4 L (9.5-13.5) fL Neut % (Auto) 56.8 (43.0-75.0) % Lymph % (Auto) 27.4 (20.5-60.0) % [place] % (Auto) 9.4 (1.7-12.0) % Eos % (Auto) 5.6 (0.9-7.0) % Baso % (Auto) 0.5 (0.2-2.0) % Neut # (Auto) 3.4 (1.4-6.5) 10^3/uL Lymph # (Auto) 1.7 (1.2-3.8) 10^3/uL [place] # (Auto) 0.6 (0.3-0.8) 10^3/uL Eos # (Auto) 0.3 (0.0-0.7) 10^3/uL Baso # (Auto) 0.0 (0.0-0.1) 10^3/uL Abs Immat Gran (auto) 0.02 (0.00-0.03) 10^3/uL Imm/Tot Granulo (auto) 0.3 (0.0-0.5) % Sodium 140 (136-145) mmol/L Potassium 3.8 (3.5-5.1) mmol/L Chloride 105 (98-107) mmol/L Carbon Dioxide 24.8 (21.0-32.0) mmol/L Anion Gap 14.0 BUN 24.0 H (7.0-18.0) mg/dL Creatinine 1.26 (0.70-1.30) mg/dL Est GFR ( Amer) >60 (>=60 mL/min/1.73m^2) Est GFR (Non-Af Amer) 55 L (>=60 mL/min/1.73m^2) BUN/Creatinine Ratio 19.0 Glucose 196 H (74-106) mg/dL Calcium 8.5 (8.5-10.1) mg/dL Total Bilirubin 0.4 (0.2-1.0) mg/dL AST 19 (15-37) U/L ALT 23 (16-63) U/L Alkaline Phosphatase 44 L (46-116) U/L Total Protein 6.9 (6.4-8.2) g/dL Albumin 3.5 (3.4-5.0) g/dL Globulin 3.4 g/dL Albumin/Globulin Ratio 1.0 Urine Color Lt. yellow (YELLOW) Urine Clarity Clear (CLEAR) Urine pH 7.0 (5.0-9.0) Ur Specific [place] 1.010 (1.005-1.025) Urine Protein Trace (NEG/TRACE) mg/dL Urine Glucose (UA) 250 A (NEGATIVE) mg/dL Urine Ketones Negative (NEGATIVE) mg/dL Urine Occult Blood Negative (NEGATIVE) Urine Nitrite Negative (NEGATIVE) Urine Bilirubin Negative (NEGATIVE) Urine Urobilinogen 1.0 (0.2-1.0) EU/dL Ur Leukocyte Esterase Negative (NEGATIVE) Urine RBC None seen (0-2) #/HPF Urine WBC None seen (NONE SEEN) #/HPF Ur Squamous Epith Cells None seen (NONE/RARE) #/LPF Urine Crystals None seen (None Seen) #/HPF Urine Bacteria Trace A (NONE SEEN) #/HPF Urine Casts None seen (NONE SEEN) #/LPF Urine Mucus None seen (NONE SEEN) Ur Culture Indicated? No Imaging Data CT scan - abdomen: Attestation: I personally reviewed and interpreted this imaging study as follows: Radiologist's impression: ITS Impressions Abdomen/Pelvis CT 05/06/25 11:25 IMPRESSION: NO OBSTRUCTIVE UROPATHY OR STONE DISEASE. NO BOWEL OBSTRUCTION. MILD TO MODERATE COLONIC STOOL. NO ACUTE FINDINGS. Impression dictated by: Saritha Abebe M.D. 05/06/2025 12:43 PM Dictation Location[facility] Electronically authenticated by: [id number] Y Date: 05/06/2025 12:43 Discharge Plan Discharge Chief Complaint: Abdominal Pain Clinical Impression: Constipation Patient Disposition: Home, Self-Care Time of Disposition Decision: 13:10 Condition: Good Mode of Transportation: Private Vehicle Prescriptions / Home Meds: No Action spironolactone 25 mg tablet 25 mg PO DAILY dexamethasone 4 mg tablet 4 mg PO BID 5 Days Qty: 10 0RF albuterol sulfate 90 mcg/actuation HFA aerosol inhaler 2 inh inhalation Q4H PRN (Reason: shortness of breath or wheezing) Qty: 8.5 0RF Print Language: Slovak Instructions: Constipation (ED) Referrals: ALONSO BOLTON [Primary Care Provider, Family Practice] - 1 week Discharge Date/Time: 05/06/25 13:25
== END 2025-05-06 13:25 | disposition home or self-care (01) ==
PROVIDERS: Emergency Provider Student in an Organized Health Care Education/Training Program; PCP Family Medicine
DX: K59.00 Constipation, unspecified (principal); R10.32 Left lower quadrant pain
CPT/HCPCS: 36415; 74178; 80053; 81001; 85025; 99284; Q9967